=== PATIENT | female | born 1970 | race African-American/Black ===

== ENCOUNTER 2020-05-20 09:59 | Inpatient (IN) | payer MEDICARE, OTHER ==
--- NOTE | 2020-05-20 11:41 | PDOC ---
History of Present Illness - General Chief Complaint: Shortness of Breath Stated Complaint: DIFFICULTY BREATHING Time Seen by Provider: 05/20/20 10:38 - History of Present Illness Initial Comments: Pt is a 49yo F with PMH asthma, anemia, who presents with chest tightness and shortness of breath. Pt reports that she woke at 3am today with SOB, but was able to fall back asleep. Woke up again at 6am with continued SOB and chest t ightness. States that she took her albuterol nebulizer at 8:30a without relief. Chest tightness is described as midsternal pressure that radiates to her back, denies radiation to arms or neck. Denies associated n/v/diaphoresis. Reports associated cold like symptoms x5days with rhinorrhea, sore throat and cough. Reports associated epigastric pain that is non radiating, sharp in nature, not associated with PO intake. Denies any sick contacts, exposure to COVID. Reports that last week, she had similar chest tightness, associated with exertion while going up stairs, a/w nausea and dizziness. Reports that 3mo ago, had similar symptoms, saw her PCP who started her on prednisone x5days and zpack with minimal improvement in symptoms, but states that her symptoms self-resolved. PCP: Aishwarya PMH: see above PSH: Lisa knee replacement Meds: albuterol nebulizer, singulair, zyrtec Allergies: NKDA Social: denies STEVEN Review of Systems CONSTITUTIONAL: denies fever, chills, diaphoresis, generalized weakness, malaise, loss of appetite HEENT: reports rhinorrhea, nasal congestion, sore throat CARDIOVASCULAR: reports chest pain, fast HR; denies syncope, irregular heart rate, lightheadedness, peripheral edema RESPIRATORY: reports cough, shortness of breath, denies hemoptysis GASTROINTESTINAL: reports abdominal pain; denies nausea, vomiting, diarrhea, constipation, melena, hematochezia GENITOURINARY: denies dysuria, frequency, urgency, hematuria MUSCULOSKELETAL: denies myalgia, arthralgia HEMATOLOGIC/IMMUNOLOGIC: denies easy bleeding, easy bruising ENDOCRINE: denies unexplained weight gain, unexplained weight loss NEUROLOGIC: denies headache, loss of consciousness, focal weakness or paresthesias, mental status changes, bladder or bowel incontinence SKIN: denies rash, itching, pallor Physical Exam General: awake, alert, fully oriented, in no acute distress, well developed, well nourished Head: normocephalic, atraumatic Eyes: PERRL, EOMI, anicteric sclera, conjunctiva clear ENT: Auricles normal inspection, hearing grossly normal, nares patent, oropharynx clear without exudates, no nasal congestion, moist mucous membranes Neck: supple, normal ROM, no stridor Lung: equal breath sounds b/l, CTA b/l, no crackles, wheezes; no distress, spe aks full sentences Heart: RRR, normal S1, S2, no murmurs appreciated, diffusely mildly TTP in chest wall Abdomen: soft, TTP in epigastric region, normoactive bowel sounds, no guarding, rebound, masses Extremities: no edema, no erythema or tenderness Neuro: CN2-12 grossly intact, moves all extremities, normal speech, sensation intact Skin: warm, dry, normal skin turgor, capillary refill <2 seconds, no rashes or lesions noted MDM Pt is a 49yo F with PMH asthma, anemia, who presents with chest tightness and shortness of breath. vitals WNL DDx including but not limited to: ACS, asthma exacerbation, PE Workup: labs, cxr, ekg Scores - HEART score - 4 - PERC negative EKG: normal sinus rhythm, HR 68bpm, MD 172ms, QRS 92ms, QTc 418ms, TWI in V2-V6, as seen on previous EKG from 2015 CXR - no pneumothorax or pleural effusion. midline airway, appropriate vascular markings, no blunting of costophrenic angle, no cardiomegaly, as read by ED staff 05/20/20 12:23 Labs: no leukocytosis, no anemia, electrolytes WNL, troponin WNL, BNP WNL, lipase WNL Disposition: Admit tele obs Past History - Medical History Allergies/Adverse Reactions: Allergies Allergy/AdvReac Type Severity Reaction Status Date / Time No Known Allergies Allergy Verified 05/30/15 17:41 Home Medications: Ambulatory Orders Cetirizine HCl [Zyrtec] 10 mg PO DAILY 05/18/12 Albuterol Sulfate Inhaler - [Ventolin HFA Inhaler -] 2 inh IH Q4H PRN #1 inh 09/15/12 Famotidine [Pepcid -] 40 mg PO DAILY 05/21/20 Fluticasone Prop 0.05% Nasal [Flonase -] 1 spray NS DAILY 05/21/20 Montelukast Sodium [Singulair] 10 mg PO DAILY 05/21/20 Omeprazole 40 mg PO DAILY 05/21/20 Salmeterol/Fluticasone [Advair 500Mcg/50Mcg -] 1 inh IH BID 05/21/20 predniSONE [Deltasone -] See Taper PO DAILY 10 Days #53 tablet 05/21/20 Anemia: No Asthma: Yes Cancer: No Cardiac Disorders: No CVA: No COPD: No CHF: No Diabetes: No GI Disorders: No Disorders: No HTN: No Hypercholesterolemia: No Liver Disease: No Seizures: No Thyroid Disease: No - Surgical History Abdominal Surgery: Yes Cholecystectomy: Yes Orthopedic Surgery: Yes (left knee 01/07/2018, right bunion) - Reproductive History Is Patient Now?: No - Psycho-Social/Smoking History Smoking Status: No Smoking History: Never smoked Number of Cigarettes Smoked Daily: 0 - Substance Abuse Hx (Audit-C & DAST Scrn) How often the patient has a drink containing alcohol: Never Score: In Men: 4 or > Positive; In Women: 3 or > Positive: 0 Screen Result (Pos requires Nsg. Audit-10AR): Negative In the last yr the pt used illegal drug/Rx for NonMed reason: No Score: Yes response is considered Positive: 0 Screen Result (Positive result requires Nsg. DAST-10): Negative *Physical Exam - Vital Signs Last Vital Signs Temp Pulse Resp BP Pulse Ox 98.4 F 73 18 149/77 100 05/20/20 10:00 05/20/20 10:00 05/20/20 10:00 05/20/20 10:00 05/20/20 10:00 Heart Score/ECG Review - History History: Moderately suspicious - Electrocardiogram EKG: Non specific repolarization disturbance - Age Age: 45-65 - Risk Factors Risk Factors Heart Score: Yes Hx Obesity Based on the list above the patient has:: 1-2 risk factors - Troponin Troponin: </= normal limit - Score Heart Score - Total: 4 ED Treatment Course - LABORATORY CBC & Chemistry Diagram: 05/21/20 05:38 05/21/20 05:38 Discharge - Discharge Information Problems reviewed: Yes Clinical Impression/Diagnosis: Chest pain Qualifiers: Chest pain type: unspecified Qualified Code(s): R07.9 - Chest pain, unspecified Condition: Stable - Admission Yes - Follow up/Referral - Patient Discharge Instructions - Post Discharge Activity
[2020-05-20 11:52] LABS: BASO % 0.3 % (0-2.0); EOS % 1.1 % (0-4.5); HEMATOCRIT 33.5 % (32.4-45.2); HEMOGLOBIN 11.6 GM/dL (10.7-15.3); MCH 32.3 pg (25.7-33.7); MCHC 34.6 g/dl (32.0-36.0); MEAN CELL VOLUME 93.3 fl (80-96); MEAN PLT VOLUME 8.2 fl (7.5-11.1); MONO % 8.1 % (3.8-10.2); NEUT % 65.5 % (42.8-82.8); PLATELET COUNT 217 K/MM3 (134-434); RBC 3.59 M/mm3 (3.60-5.2); WHITE BLOOD COUNT 5.4 K/mm3 (4.0-10.0)
[2020-05-20 12:13] LABS: N-TERMINAL BNP 72.3 pg/ml (5-125)
[2020-05-20 12:19] LABS: ALBUMIN 3.9 g/dl (3.4-5.0); ALK PHOS 70 U/L (45-117); ANION GAP 4 MMOL/L (8-16); BLOOD UREA NITROGEN 6.8 mg/dL (7-18); CHLORIDE 108 mmol/L (98-107); CO2 29 mmol/L (21-32); CREATININE 0.7 mg/dL (0.55-1.3); GLUCOSE,RANDOM 81 mg/dL (74-106); POTASSIUM 3.5 mmol/L (3.5-5.1); SGOT/AST 20 U/L (15-37); SGPT/ALT 19 U/L (13-61); SODIUM 140 mmol/L (136-145); TOT PROT 7.7 g/dl (6.4-8.2)
--- NOTE | 2020-05-20 12:23 | PDOC ---
Documentation entered by Jasper Silver SCRIBE, acting as scribe for Isaiah Benz MD. Isaiah Benz MD: This documentation has been prepared by the Adrianne zepeda Xhesika, SCRIBE, under my direction and personally reviewed by me in its entirety. I confirm that the documentation accurately reflects all work, treatment, procedures, and medical decision making performed by me. Attending Attestation - Resident Resident Name: Lashay Valerio - ED Attending Attestation I have performed the following: I have examined & evaluated the patient, The case was reviewed & discussed with the resident, I agree w/resident's findings & plan, Exceptions are as noted - HPI HPI: 05/20/20 10:41 The patient is a 49 year old female with a significant PMH of asthma, anemia, obesity, and seasonal allergies who presents to the emergency department for SOB and chest tightness since this morning. Pt states her symptoms started at rest. Pt describes a constant chest tightness associated with sob and diaphresis and does seem to worsen when she is wakling around. she tried her albuterol at home without significant improvement. Pt also noted feeling alittle sweaty with an episode of chest tightness this morning. The patient denies headache and dizziness. Denies fever, cough, vomiting, diarrhea and constipation. Denies dysuria, frequency, urgency and hematuria. Allergies: NKDA PCP:Kimberly Deng - Physicial Exam PE: 05/20/20 12:03 GENERAL: The patient is awake, alert, and fully oriented, Nontoxic - in no acute distress. HEAD: Normocephalic, atraumatic. EYES: extraocular movements intact, sclera anicteric, conjunctiva clear. ENT: Normal voice, Moist mucous membranes. NECK: Normal range of motion, supple LUNGS: NO whezing or actue respiratory distress HEART: Regular rate and rhythm, normal S1 and S2 without murmur, rub or gallop. ABDOMEN: Soft, nontender, No guarding, no rebound. No CVA tenderness EXTREMITIES: Normal range of motion, no edema. NEUROLOGICAL: No facial assymetry, Normal speech, PSYCH: Normal mood, normal affect. SKIN: Warm, Dry, normal turgor, - Medical Decision Making 05/20/20 11:22 consider acs, pulm exam clear will obtain trop/ekg/cxr willr easess 05/20/20 12:57 trops neg will obs for acs riskstratification Heart Score/ECG Review - History History: Moderately suspicious - Electrocardiogram EKG: Non specific repolarization disturbance - Age Age: 45-65 - Risk Factors Risk Factors Heart Score: Yes Positive family hx of cardiac disease, Yes Hx Obesity Based on the list above the patient has:: 1-2 risk factors - Troponin Troponin: </= normal limit - Score Heart Score - Total: 4 - ECG Impressions Comment:: 05/20/20 12:04 Twelve-lead EKG was performed and reviewed by me. There is normal sinus rhythm with a normal rate. The axis is normal. The intervals are normal. There is normal R wave progression Flipped T waves in the anterior leads Discharge - Discharge Information Problems reviewed: Yes Clinical Impression/Diagnosis: Chest pain Qualifiers: Chest pain type: unspecified Qualified Code(s): R07.9 - Chest pain, unspecified Condition: Stable - Follow up/Referral - Patient Discharge Instructions - Post Discharge Activity
[2020-05-20] MEDS ORDERED: ALBUTEROL SO4 2.5/IPRATROPIUM 0.5 INH SOL 3 ML VIAL.NEB. NEB PRN (14:32)
--- NOTE | 2020-05-20 15:56 | EKG ---
Test Reason : Blood Pressure : / mmHG Vent. Rate : 068 BPM Atrial Rate : 068 BPM P-R Int : 172 ms QRS Dur : 092 ms QT Int : 394 ms P-R-T Axes : 033 001 001 degrees QTc Int : 418 ms NORMAL SINUS RHYTHM T WAVE ABNORMALITY, CONSIDER ANTERIOR ISCHEMIA ABNORMAL ECG WHEN COMPARED WITH ECG OF 30-MAY-2015 20:26, NO SIGNIFICANT CHANGE WAS FOUND Confirmed by JESUS ROWAN MD ([id number]) on 05/20/2020 3:55:38 PM Referred By: Confirmed By:JESUS ROWAN MD
--- NOTE | 2020-05-20 16:36 | HP ---
CHIEF COMPLAINT: Shortness of breath and chest tightness for one day PCP: Kimberly Vale HISTORY OF PRESENT ILLNESS: 49yo obese F w/ PMHx of Asthma (hospitalized in 2011), palpitations, seasonal allegies, and anemia, presents to the ED BIBEMS, after calling 911, complaining of SoB and chest tightness for one day. Ptn states that she woke up this morning at 6:30am and experienced headache, chest tightness and shortness of breath at rest, not worse with exertion. Pain described as radiating to both arms and towards her back. She proceeded to wait 2 hours, at which point at 8:30am she used her albuterol inhaler, which provided no relief, and endorsed increased chest tightness and shortness of breath. At this point, she called 911 and was brought to the emergency department. On ROS, patient endorsed mild heat intolerance, and denied any changes in vision, diaphoresis, difficulty swallowing, difficulty with bowel/bladder movements, or changes in sensation. ER course was notable for: (1)CXR: No acute pathology (2)Duonebs 1x (3)EKG: T wave inversion (4)Heart Score: 4 Recent Travel: PAST MEDICAL HISTORY: 1.)Asthma 2.)Seasonal Allergies 3.)Palpitations 4.)Obesity 5.)Anemia PAST SURGICAL HISTORY: 1.)L TKR 2.)?Cholecystectomy Social History: Smoking: No Alcohol: No Drugs: No Allergies No Known Allergies Allergy (Verified 05/30/15 17:41) HOME MEDICATIONS: Home Medications Medication Instructions Recorded Cetirizine HCl [Zyrtec] 10 mg PO DAILY 05/18/12 Albuterol Sulfate Inhaler - 2 inh IH Q4H PRN #1 inh 09/15/12 [Ventolin HFA Inhaler -] REVIEW OF SYSTEMS CONSTITUTIONAL: Absent: fever, chills, diaphoresis, generalized weakness, malaise, loss of appetite, weight change HEENT: Absent: rhinorrhea, nasal congestion, throat swelling, difficulty swallowing, mouth swelling, ear pain, eye pain, visual changes CARDIOVASCULAR: Absent: chest pain, syncope, palpitations, irregular heart rate, lightheadedness, peripheral edema RESPIRATORY: Absent: orthopnea, wheezing, stridor, hemoptysis GASTROINTESTINAL: Absent: abdominal distension, nausea, vomiting, diarrhea, constipation, melena, hematochezia GENITOURINARY: Absent: dysuria, frequency, urgency, hesitancy, hematuria, flank pain, genital pain MUSCULOSKELETAL: Absent: myalgia, arthralgia, joint swelling, back pain, neck pain SKIN: Absent: rash, itching, pallor ENDOCRINE: Absent: unexplained weight gain, unexplained weight loss, cold intolerance NEUROLOGIC: Absent: headache, focal weakness or paresthesias, dizziness, unsteady gait, seizure, mental status changes, bladder or bowel incontinence PSYCHIATRIC: Absent: anxiety, depression PHYSICAL EXAMINATION Vital Signs - 24 hr 05/20/20 05/20/20 10:00 13:58 Temperature 98.4 F 98.1 F Pulse Rate 73 Pulse Rate [ 70 Apical] Respiratory 18 18 Rate Blood Pressure 149/77 Blood Pressure 121/61 [Left Arm] O2 Sat by Pulse 100 100 Oximetry (%) GENERAL: Awake, alert, and fully oriented, in no acute distress. HEAD: Normal with no signs of trauma. EYES: Abnormal extra-occular movements. PERRLA EARS, NOSE, THROAT: Ears normal, nares patent, oropharynx clear without exudates. Moist mucous membranes. NECK: Thyroid tender to palpation Normal range of motion, supple without lymphadenopathy, LUNGS: Breath sounds equal, clear to auscultation bilaterally. No wheezes, and no crackles. No accessory muscle use. HEART: Regular rate and rhythm, normal S1 and S2 without murmur, rub or gallop. ABDOMEN: Soft, tender to deep palpation not distended, normoactive bowel sounds, no guarding MUSCULOSKELETAL: Normal range of motion at all joints. No bony deformities or tenderness. UPPER EXTREMITIES: 2+ pulses, warm, well-perfused. No cyanosis. No clubbing. No peripheral edema. LOWER EXTREMITIES: 2+ pulses, warm, well-perfused. No calf tenderness. NEUROLOGICAL: Normal speech. Gait not tested. PSYCHIATRIC: Cooperative. Good eye contact. Appropriate mood and affect. SKIN: Warm, dry, normal turgor, no rashes or lesions noted, normal capillary refill. Laboratory Results - last 24 hr CBC, BMP 05/20/20 11:30 05/20/20 11:30 Troponin, BNP 05/20/20 05/20/20 05/20/20 11:30 11:30 15:10 Troponin I < 0.02 < 0.02 B-Natriuretic Peptide 72.3 Active Medications Generic Name Dose Route Start Last Admin Trade Name Freq PRN Reason Stop Dose Admin Albuterol/Ipratropium 1 amp 05/20/20 14:32 Duoneb - NEB Q4H PRN SHORTNESS OF BREATH Enoxaparin Sodium 40 mg 05/20/20 16:30 Lovenox - SQ DAILY LILLY Famotidine 20 mg 05/20/20 16:45 Pepcid - PO DAILY LILLY Fluticasone Propionate 1 spray 05/20/20 16:45 Flonase - NS DAILY LILLY Lidocaine/Aluminum/Magnesium/Simeth 5 ml 05/20/20 18:00 Magic Mouthwash *Sjr Formula* - MM Q6HPO LILLY Methylprednisolone Sodium Succinate 60 mg 05/20/20 18:00 Solu-Medrol - IVPUSH Q8H-IV LILLY Montelukast Sodium 5 mg 05/20/20 22:00 Singulair - PO HS LILLY ASSESSMENT/PLAN: 49yo obese F w/ PMHx of Asthma (hospitalized in 2011), palpitations, seasonal allegies, and anemia, presents to the ED BIBEMS, after calling 911, complaining of SoB and chest tightness. CXR: No acute Pathology EKG: NORMAL SINUS RHYTHM T WAVE ABNORMALITY, CONSIDER ANTERIOR ISCHEMIA. No change from previous EKG ACUTE ON CHRONIC ASTHMA EXACERBATION -Hx of Asthma w/ Hospitalization in 2011 -Hx of seasonal allergies -Reports SoB -Start Solumedrol 60mg q8 -Start Singulair -Start Flonase -FU Peak Flow -FU Pulm Consult GASTROESOPHAGEAL REFLUX DISEASE -Endorses throat pain possibly 2/2 coughing -Start Famotidine 20mg PO -Start Magic Mouthwash ACS RULE OUT -Hx of chest tightness -BP on each arm equal -Unlikely 2/2 Troponins Negative x2 -FU EKG for any progression of T waves -Consult Cardiology RULE OUT HYPERTHYROIDISM -Hx of heat intolerance -Hx of palpitations -FU TSH, FT4 Family Medical History Family History: As Documented Visit type - Emergency Visit Emergency Visit: Yes ED Registration Date: 05/20/20 Care time: The patient presented to the Emergency Department on the above date and was hospitalized for further evaluation of their emergent condition. - New Patient This patient is new to me today: Yes Date on this admission: 05/20/20 - Critical Care Critical Care patient: No ATTENDING PHYSICIAN STATEMENT I saw and evaluated the patient. I reviewed the resident's note and discussed the case with the resident. I agree with the resident's findings and plan as documented. SUBJECTIVE: OBJECTIVE: ASSESSMENT AND PLAN:
--- NOTE | 2020-05-20 19:18 | PN ---
Teaching Attending Note Name of Resident: Sherif Teixeira ATTENDING PHYSICIAN STATEMENT I saw and evaluated the patient. I reviewed the resident's note and discussed the case with the resident. I agree with the resident's findings and plan as documented. SUBJECTIVE: Patient seen and examined at bedside, admitted for acute SAIMA, and ACS to be ruled out. Low likelihood of ACS considering trops neg. x2, EKG however showing diffuse TWI, will admit for obs. OBJECTIVE: GA NAD, answering to questions intermittent cough HEENT NC/aT, no nasal flaring Chest end expiratory wheezing b/l, no increased WOB CVS s1, S2+, RRR Abd obese, Soft, NT, BS+ Ext no LE edema, no calf tenderness Vital Signs - 24 hr 05/20/20 05/20/20 10:00 13:58 Temperature 98.4 F 98.1 F Pulse Rate 73 Pulse Rate [ 70 Apical] Respiratory 18 18 Rate Blood Pressure 149/77 Blood Pressure 121/61 [Left Arm] O2 Sat by Pulse 100 100 Oximetry (%) Laboratory Results - last 24 hr 05/20/20 05/20/20 05/20/20 11:30 11:30 11:30 WBC 5.4 RBC 3.59 L Hgb 11.6 Hct 33.5 MCV 93.3 MCH 32.3 MCHC 34.6 RDW 15.0 Plt Count 217 MPV 8.2 Absolute Neuts (auto) 3.5 Neutrophils % 65.5 Lymphocytes % 25.0 D Monocytes % 8.1 D Eosinophils % 1.1 Basophils % 0.3 Nucleated RBC % 0 Sodium 140 Potassium 3.5 Chloride 108 H Carbon Dioxide 29 Anion Gap 4 L BUN 6.8 L Creatinine 0.7 Est GFR (CKD-EPI)AfAm 118.74 Est GFR (CKD-EPI)NonAf 102.45 Random Glucose 81 Calcium 9.0 Total Bilirubin 1.0 AST 20 ALT 19 Alkaline Phosphatase 70 Creatine Kinase 58 Troponin I < 0.02 B-Natriuretic Peptide 72.3 Total Protein 7.7 Albumin 3.9 Lipase 113 Urine HCG, Qual 05/20/20 05/20/20 15:10 15:55 WBC RBC Hgb Hct MCV MCH MCHC RDW Plt Count MPV Absolute Neuts (auto) Neutrophils % Lymphocytes % Monocytes % Eosinophils % Basophils % Nucleated RBC % Sodium Potassium Chloride Carbon Dioxide Anion Gap BUN Creatinine Est GFR (CKD-EPI)AfAm Est GFR (CKD-EPI)NonAf Random Glucose Calcium Total Bilirubin AST ALT Alkaline Phosphatase Creatine Kinase Troponin I < 0.02 B-Natriuretic Peptide Total Protein Albumin Lipase Urine HCG, Qual Negative Home Medications Medication Instructions Recorded Cetirizine HCl [Zyrtec] 10 mg PO DAILY 05/18/12 Albuterol Sulfate Inhaler - 2 inh IH Q4H PRN #1 inh 09/15/12 [Ventolin HFA Inhaler -] Current Medications Generic Name Dose Route Start Last Admin Trade Name Elana PRN Reason Stop Dose Admin Albuterol/Ipratropium 1 amp 05/20/20 14:32 Duoneb - NEB Q4H PRN SHORTNESS OF BREATH Enoxaparin Sodium 40 mg 05/20/20 16:30 Lovenox - SQ DAILY LILLY Famotidine 20 mg 05/20/20 16:45 Pepcid - PO DAILY LILLY Fluticasone Propionate 1 spray 05/20/20 16:45 Flonase - NS DAILY LILLY Lidocaine/Aluminum/Magnesium/Simeth 5 ml 05/20/20 18:00 Magic Mouthwash *Sjr Formula* - MM Q6HPO LILLY Methylprednisolone Sodium Succinate 60 mg 05/20/20 18:00 Solu-Medrol - IVPUSH Q8H-IV LILLY Montelukast Sodium 5 mg 05/20/20 22:00 Singulair - PO HS LILLY ASSESSMENT AND PLAN: 49 F Moderate persistent asthma with acute exacerbation HTN Allergic rhinitis Seasonal allergies Suspected GERD ACS ruled out Plan: Cont. duonebs/IV steroids/PPI/nasal steroids Monitoring w/ peak flow meter, obtain Utox, TFTs Pulmonary evaluation for uncontrolled asthma DVT ppx: Lovenox SC
[2020-05-20] MEDS ORDERED: ENOXAPARIN NA (PORCINE) 40 MG/0.4 ML DISP.SYRIN SQ ONE (20:23)
[2020-05-20] MEDS ORDERED: methylPREDNISolone NA SUCC 40 MG/1 ML VIAL ONE (20:23)
[2020-05-20] MEDS ORDERED: FAMOTIDINE 20 MG TABLET ONE (20:23)
[2020-05-20] MEDS: ENOXAPARIN NA (PORCINE) 40 MG/0.4 ML DISP.SYRIN SQ SCH (20:39)
[2020-05-20] MEDS: MAG HYDROX/ALH/SMC/DPHA/LIDO 240 ML MOUTHWASH MM SCH ×2 (20:39→23:57)
[2020-05-20] MEDS: FAMOTIDINE 20 MG TABLET PO SCH (20:40)
[2020-05-20] MEDS: methylPREDNISolone NA SUCC 40 MG/1 ML VIAL IVPUSH SCH (20:40)
[2020-05-20] MEDS ORDERED: MONTELUKAST NA 5 MG TAB.CHEW PO SCH (22:00)
[2020-05-20] MEDS: FLUTICASONE PROP 0.05% 16 GM NASAL SPRAY NS SCH (22:31)
[2020-05-20] MEDS ORDERED: ALBUTEROL SO4 HFA INHALER IH PRN (23:20)
[2020-05-21 00:30] VITALS: BMI 36.2
[2020-05-21] MEDS: methylPREDNISolone NA SUCC 40 MG/1 ML VIAL IVPUSH SCH ×2 (02:57→09:37)
[2020-05-21] MEDS: MAG HYDROX/ALH/SMC/DPHA/LIDO 240 ML MOUTHWASH MM SCH ×2 (06:44→13:00)
[2020-05-21 07:07] LABS: BASO % 0.1 % (0-2.0); HEMATOCRIT 35.1 % (32.4-45.2); HEMOGLOBIN 12.2 GM/dL (10.7-15.3); LYMPH % 7.4 % (8-40); MCH 32.2 pg (25.7-33.7); MCHC 34.8 g/dl (32.0-36.0); MEAN CELL VOLUME 92.5 fl (80-96); MEAN PLT VOLUME 8.2 fl (7.5-11.1); MONO % 0.6 % (3.8-10.2); NEUT % 91.9 % (42.8-82.8); PLATELET COUNT 241 K/MM3 (134-434); RDW 14.6 % (11.6-15.6); WHITE BLOOD COUNT 6.3 K/mm3 (4.0-10.0)
[2020-05-21 07:31] LABS: ALBUMIN 3.7 g/dl (3.4-5.0); BLOOD UREA NITROGEN 9.9 mg/dL (7-18); CALCIUM 9.3 mg/dL (8.5-10.1); CREATININE 0.7 mg/dL (0.55-1.3); MAGNESIUM 2.2 mg/dL (1.8-2.4); PHOSPHOROUS 3.5 mg/dL (2.5-4.9); POTASSIUM 3.9 mmol/L (3.5-5.1); TOT PROT 7.5 g/dl (6.4-8.2)
--- NOTE | 2020-05-21 09:27 | EKG ---
Test Reason : Blood Pressure : / mmHG Vent. Rate : 063 BPM Atrial Rate : 063 BPM P-R Int : 176 ms QRS Dur : 098 ms QT Int : 408 ms P-R-T Axes : 045 -03 -01 degrees QTc Int : 417 ms NORMAL SINUS RHYTHM MINIMAL VOLTAGE CRITERIA FOR LVH, MAY BE NORMAL VARIANT T WAVE ABNORMALITY, CONSIDER ANTERIOR ISCHEMIA ABNORMAL ECG WHEN COMPARED WITH ECG OF 20-MAY-2020 11:06, NO SIGNIFICANT CHANGE WAS FOUND Confirmed by MD OLLIE, RYNE ([id number]) on 05/21/2020 9:27:11 AM Referred By: Confirmed By:RYNE LEVIN MD
[2020-05-21] MEDS: FLUTICASONE PROP 0.05% 16 GM NASAL SPRAY NS SCH (09:36)
[2020-05-21] MEDS: ENOXAPARIN NA (PORCINE) 40 MG/0.4 ML DISP.SYRIN SQ SCH (09:37)
[2020-05-21] MEDS: FAMOTIDINE 20 MG TABLET PO SCH (09:37)
[2020-05-21 09:51] VITALS: PULSE 86
--- NOTE | 2020-05-21 09:51 | CON.CARD ---
Consult Consult Specialty:: Cardiology Referred by:: Hospitalist Service Reason for Consultation:: Cardiac evaluation - History of Present Illness Chief Complaint: Shortness of breath History of Present Illness: Patient is a 49 year old female with underlying history of bronchial asthma and seasonal allergy who presented with shortness of breath and chest tightness. She experienced headache, shortness of breath and chest tightness upon waking up and used her inhaler without any relief of symptoms. Initial troponin was negative and she was tested negative for COVID. Currently, she denies chest pain or palpitations. She is breathing comfortable. She denies PND or orthopnea. She denies fever or chills. She denies nausea, vomiting, diarrhea or abdominal pain. She denies headache or lightheadedness. She denies cough or expectorations. - History Source History Provided By: Patient, Medical Record Limitations to Obtaining History: No Limitations - Past Medical History Pulmonary: Yes: Asthma ...LMP: 12/04/16 ...LMP Comment: 2017 - Alcohol/Substance Use Hx Alcohol Use: No - Smoking History Smoking history: Never smoked Have you smoked in the past 12 months: No Aproximately how many cigarettes per day: 0 Home Medications - Allergies Allergies/Adverse Reactions: Allergies Allergy/AdvReac Type Severity Reaction Status Date / Time No Known Allergies Allergy Verified 05/30/15 17:41 - Home Medications Home Medications: Ambulatory Orders Cetirizine HCl [Zyrtec] 10 mg PO DAILY 05/18/12 Albuterol Sulfate Inhaler - [Ventolin HFA Inhaler -] 2 inh IH Q4H PRN #1 inh 09/15/12 Review of Systems - Review of Systems Constitutional: denies: Chills, Fever Cardiovascular: reports: Shortness of Breath. denies: Chest Pain, Palpitations Respiratory: reports: SOB, SOB on Exertion. denies: Cough, Hemoptysis, O rthopnea, PND, Wheezing Gastrointestinal: denies: Abdominal Pain, Constipation, Diarrhea, Melena, Nausea, Rectal Bleeding, Vomiting Musculoskeletal: denies: Back Pain, Joint Pain Neurological: denies: Dizziness, Headache, Seizure, Syncope Vital Signs: Vital Signs Temperature 98 F 05/21/20 09:00 Pulse Rate 86 05/21/20 09:00 Respiratory Rate 18 05/21/20 09:00 Blood Pressure 154/76 05/21/20 09:00 O2 Sat by Pulse Oximetry (%) 98 05/21/20 09:00 Eyes: Yes: PERRL HENT: Yes: Atraumatic Neck: Yes: Supple Respiratory: Yes: CTA Bilaterally Gastrointestinal: Yes: Normal Bowel Sounds, Soft. No: Tenderness Cardiovascular: Yes: Regular Rate and Rhythm JVD: No Carotid Bruit: No PMI: Non-Displaced Heart Sounds: Yes: S1, S2. No: Gallop Edema: No - Other Data Labs, Other Data: CBC, BMP 05/21/20 05:38 05/21/20 05:38 Troponin, BNP 05/20/20 05/20/20 05/20/20 11:30 11:30 15:10 Troponin I < 0.02 < 0.02 B-Natriuretic Peptide 72.3 Laboratory Results - last 24 hr 05/20/20 05/21/20 05/21/20 20:30 00:00 05:38 WBC 6.3 RBC 3.80 Hgb 12.2 Hct 35.1 MCV 92.5 MCH 32.2 MCHC 34.8 RDW 14.6 Plt Count 241 MPV 8.2 Absolute Neuts (auto) 5.8 Total Counted 100 Neutrophils % 91.9 H D Neutrophils % (Manual) 95.0 H Band Neutrophils % 2.0 Lymphocytes % 7.4 L D Lymphocytes % (Manual) 3.0 L Monocytes % 0.6 L D Monocytes % (Manual) 0 L Eosinophils % 0.0 D Eosinophils % (Manual) 0.0 Basophils % 0.1 Basophils % (Manual) 0.0 Myelocytes % (Man) 0 Promyelocytes % (Man) 0 Blast Cells % (Manual) 0 Nucleated RBC % 0 Metamyelocytes 0 Plasma Cells 0 Hypochromia 0 Platelet Estimate Normal Platelet Comment Present Polychromasia 1+ Poikilocytosis 0 Anisocytosis 0 Microcytosis 0 Macrocytosis 0 Sodium Potassium Chloride Carbon Dioxide Anion Gap BUN Creatinine Est GFR (CKD-EPI)AfAm Est GFR (CKD-EPI)NonAf POC Glucometer 121 Random Glucose Calcium Phosphorus Magnesium Total Bilirubin AST ALT Alkaline Phosphatase Troponin I Total Protein Albumin TSH Cancelled Free T4 Cancelled Thyroxine (T4) Urine HCG, Qual COVID-19 (VENESSA) 05/21/20 05/21/20 05:38 05:50 WBC RBC Hgb Hct MCV MCH MCHC RDW Plt Count MPV Absolute Neuts (auto) Total Counted Neutrophils % Neutrophils % (Manual) Band Neutrophils % Lymphocytes % Lymphocytes % (Manual) Monocytes % Monocytes % (Manual) Eosinophils % Eosinophils % (Manual) Basophils % Basophils % (Manual) Myelocytes % (Man) Promyelocytes % (Man) Blast Cells % (Manual) Nucleated RBC % Metamyelocytes Plasma Cells Hypochromia Platelet Estimate Platelet Comment Polychromasia Poikilocytosis Anisocytosis Microcytosis Macrocytosis Sodium 139 Potassium 3.9 Chloride 106 Carbon Dioxide 28 Anion Gap 5 L BUN 9.9 Creatinine 0.7 Est GFR (CKD-EPI)AfAm 118.74 Est GFR (CKD-EPI)NonAf 102.45 POC Glucometer 138 Random Glucose 130 H Calcium 9.3 Phosphorus 3.5 Magnesium 2.2 Total Bilirubin 1.0 AST 17 ALT 18 Alkaline Phosphatase 68 Troponin I Total Protein 7.5 Albumin 3.7 TSH Free T4 Thyroxine (T4) Urine HCG, Qual COVID-19 (VENESSA) Sinus rhythm with T abnormality in anterior leads Echo: Pending Imaging - Results Chest X-ray: Report Reviewed (Unremarkable) EKG: Report Reviewed Problem List - Problems (1) Shortness of breath Code(s): R06.02 - SHORTNESS OF BREATH (2) Abnormal ECG Code(s): R94.31 - ABNORMAL ELECTROCARDIOGRAM [ECG] [EKG] (3) Asthma Code(s): J45.909 - UNSPECIFIED ASTHMA, UNCOMPLICATED Assessment/Plan 1. Shortness of breath with underlying bronchial asthma with exacerbation 2. Abnormal ECG rule out CAD PLAN: 1. Echocardiography to assess LV/RV and valvular function 2. Trend troponin 3. Bronchodilator and steroids taper 4. If above negative, further cardiac work up including stress testing can be done as outpatient Patient is to follow up in our office, [facility] Thank you for consultation Candido Sterling MD
[2020-05-21 10:32] LABS: ANISOCYTOSIS 0; MACROCYTOSIS 0; PLATELET ESTIMATE NORMAL
[2020-05-21] MEDS ORDERED: PT OWN MED DRAWER 7, Y5N ONE (12:49)
--- NOTE | 2020-05-21 12:58 | PN ---
Progress Note (short form) - Note Progress Note: PULMONARY CONSULTATION DICTATED 05/21/20 IMP DYSPNEA ACUTE ASTHMA EXACERBATION SEASONAL ALLERGIES PLAN PREDNISONE INHALED BRONCHODILATORS MONITOR PEAK FLOW IGE LEVEL PFTS OUTPATIENT DR AMAYA Problem List - Problems (1) Chest pain Code(s): R07.9 - CHEST PAIN, UNSPECIFIED Qualifiers: Chest pain type: unspecified Qualified Code(s): R07.9 - Chest pain, unspecified (2) Asthma Code(s): J45.909 - UNSPECIFIED ASTHMA, UNCOMPLICATED (3) Shortness of breath Code(s): R06.02 - SHORTNESS OF BREATH
--- NOTE | 2020-05-21 13:39 | ECHO ---
Name: CRISTO MOODY Exam:Adult Echocardiogram Study Date: 05/21/2020 11:46 AM Age: 49 yrs Reason For Study: CHEST TIGHTNESS Height: 64 in Weight: 211 lb BSA: 2.0 m2 MMode/2D Measurements & Calculations RVDd: 3.0 cm Ao root diam: 2.5 cm IVSd: 0.86 cm LA dimension: 3.6 cm LVIDd: 4.7 cm ACS: 1.6 cm LVIDs: 3.1 cm LVPWd: 0.97 cm EDV(Teich): 104.8 ml LVOT diam: 2.2 cm ESV(Teich): 37.9 ml LAV (MOD-bp): 60.0 ml TAPSE: 2.4 cm RV S Michael: 13.1 cm/sec Doppler Measurements & Calculations MV E max michael: 72.1 cm/sec Ao V2 max: 148.0 cm/sec MV A max michael: 94.8 cm/sec Ao max P.8 mmHg MV E/A: 0.76 Ao V2 mean: 96.3 cm/sec MV dec time: 0.21 sec Ao mean P.3 mmHg Ao V2 VTI: 25.4 cm FRANCISCO JAVIER(I,D): 3.2 cm2 FRANCISCO JAVIER(V,D): 3.2 cm2 LV V1 max P.8 mmHg SV(LVOT): 80.5 ml LV V1 mean P.5 mmHg LV V1 max: 120.4 cm/sec LV V1 mean: 71.1 cm/sec LV V1 VTI: 20.8 cm TR max michael: 227.4 cm/sec PA V2 max: 104.5 cm/sec TR max P.7 mmHg PA max P.4 mmHg PA acc slope: 586.0 cm/sec2 PA acc time: 0.18 sec Med Peak E' Michael: 7.9 cm/sec PA pr(Accel): -0.22 mmHg Med E/e': 9.1 Lat Peak E' Michael: 9.3 cm/sec Lat E/e': 7.8 Left Ventricle The left ventricular size, thickness and function are normal. Ejection Fraction = 60%. The transmitra l spectral Doppler flow pattern is normal for age. Right Ventricle The right ventricle is normal in size and function. Atria Normal left and right atrial size and function. Mitral Valve The mitral valve is normal in structure and function. There is trace mitral regurgitation. Tricuspid Valve The tricuspid valve is normal in structure and function. No tricuspid regurgitation. There was insuff icient TR detected to calculate RV systolic pressure. Aortic Valve The aortic valve is normal in structure and function. Pulmonic Valve The pulmonic valve is not well seen, but is grossly normal. Great Vessels The aortic root is normal size. Normal aortic arch, descending and ascending aorta. Pericardium/Pleura There is no pericardial effusion. Interpretation Summary This was essentially a normal study. MD Monica Judge 05/21/2020 01:38 PM
[2020-05-21 15:12] VITALS: BP 154/75; TEMP 98.5
--- NOTE | 2020-05-21 15:42 | CONS ---
PULMONARY CONSULTATION DATE OF CONSULTATION: 05/21/2020 REFERRING PHYSICIAN: Herb Luong MD HISTORY: Patient is a 49-year-old female, past medical history of asthma, no history of respiratory failure, hospitalized in 2011; palpitations; seasonal allergies; anemia, nonsmoker, admitted to on May 20 with complaint of shortness of breath and chest tightness of 1 day duration. Patient states she woke up on the morning of admission complaining of a headache, some chest tightness and shortness of breath at rest. She also describes the chest discomfort as radiating to both arms and towards her back. She apparently waited 2 hours until approximately 8:30 a.m. when she used her albuterol inhaler which offered no relief at which time she presented to the emergency room. Patient denies any nausea, vomiting or diaphoresis. She does complain of some chest tightness. During her hospitalization the patient was started on IV steroids, inhaled bronchodilators, good clinical response. PAST MEDICAL HISTORY: Again, includes asthma, seasonal allergies, palpitations, anemia. REVIEW OF SYSTEMS: Positive shortness of breath. Positive chest tightness. No cough. No hemoptysis. No fever. No weight loss. No night sweats. CURRENT MEDICATIONS: Include Medrol, Lovenox, albuterol, DuoNeb, Flonase, Pepcid, Singulair and Magic Mouthwash. PHYSICAL EXAMINATION: General: Patient is a well-developed, well-nourished female awake, alert in no acute distress. Vital Signs: She is currently afebrile. Blood pressure is 154/76. Respiratory rate is 18. O2 saturation is 98% on room air. HEENT: Normocephalic, atraumatic. Neck: Supple. Heart: Regular with S1, S2. Chest: Clear. Abdomen: Soft. Bowel sounds are positive. Extremities: No cyanosis or edema. LABORATORIES: WBC of 6.3, hemoglobin 12.2, hematocrit 35.1, a platelet count of 241,000. BUN 9, creatinine 0.7. COVID is negative. Chest x-ray: No infiltrates and no effusions. IMPRESSION: 1. Dyspnea secondary to acute asthma exacerbation. 2. History of seasonal allergies. SUGGEST: Prednisone, inhaled bronchodilators. Monitor peak flow. Serum IgE level as outpatient, alpha-1 antitrypsin level as outpatient, PFTs as outpatient. HERB AMAYA M.D. ROHITH/[id number]
--- NOTE | 2020-05-21 16:16 | DS ---
Physical Exam: SUBJECTIVE: Patient seen and examined this morning. Ptn endorses decreased "chest tightness" likely 2/2 muscular reasons, as well as improved breathing. Denies SoB, CP, REA, changes in vision. Talking in full sentences, no acute distress. OBJECTIVE: Vital Signs Period Temp Pulse Resp BP Sys/Shepherd Pulse Ox Last 24 Hr 97.8 F-98.8 F 66-86 18-18 122-154/73-93 98-100 PHYSICAL EXAM ENERAL: Awake, alert, and fully oriented, in no acute distress. HEAD: Normal with no signs of trauma. EYES: Abnormal extra-occular movements. PERRLA EARS, NOSE, THROAT: Ears normal, nares patent, oropharynx clear without exudates. Moist mucous membranes. NECK: Thyroid tender to palpation Normal range of motion, supple without lymphadenopathy, LUNGS: Breath sounds equal, clear to auscultation bilaterally. No wheezes, and no crackles. No accessory muscle use. HEART: Regular rate and rhythm, normal S1 and S2 without murmur, rub or gallop. ABDOMEN: Soft, tender to deep palpation not distended, normoactive bowel sounds, no guarding MUSCULOSKELETAL: Normal range of motion at all joints. No bony deformities or tenderness. UPPER EXTREMITIES: 2+ pulses, warm, well-perfused. No cyanosis. No clubbing. No peripheral edema. LOWER EXTREMITIES: 2+ pulses, warm, well-perfused. No calf tenderness. NEUROLOGICAL: Normal speech. Gait not tested. PSYCHIATRIC: Cooperative. Good eye contact. Appropriate mood and affect. SKIN: Warm, dry, normal turgor, no rashes or lesions noted, normal capillary refill. LABS Laboratory Results - last 24 hr 05/20/20 05/20/20 05/20/20 13:05 15:10 15:55 WBC RBC Hgb Hct MCV MCH MCHC RDW Plt Count MPV Absolute Neuts (auto) Total Counted Neutrophils % Neutrophils % (Manual) Band Neutrophils % Lymphocytes % Lymphocytes % (Manual) Monocytes % Monocytes % (Manual) Eosinophils % Eosinophils % (Manual) Basophils % Basophils % (Manual) Myelocytes % (Man) Promyelocytes % (Man) Blast Cells % (Manual) Nucleated RBC % Metamyelocytes Plasma Cells Hypochromia Platelet Estimate Platelet Comment Polychromasia Poikilocytosis Anisocytosis Microcytosis Macrocytosis Sodium Potassium Chloride Carbon Dioxide Anion Gap BUN Creatinine Est GFR (CKD-EPI)AfAm Est GFR (CKD-EPI)NonAf POC Glucometer Random Glucose Calcium Phosphorus Magnesium Total Bilirubin AST ALT Alkaline Phosphatase Troponin I < 0.02 Total Protein Albumin TSH 2.59 Free T4 1.07 Thyroxine (T4) 12.0 Urine HCG, Qual Negative COVID-19 (VENESSA) Not detected 05/20/20 05/21/20 05/21/20 20:30 00:00 05:38 WBC 6.3 RBC 3.80 Hgb 12.2 Hct 35.1 MCV 92.5 MCH 32.2 MCHC 34.8 RDW 14.6 Plt Count 241 MPV 8.2 Absolute Neuts (auto) 5.8 Total Counted 100 Neutrophils % 91.9 H D Neutrophils % (Manual) 95.0 H Band Neutrophils % 2.0 Lymphocytes % 7.4 L D Lymphocytes % (Manual) 3.0 L Monocytes % 0.6 L D Monocytes % (Manual) 0 L Eosinophils % 0.0 D Eosinophils % (Manual) 0.0 Basophils % 0.1 Basophils % (Manual) 0.0 Myelocytes % (Man) 0 Promyelocytes % (Man) 0 Blast Cells % (Manual) 0 Nucleated RBC % 0 Metamyelocytes 0 Plasma Cells 0 Hypochromia 0 Platelet Estimate Normal Platelet Comment Present Polychromasia 1+ Poikilocytosis 0 Anisocytosis 0 Microcytosis 0 Macrocytosis 0 Sodium Potassium Chloride Carbon Dioxide Anion Gap BUN Creatinine Est GFR (CKD-EPI)AfAm Est GFR (CKD-EPI)NonAf POC Glucometer 121 Random Glucose Calcium Phosphorus Magnesium Total Bilirubin AST ALT Alkaline Phosphatase Troponin I Total Protein Albumin TSH Cancelled Free T4 Cancelled Thyroxine (T4) Urine HCG, Qual COVID-19 (VENESSA) 05/21/20 05/21/20 05:38 05:50 WBC RBC Hgb Hct MCV MCH MCHC RDW Plt Count MPV Absolute Neuts (auto) Total Counted Neutrophils % Neutrophils % (Manual) Band Neutrophils % Lymphocytes % Lymphocytes % (Manual) Monocytes % Monocytes % (Manual) Eosinophils % Eosinophils % (Manual) Basophils % Basophils % (Manual) Myelocytes % (Man) Promyelocytes % (Man) Blast Cells % (Manual) Nucleated RBC % Metamyelocytes Plasma Cells Hypochromia Platelet Estimate Platelet Comment Polychromasia Poikilocytosis Anisocytosis Microcytosis Macrocytosis Sodium 139 Potassium 3.9 Chloride 106 Carbon Dioxide 28 Anion Gap 5 L BUN 9.9 Creatinine 0.7 Est GFR (CKD-EPI)AfAm 118.74 Est GFR (CKD-EPI)NonAf 102.45 POC Glucometer 138 Random Glucose 130 H Calcium 9.3 Phosphorus 3.5 Magnesium 2.2 Total Bilirubin 1.0 AST 17 ALT 18 Alkaline Phosphatase 68 Troponin I Total Protein 7.5 Albumin 3.7 TSH Free T4 Thyroxine (T4) Urine HCG, Qual COVID-19 (VENESSA) HOSPITAL COURSE: Date of Admission:05/20/20 ECHO: EF 60%, trace mitral regurg, rest wnl CXR: No acute Pathology EKG: NORMAL SINUS RHYTHM T WAVE ABNORMALITY, CONSIDER ANTERIOR ISCHEMIA. No change from previous EKG Date of Discharge: 05/21/20 49yo obese F w/ PMHx of Asthma (hospitalized in 2011), palpitations, seasonal allegies, and anemia, presents to the ED BIBEMS, after calling 911, complaining of SoB and chest tightness for one day. Ptn states that she woke up this morning at 6:30am and experienced headache, chest tightness and shortness of breath at rest, not worse with exertion. Pain described as radiating to both arms and towards her back. She proceeded to wait 2 hours, at which point at 8:30am she used her albuterol inhaler, which provided no relief, and endorsed increased chest tightness and shortness of breath. At this point, she called 911 and was brought to the emergency department. On ROS, patient endorsed mild heat intolerance, and denied any changes in vision, diaphoresis, difficulty swallowing, difficulty with bowel/bladder movements, or changes in sensation. ER course was notable for: (1)CXR: No acute pathology (2)Duonebs 1x (3)EKG: T wave inversion (4)Heart Score: 4 The patient was admitted to the floor where she was started on solumedrol 60 q8, duonebs, fluticasone, famotidine, singulair, and magic mouthwash. Patient showed improvement in symptoms. Her chest tightness was deemed to be due to muskuloskeletal reasons and ACS was ruled out in favor of acute asthma exacerbation. Additionally, TSH FT4 were normal and thyroid pathology was ruled out. The patient was DCd on a steroid taper. Of Note: Discharge medications were changed following patient's departure to reflect Nystatin for her tinea pedis infection, as well as DCing Flonase. Minutes to complete discharge: 36 Discharge Summary Problems reviewed: Yes Reason For Visit: ACUTE CORONARY SYNDROME Current Active Problems Chest pain (Acute) Abnormal ECG (Chronic) Asthma (Chronic) Condition: Stable - Instructions Diet, Activity, Other Instructions: Your visit: You were admitted to the hospital for shortness of breath and chest tightness. You were found to have an asthma attack. You were treated with medication to improve your breathing. Of note, during your course here, we additionally found: 1.)Abnormal heart rhythm on your EKG, for which we have referred you to a snow removing supervisor for. Medications changes: -Please take Prednisone as directed below for 10 days. It is important to take it as prescribed for the full 10 days: Day: Dose: Pills #: 1 60mg 12 2 50mg 10 3 40mg 8 4 30mg 6 5 20mg 4 6 20mg 4 7 15mg 3 8 10mg 2 9 5mg 1 10 5mg 1 -Continue to take all other home medications as prescribed. Follow up: - Please follow-up with your Mainframe Architect or Dr. Sherif Hamilton with in 1 week to evaluate your asthma. - Please follow-up with Dr. Candido Sterling (Cardiology) within 1 week to discuss your abnormal heart rhythm. - Please follow-up with Dr. Jorge Brown (ENT) in 1 week for allergy testing. - Please follow-up with Dr. Kimberly Vale (Primary Care) in 2 weeks. Additional Instructions: -You are being discharged to your home. -Please return to the Emergency Department if you experience worsening pain, fevers, chills, shortness of breath, or chest pain, or if you experience any worsening, new or concerning symptoms. Referrals: Sherif Hamilton MD [Staff Physician] - 1 Week Kimberly Neff NP [Primary Care Provider] - 2 Weeks Candido Sterling MD [Staff Physician] - 1 Week Jorge Brown MD [Staff Physician] - 1 Week Disposition: HOME - Home Medications Comprehensive Discharge Medication List: Ambulatory Orders Cetirizine HCl [Zyrtec] 10 mg PO DAILY 05/18/12 Albuterol Sulfate Inhaler - [Ventolin HFA Inhaler -] 2 inh IH Q4H PRN #1 inh 01/10/13 Famotidine [Pepcid -] 40 mg PO DAILY 05/21/20 Fluticasone Prop 0.05% Nasal [Flonase -] 1 spray NS DAILY 05/21/20 Montelukast Sodium [Singulair] 10 mg PO DAILY 05/21/20 Omeprazole 40 mg PO DAILY 05/21/20 Salmeterol/Fluticasone [Advair 500Mcg/50Mcg -] 1 inh IH BID 05/21/20 predniSONE [Deltasone -] See Taper PO DAILY 10 Days #53 tablet 05/21/20 This patient is new to me today: No Emergency Visit: No Critical Care patient: No - Discharge Referral Referred to [facility] No ATTENDING PHYSICIAN STATEMENT I saw and evaluated the patient. I reviewed the resident's note and discussed the case with the resident. I agree with the resident's findings and plan as documented. SUBJECTIVE: OBJECTIVE: ASSESSMENT AND PLAN:
--- NOTE | 2020-05-21 17:28 | PN ---
Teaching Attending Note Name of Resident: Sherif Teixeira ATTENDING PHYSICIAN STATEMENT I saw and evaluated the patient. I reviewed the resident's note and discussed the case with the resident. I agree with the resident's findings and plan as documented. SUBJECTIVE: Seen around noon. no fever or chills. No REA . she reports chest tightness but no actual pain, tightness is worse with cough and is located over the whole precordium in general she feels much better. OBJECTIVE: NAD ,awake, alert, cooperative , comfortable and speaks in full sentences . No tachypnia CV: RRR, 2/6 SM at RUSB TTP over L and R chest wall and in sternal area Lungs: good air entry, no wheezing Ext: No edema or erythema . fungal infection in 1st interdigital web in both feet . no erythema on feet . no tenderness Abd: soft, NT, Nd. ASSESSMENT AND PLAN: 49 y/o lady with h/o Asthma , palpitations, seasonal allergies, and anemia who presented with SOb and chest tightness. she was diagnosed with Asthma exacerbation 1- Asthma exacerbation . mild. lung exam as above. no distress. sx improved - cont prednsione taper at hoem - cont advair cont Ventolin - No need for flonase . she will be called ( left already) 2- Chest tightness.likely due to asthma. chest tenderness with palpation makes ACS less likely. EKG changes on EKG , did not change on repeat EKG ( third EKG done today) - f/u with card for out pt stress test 3- Tinea pedis : prescribe topical antifungal. pt left already, but will be called by team to infom her dispo : Home
[2020-05-21] MEDS ORDERED: predniSONE 20 MG TABLET (UD) PO SCH (18:00)
== END 2020-05-21 17:20 | disposition home or self-care (01) | DRG 203 ==
LOC: JER 09:59 → SUPCPDRO 09:59 → JERBED 12:55 → OBSVTOIN 16:23 → J4W 21:24
PROVIDERS: ATTEND Internal Medicine
DX: J45.41 Moderate persistent asthma with (acute) exacerbation (principal); R94.31 Abnormal electrocardiogram [ECG] [EKG]; R07.89 Other chest pain; B35.3 Tinea pedis; E66.9 Obesity, unspecified; Z68.36 Body mass index [BMI] 36.0-36.9, adult; D64.9 Anemia, unspecified; Z96.652 Presence of left artificial knee joint; R00.2 Palpitations
CPT/HCPCS: 36415; 71045-TC-FY; 80053; 82550; 82962; 83690; 83735; 83880; 84100; 84436; 84439; 84443; 84484; 84703; 85025; 93005; 93010; 93306-TC; 99285-25; G0378; U0003

== ENCOUNTER 2020-06-01 10:32 | Emergency (ER) | payer MEDICARE, OTHER ==
[2020-06-01 10:39] VITALS: TEMP 98.4; BMI 36.6
--- OUTSIDE RECORDS SUMMARY | 2020-06-01 11:07 | XMS ---
:1970 Author Organization [facility] Care Team Providers Name Role Phone Lavelledar Judah Sood Unavailable Barrie Laureano Unavailable Barrie Laureano Unavailable Barrie Laureano Unavailable Barrie Laureano Unavailable Barrie Laureano Unavailable Barrie Laureano Unavailable Sridevi, Barrie Unavailable Sridevi, Barrie Unavailable Barrie Laureano Unavailable Re-disclosure Warning The records that you are about to access may contain information from federally- assisted alcohol or drug abuse programs. If such information is present, then the following federally mandated warning applies: This information has been disclosed to you from records protected by federal confidentiality rules (42 CFR part 2). The federal rules prohibit you from making any further disclosure of this information unless further disclosure is expressly permitted by the written consent of the person to whom it pertains or as otherwise permitted by 42 CFR part 2. A general authorization for the release of medical or other information is NOT sufficient for this purpose. The Federal rules restrict any use of the information to criminally investigate or prosecute any alcohol or drug abuse patient.The records that you are about to access may contain highly sensitive health information, the redisclosure of which is protected by Article 27-F of the [facility] Public Health law. If you continue you may haveaccess to information: Regarding HIV / AIDS; Provided by facilities licensed or operated by the [facility] Office of Mental Health; or Provided by the [facility] Office for People With Developmental Disabilities. If such information is present, then the following [facility] mandated warning applies: This information has been disclosed to you from confidential records which are protected by state law. State law prohibits you from making any further disclosure of this information without the specific written consent of the person to whom it pertains, or as otherwise permitted by law. Any unauthorized further disclosure in violation of state law may result in a fine or senior living sentence or both. A general authorization for the release of medical or other information is NOT sufficient authorization for further disclosure. Allergies and Adverse Reactions Type Description Substance Reaction Status Data Source(s ) No Known Allergies No Known Allergies No Known Allergies eCW3 ([facility]) No Known Allergies No Known Allergies No Known Allergies eCW3 ([facility]) No Known Allergies No Known Allergies No Known Allergies eCW3 ([facility]) No Known Allergies No Known Allergies No Known Allergies eCW3 ([facility]) No Known Allergies No Known Allergies No Known Allergies eCW3 ([facility]) No Known Allergies No Known Allergies No Known Allergies eCW3 ([facility]) No Known Allergies No Known Allergies No Known Allergies eCW3 ([facility]) No Known Allergies No Known Allergies No Known Allergies eCW3 ([facility]) No Known Allergies No Known Allergies No Known Allergies eCW3 ([facility]) No Known Allergies No Known Allergies No Known Allergies eCW3 ([facility]) No Known Allergies No Known Allergies No Known Allergies eCW3 ([facility]) No Known Allergies No Known Allergies No Known Allergies eCW3 ([facility]) No Known Allergies No Known Allergies No Known Allergies eCW3 ([facility]) No Known Allergies No Known Allergies No Known Allergies eCW3 ([facility]) No Information No Information No Information eC W2 ([facility]) No Information No Information No Information eC W2 ([facility]) No Information No Information No Information eC W2 ([facility]) No Information No Information No Information eC W2 ([facility]) No Known Allergies No Known Allergies No Known Allergies eCW2 ([facility]) No Known Allergies No Known Allergies No Known Allergies eCW2 ([facility]) No Known Allergies No Known Allergies No known allergies eCW3 ([facility]) Encounters Encounter Providers Location Date Indications Data Source(s ) Attender: Judah 03/14/2020 [facility] ( [facility] 12:00:00 AM EDT Medical, ) Office Attender: Judah Laureano 03/14/2020 12:00:00 AM EDT [facility] [place] [place] Attender: Judah Laureano 03/14/2020 12:00:00 AM EDT [facility] [place] [place] Office [facility] 06/21/2019 12:00:00 eCW3 ([facility] A28 AM EDT - 06/21/2019 [facility] 12:00:00 AM EDT Care) Outpatient [facility] 05/29/2019 12:00:00 eCW3 ([facility] A28 AM EDT - 05/29/2019 [facility] 12:00:00 AM EDT Care) Outpatient [facility] 05/18/2019 12:00:00 eCW3 ([facility] A28 AM EDT - 05/18/2019 [facility] 12:00:00 AM EDT Care) Outpatient [facility] 04/25/2019 12:00:00 eCW3 ([facility] A28 AM EDT - 04/25/2019 [facility] 12:00:00 AM EDT Care) Outpatient [facility] 03/20/2019 12:00:00 eCW3 ([facility] A28 AM EDT - 03/20/2019 [facility] 12:00:00 AM EDT Care) Outpatient [facility] 02/27/2019 12:00:00 eCW3 ([facility] A28 AM EDT - 02/27/2019 [facility] 12:00:00 AM EDT Care) Outpatient [facility] 02/01/2019 12:00:00 eCW3 ([facility] A28 AM EDT - 02/01/2019 [facility] 12:00:00 AM EDT Care) Outpatient [facility] 01/24/2019 12:00:00 eCW3 ([facility] A28 AM EDT - 01/24/2019 [facility] 12:00:00 AM EDT Care) Outpatient [facility] 01/10/2019 12:00:00 eCW3 ([facility] A28 AM EDT - 01/10/2019 [facility] 12:00:00 AM EDT Care) Outpatient [facility] 01/09/2019 12:00:00 eCW3 ([facility] A28 AM EDT - 01/09/2019 [facility] 12:00:00 AM EDT Care) Outpatient [facility] 01/03/2019 12:00:00 eCW3 ([facility] A28 AM EDT - 01/03/2019 [facility] 12:00:00 AM EDT Care) Outpatient [facility] 12/19/2018 12:00:00 eCW3 ([facility] A28 AM EDT - 12/19/2018 [facility] 12:00:00 AM EDT Care) Outpatient [facility] 12/07/2018 12:00:00 eCW3 ([facility] A28 AM EDT - 12/07/2018 [facility] 12:00:00 AM EDT Care) Outpatient [facility] 11/22/2018 12:00:00 eCW3 ([facility] A28 AM EDT - 11/22/2018 [facility] 12:00:00 AM EDT Care) Outpatient [facility] 11/01/2018 12:00:00 eCW3 ([facility] A28 AM EST - 11/01/2018 [facility] 12:00:00 AM EST Care) [facility] Bhargav Holman 09/21/2018 12:00: 00 eCW2 ([facility] AM EST [facility] [place] Cal[place] 09/16/2018 12:00: 00 eCW2 ([facility] AM EST [facility]) [place] Calabresenahed Hol[place] 09/08/2018 12:00: 00 eCW2 ([facility] AM EST [facility]) [facility] Lisakayden Holman 09/01/2018 12:00:0 0 eCW2 ([facility] AM EST [facility]) [facility] Lisakayden Holman 08/31/2018 12:00: 00 eCW2 ([facility] AM EST [facility]) [place] Perezkayden Holman 08/29/2018 12:00: 00 eCW2 ([facility] AM EST [facility]) [place] Perezkayden Hol[facility] 08/24/2018 12:00: 00 eCW2 ([facility] AM EST [facility]) [place] Perezkayden Holman 08/05/2018 12:00: 00 eCW2 ([facility] AM EST [facility]) [place] Perezkayden Holman 08/01/2018 12:00: 00 eCW2 ([facility] AM EST [facility]) [place] Perezkayden Holman 07/25/2018 12:00: 00 eCW2 ([facility] AM EST [facility]) [place] Perezkayden Holman 07/18/2018 12:00: 00 eCW2 ([facility] AM EST [facility]) [place] Perezkayden [facility] 07/11/2018 12:00: 00 eCW2 ([facility] AM EST [facility]) [place] Perezkayden Holman 07/05/2018 12:00: 00 eCW2 ([facility] AM EDT [facility]) [place] Perezkayden Holman 07/05/2018 12:00: 00 eCW2 ([facility] AM EDT [facility]) [place] Perezkayden Holman 06/28/2018 12:00: 00 eCW2 ([facility] AM EDT [facility]) [place] Perezkayden Holman 06/27/2018 12:00: 00 eCW2 ([facility] AM EDT [facility]) [place] Perezkayden Holman 06/22/2018 12:00: 00 eCW2 ([facility] AM EDT [facility]) [place] Perezkayden Holman 06/18/2018 12:00: 00 eCW2 ([facility] AM EDT [facility]) [place] Perezkayden Holman 06/16/2018 12:00: 00 eCW2 ([facility] AM EDT [facility]) [place] Perezkayden Holman 06/14/2018 12:00: 00 eCW2 ([facility] AM EDT [facility]) [place] Perez[place]den [facility] 06/09/2018 12:00: 00 eCW2 ([facility] AM EDT [facility]) [place] Perezkayden Holman 06/09/2018 12:00: 00 eCW2 ([facility] AM EDT [facility]) [place] Lisa Holman 06/08/2018 12:00: 00 eCW2 ([facility] AM EDT [facility]) [place] Perezkayden Holman 06/08/2018 12:00: 00 eCW2 ([facility] AM EDT [facility]) [place] Lisa Jonesabailya 06/08/2018 12:00: 00 eCW2 ([facility] AM EDT [facility]) [place] Ozun[place]ers Lisa Holman 06/02/2018 12:00: 00 eCW2 ([facility] AM EDT [facility]) [place] Calabresenahed Jonesabailya 05/26/2018 12:00: 00 eCW2 ([facility] AM EDT [facility]) [place] Jonesabailya 05/16/2018 12:00: 00 eCW2 ([facility] AM EDT [facility]) [place] Perezkayden Holman 04/28/2018 12:00: 00 eCW2 ([facility] AM EDT [facility]) [place] Perezkayden Jonesabailya 04/21/2018 12:00: 00 eCW2 ([facility] AM EDT [facility]) [place] Perezkayden Holman 04/18/2018 12:00: 00 eCW2 ([facility] AM EDT [facility]) [place] Perezkayden Holman 04/18/2018 12:00: 00 eCW2 ([facility] AM EDT [facility]) [place] Perezkayden Jonesabailya 04/14/2018 12:00: 00 eCW2 ([facility] AM EDT [facility]) [place] Perezkayden Jonesabailya 04/14/2018 12:00: 00 eCW2 ([facility] AM EDT [facility]) [place] Perezkayden Jonesabailya 04/13/2018 12:00: 00 eCW2 ([facility] AM EDT [facility]) [place] Perezkayden Jonesabailya 04/04/2018 12:00: 00 eCW2 ([facility] AM EDT [facility]) [place] Lisa Jonesabailya 03/23/2018 12:00: 00 eCW2 ([facility] AM EDT [facility]) [facility] [place] Lisa Jonesabailya 03/21/2018 12: 00:00 eCW2 ([facility] AM EDT [facility]) [place] Ozun[place] Lisa Jonesabailya 03/15/2018 12:00: 00 eCW2 ([facility] AM EDT [facility]) [place] Jonesabailya 03/07/2018 12:00: 00 eCW2 ([facility] AM EDT [facility]) [place] Calabresen Karenabartaj 03/07/2018 12:00: 00 eCW2 ([facility] AM EDT [facility]) [place] Calabresen Karenabailya 03/03/2018 12:00: 00 eCW2 ([facility] AM EDT [facility]) [facility] Lisa Karenabartaj 03/01/2018 12:0 0:00 eCW2 ([facility] AM EDT [facility]) [place] Calabresenahed Jonesabailya 03/01/2018 12:00: 00 eCW2 ([facility] AM EDT [facility]) [place] Calabresenahed Jonesabailya 02/28/2018 12:00: 00 eCW2 ([facility] AM EDT [facility]) [place] Calabresenahed Jonesabailya 02/22/2018 12:00: 00 eCW2 ([facility] AM EDT [facility]) [place] Calabresenahed Jonesabailya 01/27/2018 12:00: 00 eCW2 ([facility] AM EDT [facility]) [place] Calabresenahed Jonesabailya 12/23/2017 12:00: 00 eCW2 ([facility] AM EDT [facility]) [place] Perezkayden Jonesabailya 12/20/2017 12:00: 00 eCW2 ([facility] AM EDT [facility]) [place] Perezkayden Jonesabailya 12/16/2017 12:00: 00 eCW2 ([facility] AM EDT [facility]) [place] Perezkayden Jonesabailya 12/06/2017 12:00: 00 eCW2 ([facility] AM EDT [facility]) [place] Calabresenahed Holman 12/02/2017 12:00: 00 eCW2 ([facility] AM EDT [facility]) [place] Calabresenahed Holman 11/12/2017 12:00: 00 eCW2 ([facility] AM EST [facility]) [place] Perezkayden Holman 11/03/2017 12:00: 00 eCW2 ([facility] AM EST [facility]) [place] Perezkayden Holman 10/29/2017 12:00: 00 eCW2 ([facility] AM EST [facility]) [place] Calabresenahed Holman 10/28/2017 12:00: 00 eCW2 ([facility] AM EST [facility]) [place] Perezkayden Holman 10/27/2017 12:00: 00 eCW2 ([facility] AM EST [facility]) [place] Perezkayden Holman 10/26/2017 12:00: 00 eCW2 ([facility] AM EST [facility]) [place] Perezkayden Holman 10/12/2017 12:00: 00 eCW2 ([facility] AM EST [facility]) [place] Perezkayden Holman 10/05/2017 12:00: 00 eCW2 ([facility] AM EST [facility]) [place] Perezkayden Holman 10/01/2017 12:00: 00 eCW2 ([facility] AM EST [facility]) [place] Oz[place] Lisa Holman 09/29/2017 12:00: 00 eCW2 ([facility] AM EST [facility]) [place] Lisa Holman 09/14/2017 12:00: 00 eCW2 ([facility] AM EST [facility]) [place] Lisa Holman 09/13/2017 12:00: 00 eCW2 ([facility] AM EST [facility]) [facility] [place] Lisa Holman 09/08/2017 12: 00:00 eCW2 ([facility] AM EST [facility]) [place] Lisa Holman 08/27/2017 12:00: 00 eCW2 ([facility] AM EST [facility]) [place] Lisa Holman 08/18/2017 12:00: 00 eCW2 ([facility] AM EST [facility]) [place] Lisa Holman 08/05/2017 12:00: 00 eCW2 ([facility] AM EST [facility]) [place] Lisa Holman 08/02/2017 12:00: 00 eCW2 ([facility] AM EST [facility]) [place] Lisa Holman 07/31/2017 12:00: 00 eCW2 ([facility] AM EST [facility]) [place] Lisa Holman 07/16/2017 12:00: 00 eCW2 ([facility] AM EST [facility]) [place] Lisa Holman 07/14/2017 12:00: 00 eCW2 ([facility] AM EST [facility]) [place] Lisa Holman 06/22/2017 12:00: 00 eCW2 ([facility] AM EDT [facility]) [place] Lisa Holman 06/18/2017 12:00: 00 eCW2 ([facility] AM EDT [facility]) [place] Lisa Holman 06/16/2017 12:00: 00 eCW2 ([facility] AM EDT [facility]) [place] Oz[place] Lisa Holman 06/15/2017 12:00: 00 eCW2 ([facility] AM EDT [facility]) [place] Lisa Holman 06/07/2017 12:00: 00 eCW2 ([facility] AM EDT [facility]) [place] Calabresenahed Jonesabailya 05/24/2017 12:00: 00 eCW2 ([facility] AM EDT [facility]) [place] Perezkayden Jonesabailya 05/12/2017 12:00: 00 eCW2 ([facility] AM EDT [facility]) [place] Perezkayden Holman 05/07/2017 12:00: 00 eCW2 ([facility] AM EDT [facility]) [place] Perezkayden Holman 05/05/2017 12:00: 00 eCW2 ([facility] AM EDT [facility]) [place] Perezkayden Jonesabailya 04/14/2017 12:00: 00 eCW2 ([facility] AM EDT [facility]) [facility] Lisanahed Holman 04/14/2017 12:0 0:00 eCW2 ([facility] AM EDT [facility]) [place] Calabresenahed Jonesabailya 04/09/2017 12:00: 00 eCW2 ([facility] AM EDT [facility]) [place] Perezkayden Jonesabailya 04/05/2017 12:00: 00 eCW2 ([facility] AM EDT [facility]) [place] Perezkayden Jonesabailya 03/04/2017 12:00: 00 eCW2 ([facility] AM EDT [facility]) [place] Perezkayden Jonesabailya 03/01/2017 12:00: 00 eCW2 ([facility] AM EDT [facility]) [place] Ozunanchaitanya Perezkayden Jonesabailya 02/26/2017 12:00: 00 eCW2 ([facility] AM EDT [facility]) [place] Lisa Jonesabailya 02/15/2017 12:00: 00 eCW2 ([facility] AM EDT [facility]) [place] Perezkayden Jonesabailya 01/28/2017 12:00: 00 eCW2 ([facility] AM EDT [facility]) [place] Calabresenahed Holman 01/26/2017 12:00: 00 eCW2 ([facility] AM EDT [facility]) [place] Perezkayden Holman 01/26/2017 12:00: 00 eCW2 ([facility] AM EDT [facility]) [place] Perezkayden Holman 01/13/2017 12:00: 00 eCW2 ([facility] AM EDT [facility]) [place] Perezkayden Holman 01/01/2017 12:00: 00 eCW2 ([facility] AM EDT [facility]) [place] Perezkayden Holman 12/30/2016 12:00: 00 eCW2 ([facility] AM EDT [facility]) [place] Perezkayden Holman 12/21/2016 12:00: 00 eCW2 ([facility] AM EDT [facility]) [place] Perezkayden Holman 12/18/2016 12:00: 00 eCW2 ([facility] AM EDT [facility]) [place] Perezkayden Holman 12/14/2016 12:00: 00 eCW2 ([facility] AM EDT [facility]) [place] Perezkayden Jonesabailya 12/14/2016 12:00: 00 eCW2 ([facility] AM EDT [facility]) [place] Dur[place] Lisa Jonesabailya 12/07/2016 12:00: 00 eCW2 ([facility] AM EDT [facility]) [place] Oz[place]ers Lisa Jonesabailya 11/30/2016 12:00: 00 eCW2 ([facility] AM EDT [facility]) [place] Lisa Holman 11/26/2016 12:00: 00 eCW2 ([facility] AM EDT [facility]) [place] Calabresenahed Holman 11/13/2016 12:00: 00 eCW2 ([facility] AM EST [facility]) [place] Calabresenahed Holman 11/10/2016 12:00: 00 eCW2 ([facility] AM EST [facility]) [place] Perezkayden Holman 10/29/2016 12:00: 00 eCW2 ([facility] AM EST [facility]) [place] Perezkayden Holman 10/22/2016 12:00: 00 eCW2 ([facility] AM EST [facility]) [place] Calabresenahed Holman 10/15/2016 12:00: 00 eCW2 ([facility] AM EST [facility]) [place] Perezkayden Holman 10/13/2016 12:00: 00 eCW2 ([facility] AM EST [facility]) [place] Calabresenahed Holman 10/13/2016 12:00: 00 eCW2 ([facility] AM EST [facility]) [place] Calabresenahed Holman 10/05/2016 12:00: 00 eCW2 ([facility] AM EST [facility]) [place] Perezkayden Holman 09/24/2016 12:00: 00 eCW2 ([facility] AM EST [facility]) [place] Perezkayden Holman 09/22/2016 12:00: 00 eCW2 ([facility] AM EST [facility]) [place] Lisa Holman 09/16/2016 12:00: 00 eCW2 ([facility] AM EST [facility]) [place] Oz[place] Lisa Holman 09/09/2016 12:00: 00 eCW2 ([facility] AM EST [facility]) [place] Calabresenahed Jonesdonellilya 08/27/2016 12:00: 00 eCW2 ([facility] AM EST [facility]) [place] Calabresenahed Holman 08/21/2016 12:00: 00 eCW2 ([facility] AM EST [facility]) [place] Calabresenahed Holman 08/13/2016 12:00: 00 eCW2 ([facility] AM EST [facility]) [place] Calabresenahed Holman 08/05/2016 12:00: 00 eCW2 ([facility] AM EST [facility]) [place] Calabresenahed Holman 07/29/2016 12:00: 00 eCW2 ([facility] AM EST [facility]) [place] Calabresenahed Holman 07/23/2016 12:00: 00 eCW2 ([facility] AM EST [facility]) [place] Perezkayden Holman 07/17/2016 12:00: 00 eCW2 ([facility] AM EST [facility]) [place] Calabresenahed Holman 07/15/2016 12:00: 00 eCW2 ([facility] AM EST [facility]) [place] Calabresenahed Holman 07/03/2016 12:00: 00 eCW2 ([facility] AM EDT [facility]) [place] Perezkayden Holman 06/30/2016 12:00: 00 eCW2 ([facility] AM EDT [facility]) [place] Perezkayden Holman 06/18/2016 12:00: 00 eCW2 ([facility] AM EDT [facility]) [place] Perezkayden Holman 06/16/2016 12:00: 00 eCW2 ([facility] AM EDT [facility]) [place] Perezkayden Holman 06/09/2016 12:00: 00 eCW2 ([facility] AM EDT [facility]) [place] Calabresenahed Jonesabailya 06/01/2016 12:00: 00 eCW2 ([facility] AM EDT [facility]) [place] Calabresenahed Jonseabailya 05/20/2016 12:00: 00 eCW2 ([facility] AM EDT [facility]) [place] Perezkayden Jonesabailya 05/19/2016 12:00: 00 eCW2 ([facility] AM EDT [facility]) [place] Calabresenahed Jonesabailya 04/30/2016 12:00: 00 eCW2 ([facility] AM EDT [facility]) [place] Perezkayden Jonesabailya 04/10/2016 12:00: 00 eCW2 ([facility] AM EDT [facility]) [place] Perezkayden Jonesabailya 04/07/2016 12:00: 00 eCW2 ([facility] AM EDT [facility]) [place] Perezkayden Jonesabailya 04/02/2016 12:00: 00 eCW2 ([facility] AM EDT [facility]) [place] Perezkayden Jonesabailya 04/02/2016 12:00: 00 eCW2 ([facility] AM EDT [facility]) [place] Perezkayden Jonesabailya 03/11/2016 12:00: 00 eCW2 ([facility] AM EDT [facility] [facility] [place] Perezkayden Jonesabailya 03/10/2016 12:00: 00 eCW2 ([facility] [place] Perezkayden Jonesabailya 02/24/2016 12:00: 00 eCW2 ([facility] [place] Ozunanchaitanya Perezkayden Jonesabartaj 02/21/2016 12:00: 00 eCW2 ([facility] [place] Perezkayden Jonesabailya 02/21/2016 12:00: 00 eCW2 ([facility]) [place] Calabresenahed Holman 02/10/2016 12:00: 00 eCW2 ([facility] [place] Calabresenahed Holman 01/13/2016 12:00: 00 eCW2 ([facility] [place] Calabresenahed Holman 01/10/2016 12:00: 00 eCW2 ([facility] [place] Calabresenahed Holman 01/09/2016 12:00: 00 eCW2 ([facility] [place] Calabresenahed Holman 01/03/2016 12:00: 00 eCW2 ([facility] [place] Calabresenahed Holman 12/31/2015 12:00: 00 eCW2 ([facility] [place] Calabresenahed Holman 12/27/2015 12:00: 00 eCW2 ([facility] [place] Calabresenahed Hloman 12/13/2015 12:00: 00 eCW2 ([facility] [place] Perezkayden Holman 12/09/2015 12:00: 00 eCW2 ([facility] [place] Perezkayden Jonesabailya 11/28/2015 12:00: 00 eCW2 ([facility] [place] Perezkayden Jonesabailya 10/31/2015 12:00: 00 eCW2 ([facility] [place] Ozunankers Lisa Holman 10/30/2015 12:00: 00 eCW2 ([facility] [place] Calabresenahed Holman 10/30/2015 12:00: 00 eCW2 ([facility] [place] Calabresenahed Holman 10/28/2015 12:00: 00 eCW2 ([facility]) [place] Perezkayden Holman 10/08/2015 12:00: 00 eCW2 ([facility] [place] Perezkayden Holman 09/27/2015 12:00: 00 eCW2 ([facility] [place] Calabresenahed Holman 09/18/2015 12:00: 00 eCW2 ([facility] [place] Perezkayden Holman 09/17/2015 12:00: 00 eCW2 ([facility] [place] Perezkayden Holman 09/04/2015 12:00: 00 eCW2 ([facility] [place] Perezkayden Holman 08/15/2015 12:00: 00 eCW2 ([facility] [place] Perezkayden Holman 08/05/2015 12:00: 00 eCW2 ([facility] [place] Perezkayden Holman 07/23/2015 12:00: 00 eCW2 ([facility] [place] Dur[place] Lisa Holman 07/23/2015 12:00: 00 eCW2 ([facility] [place] Durant Lisa Holman 07/15/2015 12:00: 00 eCW2 ([facility] [place] Ozunankers Lisa Holman 07/10/2015 12:00: 00 eCW2 ([facility]) [place] Perezkayden Holman 07/08/2015 12:00: 00 eCW2 ([facility]) [place] Perezkayden Holman 07/04/2015 12:00: 00 eCW2 ([facility]) [place] Perezkayden Holman 06/21/2015 12:00: 00 eCW2 ([facility]) [place] Perezkayden Holman 06/20/2015 12:00: 00 eCW2 ([facility]) [place] Perezkayden Holman 06/19/2015 12:00: 00 eCW2 ([facility]) Verona Perezkayden Holman 06/18/2015 12:00: 00 eCW2 ([facility]) [place] Perezkayden Holman 06/10/2015 12:00: 00 eCW2 ([facility]) [place] Perezkayden Holman 05/31/2015 12:00: 00 eCW2 ([facility]) [place] Ozunankers Lisa Holman 05/27/2015 12:00: 00 eCW2 ([facility]) [place] Perezkayden Holman 05/27/2015 12:00: 00 eCW2 ([facility]) [place] Ozunankers Lisa Holman 04/09/2015 12:00: 00 eCW2 ([facility]) [place] Ozunankers Lisa Jonesabailya 03/26/2015 12:00: 00 eCW2 ([facility]) [place] Ozunankers Lisa Nguyenger 03/19/2015 12:00: 00 eCW2 ([facility]) [place] Calabresenahed Holman 03/15/2015 12:00: 00 eCW2 ([facility]) [place] Perezkayden Holman 03/11/2015 12:00: 00 eCW2 ([facility] [place] Perezkayden Holman 02/27/2015 12:00: 00 eCW2 ([facility]) [place] Calabresenahed Holman 02/25/2015 12:00: 00 eCW2 ([facility] [place] Perezkayden Holman 02/05/2015 12:00: 00 eCW2 ([facility] [place] Perezkayden Holman 01/23/2015 12:00: 00 eCW2 ([facility] [place] Perezkayden Holman 01/08/2015 12:00: 00 eCW2 ([facility] [place] Perezkayden Holman 01/07/2015 12:00: 00 eCW2 ([facility] [place] Perezkayden Holman 12/27/2014 12:00: 00 eCW2 ([facility] [place] Perezkayden Holman 12/20/2014 12:00: 00 eCW2 ([facility] [place] Lisa Jonesabailya 12/18/2014 12: 00:00 eCW2 ([facility] [place] Ozunankers Lisa Holman 12/13/2014 12:00: 00 eCW2 ([facility]) [place] Perezkayden Holman 11/20/2014 12:00: 00 eCW2 [facility] 12: 00:00 eCW2 ([facility]) Ver[place] Perezkayden Holman 11/19/2014 12:00: 00 eCW2 ([facility]) [place] Perezkayden Holman 10/25/2014 12:00: 00 eCW2 ([facility]) [place] Perezkayden Holman 10/17/2014 12:00: 00 eCW2 ([facility]) [place] Ozunankers Lisa Holman 08/31/2014 12:00: 00 eCW2 ([facility] [place] Perezkayden Holman 08/20/2014 12:00: 00 eCW2 ([facility] [place] Durant Lisa Holman 08/08/2014 12:00: 00 eCW2 ([facility] [place] Ozunankers Lisa Holman 07/30/2014 12:00: 00 eCW2 ([facility] [place] Durant Lisa Holman 07/28/2014 12:00: 00 eCW2 ([facility] [place] Ozunankers Lisa Holman 07/23/2014 12:00: 00 eCW2 ([facility] [place] Ozunankers Lisa Holman 07/20/2014 12:00: 00 eCW2 ([facility] [place] Ozunankers Lisa Holman 07/02/2014 12:00: 00 eCW2 ([facility]) [place] Calabresenahed Holman 06/14/2014 12:00: 00 eCW2 ([facility] [place] Perezkayden Holman 06/06/2014 12:00: 00 eCW2 ([facility] [place] Perezkayden Holman 04/19/2014 12:00: 00 eCW2 ([facility] [place] Perezkayden Holman 04/18/2014 12:00: 00 eCW2 ([facility]) [place] Durant Lisa Holman 04/16/2014 12:00: 00 eCW2 ([facility]) [place] Ozunankers Lisa Holman 04/12/2014 12:00: 00 eCW2 ([facility] [place] Lisa Holman 03/27/2014 12: 00:00 eCW2 ([facility]) [place] Perezkayden Holman 03/19/2014 12:00: 00 eCW2 ([facility]) [place] Durant Lisa Holman 03/13/2014 12:00: 00 eCW2 ([facility]) [place] Ozunankers Lisa Jonesabailya 03/13/2014 12:00: 00 eCW2 ([facility]) [place] Ozunankers Lisa Holman 03/05/2014 12:00: 00 eCW2 ([facility]) [place] Ozunankers Lisa Holman 02/13/2014 12:00: 00 eCW2 ([facility]) [place] Perezkayden Holman 02/05/2014 12:00: 00 eCW2 ([facility]) [place] Perezkayden Holman 01/23/2014 12:00: 00 eCW2 ([facility]) [place] Perezkayden Holman 12/26/2013 12:00: 00 eCW2 ([facility]) Ver[place] Perezkayden Holman 12/15/2013 12:00: 00 eCW2 ([facility]) [place] Perezkayden Holman 12/15/2013 12:00: 00 eCW2 ([facility]) [place] Perezkayden Holman 12/14/2013 12:00: 00 eCW2 ([facility]) [place] Perezkayden Holman 11/02/2013 12:00: 00 eCW2 ([facility]) [place] Perezkayden Holman 09/18/2013 12:00: 00 eCW2 ([facility]) [place] Perezkayden Holman 09/18/2013 12:00: 00 eCW2 ([facility]) [place] Perezkayden Holman 08/28/2013 12:00: 00 eCW2 ([facility]) [place] Ozunankers Lisa Holman 08/22/2013 12:00: 00 eCW2 ([facility]) [place] Durant Lisa Holman 08/21/2013 12:00: 00 eCW2 ([facility]) [place] Ozunankers Lisa Holman 08/07/2013 12:00: 00 eCW2 ([facility]) [place] Calabresen Noahilya 07/24/2013 12:00: 00 eCW2 ([facility]) [place] Calabresen Noahilya 07/20/2013 12:00: 00 eCW2 ([facility]) [place] Perezlyn Noahilya 06/22/2013 12:00: 00 eCW2 ([facility]) [place] Calabresenahed Jonesdonellilya 06/21/2013 12:00: 00 eCW2 ([facility]) [place] Calabresenahed Holman 06/15/2013 12:00: 00 eCW2 ([facility]) [place] Perezkayden Holman 06/08/2013 12:00: 00 eCW2 ([facility]) [place] Calabresen Noahilya 06/08/2013 12:00: 00 eCW2 ([facility]) [place] Calabresenahed Jonesdonellilya 05/22/2013 12:00: 00 eCW2 ([facility]) [place] Perezkayden Holman 05/18/2013 12:00: 00 eCW2 ([facility]) [place] Calabresenahed Jonesdonellilya 04/29/2013 12:00: 00 eCW2 ([facility]) [place] Perezkayden Holman 04/28/2013 12:00: 00 eCW2 ([facility]) [place] Perezkayden Holman 04/27/2013 12:00: 00 eCW2 ([facility]) [place] Zamorailya 04/25/2013 12:00: 00 eCW2 ([facility]) [place] Calabresen Noahilya 02/23/2013 12:00: 00 eCW2 ([facility]) [place] Calabresen Noahilya 01/17/2013 12:00: 00 eCW2 ([facility]) [place] Calabresen Noahilya 01/13/2013 12:00: 00 eCW2 ([facility]) [place] Calabresen Noahilya 12/26/2012 12:00: 00 eCW2 ([facility]) [place] Calabresenahed Jonesdonellilya 12/16/2012 12:00: 00 eCW2 ([facility]) [place] Calabresenahed Jonesdonellilya 12/14/2012 12:00: 00 eCW2 ([facility]) [place] Calabresenahed Jonesdonellilya 12/05/2012 12:00: 00 eCW2 ([facility]) [place] Calabresenahed Jonesdonellilya 10/31/2012 12:00: 00 eCW2 ([facility]) [place] Calabresenahed Holman 10/21/2012 12:00: 00 eCW2 ([facility]) [place] Perezkayden Holman 10/18/2012 12:00: 00 eCW2 ([facility]) [place] Perezkayden Holman 10/17/2012 12:00: 00 eCW2 ([facility]) [place] Perezkayden Holman 10/13/2012 12:00: 00 eCW2 ([facility]) Ver[place] Perezkayden Holman 09/19/2012 12:00: 00 eCW2 ([facility]) Verona Perezkayden Holman 09/15/2012 12:00: 00 eCW2 ([facility]) Ver[place] Ozunankers Lisa Holman 09/05/2012 12:00: 00 eCW2 ([facility]) Ver[place] Perezkayden Holman 08/15/2012 12:00: 00 eCW2 ([facility]) [place] Dur[place] Lisa Holman 08/05/2012 12:00: 00 eCW2 ([facility]) [place] Ozunankers Lisa Holman 07/25/2012 12:00: 00 eCW2 ([facility]) [place] Durant Lisa Holman 06/27/2012 12:00: 00 eCW2 ([facility]) [place] Dur[place] Lisa Holman 05/27/2012 12:00: 00 eCW2 ([facility]) [place] Ozunankers Lisa Holman 05/20/2012 12:00: 00 eCW2 ([facility]) Verona Durant Lisa Holman 05/17/2012 12:00: 00 eCW2 ([facility]) Verona Ozunankers Lisa Holman 05/02/2012 12:00: 00 eCW2 ([facility]) Verona Ozunankers Lisa Holman 04/28/2012 12:00: 00 eCW2 ([facility]) Vreona Ozunankerjose Holman 04/05/2012 12:00: 00 eCW2 ([facility]) Verona Calabresenahed Holman 03/21/2012 12:00: 00 eCW2 ([facility]) Verona Perezkayden Holman 02/24/2012 12:00: 00 eCW2 ([facility]) [place] Perezkayden Holman 02/08/2012 12:00: 00 eCW2 ([facility]) Verona Perezkayden Holman 02/08/2012 12:00: 00 eCW2 ([facility] [place] Perez[place]den Holman 01/15/2012 12: 00:00 eCW2 ([facility]) [place] Perezkayden Holman 12/30/2011 12:00: 00 eCW2 ([facility]) [place] Perezkayden Holman 12/28/2011 12:00: 00 eCW2 ([facility]) [place] Perezkayden Holman 12/28/2011 12:00: 00 eCW2 ([facility]) [place] Perezkayden Holman 12/07/2011 12:00: 00 eCW2 ([facility]) [place] Ozunanchaitanya Perezkayden Jonesabailya 11/16/2011 12:00: 00 eCW2 ([facility]) [place] Ozunankers Lisa Holman 11/10/2011 12:00: 00 eCW2 ([facility]) [place] Lisa Holman 10/29/2011 12:00: 00 eCW2 ([facility]) Verona Perezkayden Holman 10/20/2011 12:00: 00 eCW2 ([facility]) Ver[place] Perezkayden Holman 10/19/2011 12:00: 00 eCW2 ([facility]) Ver[place] Durant Lisa Holman 09/28/2011 12:00: 00 eCW2 ([facility]) [place] Perezkayden Holman 09/17/2011 12:00: 00 eCW2 ([facility]) [place] Perezkayden Holman 09/01/2011 12:00: 00 eCW2 ([facility]) [place] Dur[place] Lisa Holman 08/27/2011 12:00: 00 eCW2 ([facility]) [place] Dur[place] Lisa Holman 08/17/2011 12:00: 00 eCW2 ([facility]) [place] Durant Lisa Holman 07/20/2011 12:00: 00 eCW2 ([facility]) [place] Durant Lisa Holman 07/13/2011 12:00: 00 eCW2 ([facility]) [place] Dur[place] Lisa Holman 06/22/2011 12:00: 00 eCW2 ([facility]) [place] Ozunankers Lisa Holman 05/18/2011 12:00: 00 eCW2 ([facility]) [place] Ozunankers Lisa Holman 04/27/2011 12:00: 00 eCW2 ([facility]) [place] Lisa Holman 02/11/2011 12:00: 00 eCW2 ([facility]) Verona Perezkayden Holman 02/10/2011 12:00: 00 eCW2 ([facility]) Verona Perezkayden Holman 01/12/2011 12:00: 00 eCW2 ([facility]) Verona Perezkayden Holman 12/02/2010 12:00: 00 eCW2 ([facility]) [place] Perezkayden Holman 10/14/2010 12:00: 00 eCW2 ([facility]) [place] Perezkayden Holman 09/11/2010 12:00: 00 eCW2 ([facility]) [place] Ozunankers Lisa Holman 2010 12:00: 00 eCW2 ([facility]) [place] Lisa Holman 08/11/2010 12:00: 00 eCW2 ([facility]) [place] Lisa Holman 07/21/2010 12:00: 00 eCW2 ([facility]) [place] Ozunankers Lisa Holman 07/09/2010 12:00: 00 eCW2 ([facility]) [place] Lisa Holman 06/24/2010 12:00: 00 eCW2 ([facility]) [place] Ozunankers Lisa Holman 06/19/2010 12:00: 00 eCW2 ([facility]) [place] Ozunankers Lisa Holman 06/10/2010 12:00: 00 eCW2 ([facility]) [place] Ozun[place] Lisa Holman 06/03/2010 12:00: 00 eCW2 ([facility]) Verona Calabresenahed Holman 04/22/2010 12:00: 00 eCW2 ([facility]) Verona Calabresenahed Holman 04/02/2010 12:00: 00 eCW2 ([facility]) Verona Calabresenahed Holman 03/24/2010 12:00: 00 eCW2 ([facility]) Verona Calabresenahed Holman 03/07/2010 12:00: 00 eCW2 ([facility]) Verona Perezkayden Holman 02/10/2010 12:00: 00 eCW2 ([facility]) Verona Perezkayden Holman 01/31/2010 12:00: 00 eCW2 ([facility]) [place] Perezkayden Holman 01/21/2010 12:00: 00 eCW2 ([facility]) Verona Perezkayden Holman 01/07/2010 12:00: 00 eCW2 ([facility]) Verona Perezkayden Holman 01/01/2010 12:00: 00 eCW2 ([facility]) Ver[place] Perezkayden Jonesabailya 12/24/2009 12:00: 00 eCW2 ([facility]) Ver[place] Perezkayden Jonesabailya 11/07/2009 12:00: 00 eCW2 ([facility]) Verona Ozunankers Lisa Holman 11/06/2009 12:00: 00 eCW2 ([facility] [place] Calabresenahed Holman 09/09/2009 12:00: 00 eCW2 ([facility]) [place] Calabresenahed Holman 08/22/2009 12:00: 00 eCW2 ([facility] Bhargav Perezkayden Holman 08/05/2009 12: 00:00 eCW2 ([facility] [place] Perezkayden Holman 07/08/2009 12:00: 00 eCW2 ([facility] Bhargav Perezkayden Holman 07/05/2009 12:00: 00 eCW2 ([facility] [place] Perezkayden Holman 06/28/2009 12:00: 00 eCW2 ([facility] Bhargav Perezkayden Holman 06/11/2009 12:00: 00 eCW2 ([facility] Bhargav Perezkayden Holman 06/06/2009 12:00: 00 eCW2 ([facility]) [employer] Lisa Holman 05/20/2009 12:00:00 eCW2 ([facility]) [place] Perezkayden Holman 04/19/2009 12:00: 00 eCW2 ([facility] [place] Perezkayden Holman 04/19/2009 12:00: 00 [facility]CW2 [facility] [facility] AM EDT [facility]) [facility] [place] Perezkayden Jonesabailya 04/08/2009 12:00: 00 eCW2 ([facility] AM EDT [facility]) [place] Ozunanchaitanya Perezkayden Holman 04/04/2009 12:00: 00 eCW2 ([facility] AM EDT [facility] [place] Zamorailya 04/02/2009 12:00: 00 eCW2 ([facility] AM EDT [facility]) [place]av[place] Jonesabailya 03/14/2009 12:00:00 eCW2 ([facility] AM EDT [facility] [place] Sahra Calabresen Noahilya 03/07/2009 12:00: 00 eCW2 ([facility] AM EDT [facility]) [facility] Bhargav Zamorailya 02/28/2009 12:00: 00 eCW2 ([facility] AM EDT [facility]) [facility] Bhargav Calabresen Noahilya 02/28/2009 12:00: 00 eCW2 ([facility] AM EDT [facility]) [place] Calabresen Noahilya 02/25/2009 12:00: 00 eCW2 ([facility] AM EDT [facility]) [facility] Bhargav Calabresen Noahilya 02/22/2009 12:00: 00 eCW2 ([facility] AM EDT [facility]) [facility] Bhargav Calabresen Noahilya 02/15/2009 12:00: 00 eCW2 ([facility] AM EDT [facility]) [facility] Bhargav Calabresen Noahilya 02/15/2009 12:00: 00 eCW2 ([facility] AM EDT [facility]) [facility] Bhargav Calabresen Noahilya 01/31/2009 12:00: 00 eCW2 ([facility] AM EDT [facility]) [facility] Bhargav Calabresen Noahilya 01/09/2009 12:00: 00 eCW2 ([facility] AM EDT [facility]) Immunizations Vaccine Date Status Description Data Source(s) New in 2011. IIV4 05/15/2020 completed eCW3 ([facility] 02:45:00 PM EDT Health Care) pneumococcal 08/04/2019 completed MEDGEN (Ayah 's polysaccharide PPV23 12:00:00 AM EST Medi zeenat, PC) New in 2011. IIV4 05/18/2019 completed eCW3 ([facility] 03:27:00 PM EDT Health Care) New in 2011. IIV4 05/18/2019 completed eCW3 ([facility] 03:27:00 PM EDT Health Care) New in 2011. IIV4 05/18/2019 completed eCW3 ([facility] [place] 03:27:00 PM EDT Health Care) New in 2011. IIV4 06/14/2018 completed eCW3 ([facility] [place] 03:49:00 PM EDT Health Care) New in 2011. IIV4 06/14/2018 completed eCW3 ([facility] [place] 03:49:00 PM EDT Health Care) New in 2011. IIV4 06/14/2018 completed eCW2 ([facility] 03:49:00 PM EDT Health Care) IIV3. This is one of two 06/18/2017 completed eCW 3 ([facility] [place] codes replacing CVX 15, 02:51:00 PM EDT H ealth Care) which is being retired. IIV3. This is one of two 06/18/2017 completed eCW 3 ([facility] [place] codes replacing CVX 15, 02:51:00 PM EDT H ealth Care) which is being retired. IIV3. This vaccine code is 06/01/2016 completed e CW3 ([place] [place] one of two which replace 03:45:00 PM EDT Health Care) CVX 15, influenza, split virus. Pneumococcal conjugate PCV 06/01/2016 completed e CW3 ([facility] [place] 13 03:45:00 PM EDT Health Care) IIV3. This vaccine code is 06/01/2016 completed e CW3 ([facility] [place] one of two which replace 03:45:00 PM EDT Health Care) CVX 15, influenza, split virus. Pneumococcal conjugate PCV 06/01/2016 completed e CW3 ([facility] [place] 13 03:45:00 PM EDT Health Care) New in 2011. IIV4 07/23/2015 completed eCW3 ([facility] 03:19:00 PM EST Health Care) New in 2011. IIV4 07/23/2015 completed eCW3 ([facility] [place] 03:19:00 PM EST Health Care) IIV3. This vaccine code is 07/20/2014 completed e CW3 ([place] one of two which replace 04:00:00 PM EST Health Care) CVX 15, influenza, split virus. IIV3. This vaccine code is 07/20/2014 completed e CW3 ([place] one of two which replace 04:00:00 PM EST Health Care) CVX 15, influenza, split virus. pneumococcal 03/15/2014 completed [facility] polysaccharide PPV23 06:45:00 PM EDT Cent er IIV3. This is one of two 06/08/2013 completed eCW 3 ([place] codes replacing CVX 15, 02:50:58 PM EDT H ealth Care) which is being retired. IIV3. This is one of two 06/08/2013 completed eCW 3 ([place] codes replacing CVX 15, 02:50:58 PM EDT H ealth Care) which is being retired. IIV3. This vaccine code is 08/15/2012 completed e CW3 ([place] one of two which replace 02:38:32 PM EST Health Care) CVX 15, influenza, split virus. IIV3. This vaccine code is 08/15/2012 completed e CW3 ([facility] [place] one of two which replace 02:38:32 PM EST Health Care) CVX 15, influenza, split virus. pneumococcal 12/28/2011 completed eCW3 ([facility] Ri shu polysaccharide PPV23 02:36:25 PM EDT Heal th Care) pneumococcal 12/28/2011 completed eCW3 ([place] Ri [facility]u polysaccharide PPV23 02:36:25 PM EDT Heal th Care) IIV3. This is one of two 06/22/2011 completed eCW 3 ([facility] [place] codes replacing CVX 15, 02:25:53 PM EDT H ealth Care) which is being retired. IIV3. This is one of two 06/22/2011 completed eCW 3 ([facility] [place] codes replacing CVX 15, 02:25:53 PM EDT H ealth Care) which is being retired. IIV3. This is one of two 06/10/2010 completed eCW 3 ([place] codes replacing CVX 15, 03:15:41 PM EDT H [facility]) which is being retired. IIV3. This is one of two 06/10/2010 completed eCW 3 ([place] codes replacing CVX 15, 03:15:41 PM EDT [facility]) which is being retired. Novel [id number] completed eCW3 ([facility]) Novel [id number] completed eCW3 ([facility]) No Known Immunizations completed eCW2 ([facility]) No Known Immunizations completed eCW2 ([facility]) No Known Immunizations completed eCW2 ([facility]) No Known Immunizations completed eCW2 ([facility]) No Known Immunizations completed eCW2 ([facility]) Medications Medication Brand Start Product Dose Route Administrative Pharmacy [facility] Indications Reaction Description Data Name Date Form Instructions Instructions Source(s) [place] 3 [place] .0 active [place] 3 1000 eCW3 1000 MG 3 1000 2020 {caps MG ([place] MG 12:00: ule} [place] 00 AM [facility] EDT Care) Artificial UNK 05/06/ active Artificial eCW3 Tear 2020 Tear ([place] Ointment - 12:00: Ointment - R iver 00 [facility] EDT Care) Artificial Artifi 05/06/ active Artifici al eCW3 Tears 1-0.3 cial 2020 Tears 1-0.3 ( [place] % Tears 12:00: % [place] 1-0.3 00 AM [facility] EDT Care) olopatadine Olopat 1.0 active Olopata dine eCW3 1 MG/ML adine 2019 {drop HCl 0.1 % ([facility] on Ophthalmic HCl 12:00: _into [place] Solution 0.1 % 00 AM _[facility] Olopatadine EDT cted_ Care) HCl 0.1 % eye} cetirizine ZyrTEC .0 active ZyrTEC e CW3 hydrochlori Allerg 2020 {tabl Allergy 10 ([place] de 10 MG y 10 12:00: et} MG [facility] Oral Tablet MG 00 AM Health [Zyrtec] EDT Care) ZyrTEC Allergy 10 MG Sudafed 12 UNK .0 active Sudafed 12 eCW3 Hour 120 MG 2020 {tabl Hour 120 MG ([place] 12:00: et_as [place] 00 AM _need Health EDT ed} Care) cetirizine [facility] .0 active ZyrTEC e CW3 hydrochlori Allerg 2020 {tabl Allergy 10 ([place] de 10 MG y 10 12:00: et} MG [place] Oral Tablet MG 00 AM Health [[facility]] EDT Care) ZyrTEC Allergy 10 MG cetirizine Cetiri .0 active Cetirizi ne eCW3 hydrochlori zine 2019 {tabl HCl 10 MG (H udson de 10 MG HCl 10 12:00: et} [place] Oral Tablet MG 00 AM Health [facility] EDT Care) HCl 10 MG Sudafed 12 [facility] .0 active Sudafed 12 eCW3 Hour 120 MG 2020 {tabl Hour 120 MG ([place] 12:00: et_as [place] 00 AM _need Health EDT ed} Care) cetirizine [facility] .0 active ZyrTEC e CW3 hydrochlori Allerg 2020 {tabl Allergy 10 ([place] de 10 MG y 10 12:00: et} MG [facility] Oral Tablet MG 00 AM Health [[facility]] EDT Care) ZyrTEC Allergy 10 MG cetirizine Cetiri .0 active Cetirizi ne eCW3 hydrochlori zine 2019 {tabl HCl 10 MG (H udson de 10 MG HCl 10 12:00: et} [place] Oral Tablet MG 00 AM Health Cetirizico EDT Care) HCl 10 MG cetirizine Cetiri .0 active Cetirizi ne eCW3 hydrochlori zine 2019 {tabl HCl 10 MG (H udson de 10 MG HCl 10 12:00: et} [facility] Oral Tablet MG 00 [facility] HCl 10 MG Sudafed 12 K .0 active Sudafed 12 eCW3 Hour 120 MG 2020 {tabl Hour 120 MG ([place] 12:00: et_as [place] 00 AM _need Health EDT ed} Care) MEDROL 03/14/ TABLET 1 complet MEDROL MEDG EN (St DOSEPAK:834 2019 ed DOSEPAK [facility] 023 12:00: Medical, 00 AM ) EDT cetirizine ZyrTEC .0 active ZyrTEC e CW3 hydrochlori Allerg 2020 {tabl Allergy 10 ([place] de 10 MG y 10 12:00: et} MG [facility] Oral Tablet MG 00 AM Health [[facility]] EDT Care) ZyrTEC Allergy 10 MG cetirizine ZyrTEC .0 active ZyrTEC e CW3 hydrochlori Allerg 2020 {tabl Allergy 10 ([place] de 10 MG y 10 12:00: et} MG [facility] Oral Tablet MG 00 AM [facility] [[facility]] EDT Care) ZyrTEC Allergy 10 MG cetirizine ZyrTEC .0 active ZyrTEC e CW3 hydrochlori Allerg 2020 {tabl Allergy 10 ([place] de 10 MG y 10 12:00: et} MG [facility] Oral Tablet MG 00 AM [facility] [[facility]] EDT Care) ZyrTEC Allergy 10 MG cetirizine ZyrTEC .0 active ZyrTEC e CW3 hydrochlori Allerg 2020 {tabl Allergy 10 ([place] de 10 MG y 10 12:00: et} MG [facility] Oral Tablet MG 00 AM [facility] [[facility]] EDT Care) ZyrTEC Allergy 10 MG Sodium Saline 02/25/ active Saline Nasal eCW3 Chloride Nasal 2020 [place] 0.65 % (H udson 0.111 [place] 12:00: [place] MEQ/ML 0.65 % 00 [facility] Nasal [place] EDT Care) Saline Nasal [place] 0.65 % Sodium Saline 02/25/ active Saline Nasal eCW3 Chloride Nasal 2020 [place] 0.65 % (H udson 0.111 [place] 12:00: [place] MEQ/ML 0.65 % 00 [facility] Nasal [place] EDT Care) Saline Nasal [place] 0.65 % Polyvinyl Artifi 02/21/ active Artificia l eCW3 Alcohol cial 2020 Tears 1.4 % ([facility] 0.014 ML/ML Tears 12:00: [facility] Ophthalmic 1.4 % 00 AM Health Solution EDT Care) Artificial Tears 1.4 % Ketotifen Ketoti 02/15/ active Ketotifen eCW3 0.25 MG/ML fen 2020 Fumarate ([facility] Ophthalmic Fumara 12:00: 0.025 % Ri shu Solution te 00 AM Health Ketotifen 0.025 EDT Care) Fumarate % 0.025 % Azelastine Azelas .0 active Azelasti ne eCW3 HCl 137 jordon 2020 {puff HCl 137 ([place] MCG/SPRAY HCl 12:00: _in_e MCG/SPRAY Ri shu 137 00 AM ach_n Health MCG/SP EDT ostri Care) RAY l} Ketotifen Ketoti 02/15/ active Ketotifen eCW3 0.25 MG/ML fen 2020 Fumarate ([facility] Ophthalmic Fumara 12:00: 0.025 % Ri shu Solution te 00 AM Health Ketotifen 0.025 EDT Care) Fumarate % 0.025 % Azelastine Azelas .0 active Azelasti ne eCW3 HCl 137 jordon 2020 {puff HCl 137 ([place] MCG/SPRAY HCl 12:00: _in_e MCG/SPRAY Ri shu 137 00 AM ach_n Health MCG/SP EDT ostri Care) RAY l} Azelastine Azelas .0 active Azelasti ne eCW3 HCl 137 jordon 2020 {puff HCl 137 ([place] MCG/SPRAY HCl 12:00: _in_e MCG/SPRAY Ri shu 137 00 AM ach_n Health MCG/SP EDT ostri Care) RAY l} Ketotifen Ketoti 02/15/ active Ketotifen eCW3 0.25 MG/ML fen 2020 Fumarate ([facility] Ophthalmic Fumara 12:00: 0.025 % Ri shu Solution te 00 AM Health Ketotifen 0.025 EDT Care) Fumarate % 0.025 % Azelastine Azelas .0 active Azelasti ne eCW3 HCl 137 jordon 2020 {puff HCl 137 ([place] MCG/SPRAY HCl 12:00: _in_e MCG/SPRAY Ri shu 137 00 AM ach_n Health MCG/SP EDT ostri Care) RAY l} Cimetidine Cimeti .0 active Cimetidi ne eCW3 200 MG Oral dine 2020 {tabl 200 MG ([facility] Tablet 200 MG 12:00: et_as [place] AM _need Health EDT ed} Care) Cimetidine Cimeti .0 active Cimetidi ne eCW3 200 MG Oral dine 2020 {tabl 200 MG ([facility] Tablet 200 MG 12:00: et_as [place] AM _need Health EDT ed} Care) Cimetidine Cimeti .0 active Cimetidi ne eCW3 200 MG Oral dine 2020 {tabl 200 MG ([facility] Tablet 200 MG 12:00: et_as [place] AM _need Health EDT ed} Care) Cimetidine Cimeti .0 active Cimetidi ne eCW3 200 MG Oral dine 2020 {tabl 200 MG ([facility] Tablet 200 MG 12:00: et_as [place] AM _need Health EDT ed} Care) Cimetidine Cimeti .0 active Cimetidi ne eCW3 200 MG Oral dine 2020 {tabl 200 MG ([facility] Tablet 200 MG 12:00: et_as [place] AM _need Health EDT ed} Care) Cimetidine Cimeti .0 active Cimetidi ne eCW3 200 MG Oral dine 2020 {tabl 200 MG ([facility] Tablet 200 MG 12:00: et_as [place] AM _need Health EDT ed} Care) olopatadine Olopat .0 active Olopata dine eCW3 1 MG/ML adine 2019 {drop HCl 0.1 % ([facility] Op[facility]mic HCl 12:00: _into [place] Solution 0.1 % _[facility] Olopatadine EDT cted_ Care) HCl 0.1 % eye} olopatadine Olopat .0 active Olopata dine eCW3 1 MG/ML adine 2019 {drop HCl 0.1 % ([facility] Op[facility] HCl 12:00: _into [place] Solution 0.1 % 00 AM _[facility] Olopatadine EDT cted_ Care) HCl 0.1 % eye} olopatadine Olopat 1.0 active Olopata dine eCW3 1 MG/ML adine 2019 {drop HCl 0.1 % ([facility] Op[facility] HCl 12:00: _into [place] Solution 0.1 % 00 AM _[facility] Olopatadine EDT cted_ Care) HCl 0.1 % eye} olopatadine Olopat .0 active Olopata dine eCW3 1 MG/ML adine 2019 {drop HCl 0.1 % ([facility] Op[facility]mic HCl 12:00: _into [place] Solution 0.1 % 00 AM _[facility] Olopatadine EDT cted_ Care) HCl 0.1 % eye} olopatadine Olopat .0 active Olopata dine eCW3 1 MG/ML adine 2019 {drop HCl 0.1 % ([facility] Op[facility] HCl 12:00: _into [place] Solution 0.1 % 00 AM _[facility] Olopatadine EDT cted_ Care) HCl 0.1 % eye} olopatadine Olopat .0 active Olopata dine eCW3 1 MG/ML adine 2019 {drop HCl 0.1 % ([facility] Op[facility] HCl 12:00: _into [place] Solution 0.1 % 00 AM _[facility] Olopatadine EDT cted_ Care) HCl 0.1 % eye} Azithromyci Azithr 01/01/ active Azithro mycin eCW3 n 250 MG omycin 2020 250 MG ([place] Oral Tablet 250 MG 12:00: Rive r 00 AM Health EDT Care) Albuterol Ipratr 12/24/ 3.0 active Ipratropi um- eCW3 0.833 MG/ML opium- 2019 {ml_a Albuterol ([place] / [place] 12:00: s_nee 0.5-2.5 (3) Mateusz er Ipratropium rol 00 AM ded} MG/3ML Healt [facility] [place] 0.5-2. EDT Care) 0.167 MG/ML 5 (3) Inhalant MG/3ML Solution Ipratropium -Albuterol 0.5-2.5 (3) MG/3ML Prednisone Predni 1.0 active PredniSO NE eCW3 50 MG Oral SONE 2019 {tabl 50 MG ([place] Tablet 50 MG 12:00: et} [place] PredniSONE 00 AM Health 50 MG EDT Care) Prednisone Predni .0 active PredniSO NE eCW3 50 MG Oral SONE 2020 {tabl 50 MG ([place] Tablet 50 MG 12:00: et} [place] PredniSONE 00 AM Health 50 MG EDT Care) Prednisone Predni .0 active PredniSO NE eCW3 50 MG Oral SONE 2020 {tabl 50 MG ([place] Tablet 50 MG 12:00: et} [place] PredniSONE 00 AM Health 50 MG EDT Care) Prednisone Predni .0 active PredniSO NE eCW3 50 MG Oral SONE 2020 {tabl 50 MG ([place] Tablet 50 MG 12:00: et} [place] PredniSONE 00 AM Health 50 MG EDT Care) Albuterol Ipratr 3.0 active Ipratropi um- eCW3 0.833 MG/ML opium- 2019 {ml_a Albuterol ([place] / [place] 12:00: s_nee 0.5-2.5 (3) Mateusz er Ipratropium rol 00 AM ded} MG/3ML Healt [facility] [place] 0.5-2. EDT Care) 0.167 MG/ML 5 (3) Inhalant MG/3ML Solution Ipratropium -Albuterol 0.5-2.5 (3) MG/3ML Albuterol Ipratr .0 active Ipratropi um- eCW3 0.833 MG/ML opium- 2020 {ml_a Albuterol ([place] / [place] 12:00: s_nee 0.5-2.5 (3) Mateusz er Ipratropium rol 00 AM ded} MG/3ML [facility]alt [facility] [place] 0.5-2. EDT Care) 0.167 MG/ML 5 (3) Inhalant MG/3ML Solution Ipratropium -Albuterol 0.5-2.5 (3) MG/3ML Albuterol Ipratr 3.0 active Ipratropi um- eCW3 0.833 MG/ML opium- 2020 {ml_a Albuterol ([place] / [place] 12:00: s_nee 0.5-2.5 (3) Mateusz er Ipratropium rol 00 AM ded} MG/3ML [facility] [place] 0.5-2. EDT Care) 0.167 MG/ML 5 (3) Inhalant MG/3ML Solution Ipratropium -Albuterol 0.5-2.5 (3) MG/3ML Albuterol Ipratr 3.0 active Ipratropi um- eCW3 0.833 MG/ML opium- 2020 {ml_a Albuterol ([place] / [place] 12:00: s_nee 0.5-2.5 (3) Mateusz er Ipratropium rol 00 AM ded} MG/3ML [facility] [place] 0.5-2. EDT Care) 0.167 MG/ML 5 (3) Inhalant MG/3ML Solution Ipratropium -Albuterol 0.5-2.5 (3) MG/3ML Prednisone Predni 1.0 suspend PredniS ONE eCW3 50 MG Oral SONE 2020 {tabl ed 50 MG ([place] Tablet 50 MG 12:00: et} [place] PredniSONE 00 AM Health 50 MG EDT Care) Albuterol Ipratr 3.0 active Ipratropi um- eCW3 0.833 MG/ML opium- 2020 {ml_a Albuterol ([place] / [place] 12:00: s_nee 0.5-2.5 (3) Mateusz er Ipratropium rol 00 AM ded} MG/3ML [facility] [place] 0.5-2. EDT Care) 0.167 MG/ML 5 (3) Inhalant MG/3ML Solution Ipratropium -Albuterol 0.5-2.5 (3) MG/3ML Prednisone Predni 1.0 suspend PredniS ONE eCW3 50 MG Oral SONE 2020 {tabl ed 50 MG ([place] Tablet 50 MG 12:00: et} [place] PredniSONE 00 AM Health 50 MG EDT Care) Albuterol Ipratr 3.0 active Ipratropi um- eCW3 0.833 MG/ML opium- 2020 {ml_a Albuterol ([place] / [place] 12:00: s_nee 0.5-2.5 (3) Mateusz er Ipratropium rol 00 AM ded} MG/3ML [facility]alt [facility] [place] 0.5-2. EDT Care) 0.167 MG/ML 5 (3) Inhalant MG/3ML Solution Ipratropium -Albuterol 0.5-2.5 (3) MG/3ML Prednisone Predni .0 suspend PredniS ONE eCW3 50 MG Oral SONE 2019 {tabl ed 50 MG ([place] Tablet 50 MG 12:00: et} [place] PredniSONE 00 AM Health 50 MG EDT Care) Dymista Dymist .0 active Dymista eCW 3 137-50 a 2019 {spra 137-50 ([place] MCG/ACT 137-50 12:00: y_in_ MCG/ACT Rive r MCG/AC 00 AM each_ Health T EDT nostr Care) il} Flonase Flonas .0 active Flonase eCW 3 Sensimist e 2019 {spra Sensimist ([facility] 27.5 Sensim 12:00: y_in_ 27.5 [place] MCG/SPRAY ist 00 AM each_ MCG/SPRAY Hea lth 27.5 EDT nostr Care) MCG/SP il} RAY Dymista Dymist .0 active Dymista eCW 3 137-50 a 2019 {spra 137-50 ([place] MCG/ACT 137-50 12:00: y_in_ MCG/ACT Rive r MCG/AC 00 AM each_ Health T EDT nostr Care) il} Dymista Dymist .0 active Dymista eCW 3 137-50 a 2019 {spra 137-50 ([place] MCG/ACT 137-50 12:00: y_in_ MCG/ACT R[facility] r MCG/AC 00 AM each_ Health T EDT nostr Care) il} Dymista Dymist .0 active Dymista eCW 3 137-50 a 2019 {spra 137-50 ([place] MCG/ACT 137-50 12:00: y_in_ MCG/ACT Rive r MCG/AC 00 AM each_ Health T EDT nostr Care) il} Dymista Dymist .0 active Dymista eCW 3 137-50 a 2020 {spra 137-50 ([place] MCG/ACT 137-50 12:00: y_in_ MCG/ACT Rive r MCG/AC 00 AM each_ Health T EDT nostr Care) il} Flonase Flonas .0 active Flonase eCW 3 Sensimist e 2020 {spra Sensimist ([facility] son 27.5 Sensim 12:00: y_in_ 27.5 [place] MCG/SPRAY ist 00 AM each_ MCG/SPRAY Hea lth 27.5 EDT nostr Care) MCG/SP il} RAY Flonase Flonas .0 active Flonase eCW 3 Sensimist e 2020 {spra Sensimist ([facility] son 27.5 Sensim 12:00: y_in_ 27.5 [place] MCG/SPRAY ist 00 AM each_ MCG/SPRAY Hea lth 27.5 EDT nostr Care) MCG/SP il} RAY Flonase Flonas .0 active Flonase eCW 3 Sensimist e 2020 {spra Sensimist ([facility] son 27.5 Sensim 12:00: y_in_ 27.5 [place] MCG/SPRAY ist 00 AM each_ MCG/SPRAY Hea lth 27.5 EDT nostr Care) MCG/SP il} RAY Dymista Dymist .0 active Dymista eCW 3 137-50 a 2020 {spra 137-50 ([place] MCG/ACT 137-50 12:00: y_in_ MCG/ACT Rive r MCG/AC 00 AM each_ Health T EDT nostr Care) il} Dymista Dymist .0 active Dymista eCW 3 137-50 a 2020 {spra 137-50 ([place] MCG/ACT 137-50 12:00: y_in_ MCG/ACT Rive r MCG/AC 00 AM each_ Health T EDT nostr Care) il} Dymista Dymist .0 active Dymista eCW 3 137-50 a 2020 {spra 137-50 ([place] MCG/ACT 137-50 12:00: y_in_ MCG/ACT Rive r MCG/AC 00 AM each_ Health T EDT nostr Care) il} Naproxen Naprox 11/22/ active Naproxen 5 00 eCW3 500 MG Oral en 500 2020 MG ([facility] Tablet MG 12:00: [place] 00 AM Health EDT Care) Naproxen Naprox 11/22/ active Naproxen 5 00 eCW3 500 MG Oral en 500 2020 MG ([facility] Tablet MG 12:00: [place] 00 AM Health EDT Care) Naproxen Naprox 11/22/ active Naproxen 5 00 eCW3 500 MG Oral en 500 2020 MG ([facility] n Tablet MG 12:00: [place] 00 AM Health EDT Care) Hydrochloro HYDROC 11/06/ TABLET 90 complet HYDR OCHLOROT MEDGEN (St thiazide 25 HLOROT 2020 ed HIAZIDE Chris n's MG Oral HIAZID 12:00: Medical, Tablet E:3107 00 AM PC) HYDROCHLORO 98 EST THIAZIDE:31 0798 Prednisone PREDNI 10/10/ TABLET 20 complet PREDN ISONE MEDGEN (St 5 MG Oral SONE:3 2019 ed [facility] Tablet 14154 12:00: Medical, PREDNISONE: 00 AM PC) [id number] EST Azithromyci ZITHRO 10/10/ 6 complet ZITHRO MAX MEDGEN (St n 250 MG MAX 2020 ed Z-RASHEEDA [facility] Oral Tablet Z-RASHEEDA: 12:00: Medi zeenat, ZITHROMAX 170201 00 AM PC) Z-RASHEEDA:55123 EST 0 Amoxicillin Amoxic .0 active Amoxici llin eCW3 500 MG Oral illin 2020 {caps 500 MG ([facility] Capsule 500 MG 12:00: ule} [place] 00 AM Health EST Care) Amoxicillin Amoxic .0 active Amoxici llin eCW3 500 MG Oral illin 2020 {caps 500 MG ([facility] Capsule 500 MG 12:00: ule} [place] 00 AM Health EST Care) Amoxicillin Amoxic 1.0 active Amoxici llin eCW3 500 MG Oral illin 2020 {caps 500 MG ([facility] son Capsule 500 MG 12:00: ule} [place] 00 AM Health EST Care) Amoxicillin Amoxic .0 active Amoxici llin eCW3 500 MG Oral illin 2020 {caps 500 MG ([facility] Capsule 500 MG 12:00: ule} [place] 00 AM Health EST Care) Amoxicillin Amoxic .0 active Amoxici llin eCW3 500 MG Oral illin 2019 {caps 500 MG ([facility] Capsule 500 MG 12:00: ule} [place] 00 AM Health EST Care) Hydroxyzine HydrOX .0 active HydrOXY zine eCW3 Hydrochlori Yzine 2019 {tabl HCl 50 MG ( [place] de 50 MG HCl 50 12:00: et_as [place] Oral Tablet MG 00 AM _need Health HydrOXYzine EST ed} Care) HCl 50 MG Hydroxyzine HydrOX .0 active HydrOXY zine eCW3 Hydrochlori Yzine 2019 {tabl HCl 50 MG ( [place] de 50 MG HCl 50 12:00: et_as [place] Oral Tablet MG 00 AM _need Health HydrOXYzine EST ed} Care) HCl 50 MG Hydroxyzine HydrOX .0 active HydrOXY zine eCW3 Hydrochlori Yzine 2019 {tabl HCl 50 MG ( [place] de 50 MG HCl 50 12:00: et_as [place] Oral Tablet MG 00 AM _need Health HydrOXYzine EST ed} Care) HCl 50 MG Hydroxyzine HydrOX .0 active HydrOXY zine eCW3 Hydrochlori Yzine 2019 {tabl HCl 50 MG ( [place] de 50 MG HCl 50 12:00: et_as [place] Oral Tablet MG 00 AM _need Health HydrOXYzine EST ed} Care) HCl 50 MG Hydroxyzine HydrOX .0 active HydrOXY zine eCW3 Hydrochlori Yzine 2019 {tabl HCl 50 MG ( [place] de 50 MG HCl 50 12:00: et_as [place] Oral Tablet MG 00 AM _need Health HydrOXYzine EST ed} Care) HCl 50 MG Hydroxyzine HydrOX .0 active HydrOXY zine eCW3 Hydrochlori Yzine 2019 {tabl HCl 50 MG ( [place] de 50 MG HCl 50 12:00: et_as [place] Oral Tablet MG 00 AM _need Health HydrOXYzine EST ed} Care) HCl 50 MG Hydroxyzine HydrOX .0 active HydrOXY zine eCW3 Hydrochlori Yzine 2019 {tabl HCl 50 MG ( [place] de 50 MG HCl 50 12:00: et_as [place] Oral Tablet MG 00 AM _need Health HydrOXYzine EST ed} Care) HCl 50 MG Hydroxyzine HydrOX .0 active HydrOXY zine eCW3 Hydrochlori Yzine 2019 {tabl HCl 50 MG ( [place] de 50 MG HCl 50 12:00: et_as [place] Oral Tablet MG 00 AM _need Health HydrOXYzine EST ed} Care) HCl 50 MG Hydroxyzine HydrOX .0 active HydrOXY zine eCW3 Hydrochlori Yzine 2019 {tabl HCl 50 MG ( [place] de 50 MG HCl 50 12:00: et_as [place] Oral Tablet MG 00 AM _need Health HydrOXYzine EST ed} Care) HCl 50 MG Hydroxyzine HydrOX .0 active HydrOXY zine eCW3 Hydrochlori Yzine 2019 {tabl HCl 50 MG ( [place] de 50 MG HCl 50 12:00: et_as [place] Oral Tablet MG 00 AM _need Health HydrOXYzine EST ed} Care) HCl 50 MG Hydroxyzine HydrOX .0 active HydrOXY zine eCW3 Hydrochlori Yzine 2019 {tabl HCl 50 MG ( [place] de 50 MG HCl 50 12:00: et_as [place] Oral Tablet MG 00 AM _need Health HydrOXYzine EST ed} Care) HCl 50 MG benzonatate Tessal .0 active Tessalo n eCW3 100 MG Oral on 2019 {caps Perles 100 ( [place] Capsule Perles 12:00: ule_a MG [place] [Tessalon 100 MG 00 AM s_nee Health Perles] EST ded} Care) Tessalon [place] 100 MG Artificial Artifi 09/11/ active Artifici al eCW3 Tears 1-0.3 cial 2020 Tears 1-0.3 ( [place] % Tears 12:00: % [place] 1-0.3 00 AM Health % EST Care) Artificial Artifi 09/11/ active Artifici al eCW3 Tears 1-0.3 cial 2020 Tears 1-0.3 ( [place] % Tears 12:00: % [place] 1-0.3 00 AM Health % EST Care) Artificial Artifi 09/11/ active Artifici al eCW3 Tears 1-0.3 cial 2019 Tears 1-0.3 ( [place] % Tears 12:00: % [place] 1-0.3 00 AM Health % EST Care) Artificial Artifi 09/11/ active Artifici al eCW3 Tears 1-0.3 cial 2020 Tears 1-0.3 ( [place] % Tears 12:00: % [place] 1-0.3 00 AM Health % EST Care) Artificial Artifi 09/11/ active Artifici al eCW3 Tears 1-0.3 cial 2020 Tears 1-0.3 ( [place] % Tears 12:00: % [place] 1-0.3 00 AM Health % EST Care) Artificial Artifi 09/11/ active Artifici al eCW3 Tears 1-0.3 cial 2020 Tears 1-0.3 ( [place] % Tears 12:00: % [place] 1-0.3 00 AM Health % EST Care) Artificial Artifi 09/11/ active Artifici al eCW3 Tears 1-0.3 cial 2020 Tears 1-0.3 ( [place] % Tears 12:00: % [place] 1-0.3 00 AM Health % EST Care) Artificial Artifi 09/11/ active Artifici al eCW3 Tears 1-0.3 cial 2020 Tears 1-0.3 ( [place] % Tears 12:00: % [place] 1-0.3 00 AM Health % EST Care) Artificial Artifi 09/11/ active Artifici al eCW3 Tears 1-0.3 cial 2020 Tears 1-0.3 ( [place] % Tears 12:00: % [place] 1-0.3 00 AM Health % EST Care) Artificial Artifi 09/11/ active Artifici al eCW3 Tears 1-0.3 cial 2020 Tears 1-0.3 ( [place] % Tears 12:00: % [place] 1-0.3 00 AM Health % EST Care) Artificial Artifi 09/11/ active Artifici al eCW3 Tears 1-0.3 cial 2020 Tears 1-0.3 ( [place] % Tears 12:00: % [place] 1-0.3 00 AM Health % EST Care) Artificial Artifi 09/11/ active Artifici al eCW3 Tears 1-0.3 cial 2020 Tears 1-0.3 ( [place] % Tears 12:00: % [place] 1-0.3 00 AM Health % EST Care) Humidifier Humidi 08/23/ active Humidifi er - eCW3 - fier - 2019 ([place] 12:00: [place] 00 AM Health EST Care) Humidifier Humidi 08/23/ active Humidifi er - eCW3 - fier - 2019 ([place] 12:00: [place] 00 AM Health EST Care) Humidifier Humidi 08/23/ active Humidifi er - eCW3 - fier - 2018 ([place] 12:00: [place] 00 AM Health EST Care) Humidifier Humidi 08/23/ active Humidifi er - eCW3 - fier - 2018 ([place] 12:00: [place] 00 AM Health EST Care) Humidifier Humidi 08/23/ active Humidifi er - eCW3 - fier - 2018 ([place] 12:00: [place] 00 AM Health EST Care) Humidifier Humidi 08/23/ active Humidifi er - eCW3 - fier - 2018 ([place] 12:00: [place] 00 AM Health EST Care) Humidifier Humidi 08/23/ active Humidifi er - eCW3 - fier - 2018 ([place] 12:00: [place] 00 AM Health EST Care) Humidifier Humidi 08/23/ active Humidifi er - eCW3 - fier - 2018 ([place] 12:00: [place] 00 AM Health EST Care) Humidifier Humidi 08/23/ active Humidifi er - eCW3 - fier - 2018 ([place] 12:00: [place] 00 AM Health EST Care) Humidifier Humidi 08/23/ active Humidifi er - eCW3 - fier - 2018 ([place] 12:00: [place] 00 AM Health EST Care) Humidifier Humidi 08/23/ active Humidifi er - eCW3 - fier - 2018 ([place] 12:00: [place] 00 AM Health EST Care) Humidifier Humidi 08/23/ active Humidifi er - eCW3 - fier - 2019 ([place] 12:00: [place] 00 AM Health EST Care) Azithromyci ZITHRO complet ZITHRO MAX MEDGEN (St n 250 MG MAX 2019 ed Z-RASHEEDA [facility] Oral Tablet Z-RASHEEDA: 12:00: Medi zeenat, ZITHROMAX [id number] 00 AM PC) Z-RASHEEDA:08015 EST 0 Diphenhydra BENADR 08/04/ CAPSULE 30 complet JAZZ ADRYL MEDGEN (St mine YL:104 2019 ed Didi Hydrochlori 9910 12:00: Medica l, de 25 MG 00 AM PC) Oral EST Capsule [Benadryl] BENADRYL:10 49987 montelukast SINGUL 08/04/ TABLET 30 complet SING ULAIR MEDGEN (St 10 MG Oral AIR:15 2019 ed [facility] Tablet 3892 12:00: Medical, [Singulair] 00 AM PC) SINGULAIR:1 EST 47741 Flonase Flonas .0 active Flonase eCW 3 Allergy e 2019 {spra Allergy ([place] Relief 50 Allerg 12:00: y_in_ Relief 50 [place] MCG/ACT y 00 AM each_ MCG/ACT Health Relief EST nostr Care) 50 il} MCG/AC T Flonase Flonas .0 active Flonase eCW 3 Allergy e 2019 {spra Allergy ([place] Relief 50 Allerg 12:00: y_in_ Relief 50 [place] MCG/ACT y 00 AM each_ MCG/ACT Health Relief EST nostr Care) 50 il} MCG/AC T Flonase Flonas .0 active Flonase eCW 3 Allergy e 2019 {spra Allergy ([place] Relief 50 Allerg 12:00: y_in_ Relief 50 [place] MCG/ACT y 00 AM each_ MCG/ACT Health Relief EST nostr Care) 50 il} MCG/AC T Flonase Flonas .0 active Flonase eCW 3 Allergy e 2019 {spra Allergy ([place] Relief 50 Allerg 12:00: y_in_ Relief 50 [place] MCG/ACT y 00 AM each_ MCG/ACT Health Relief EST nostr Care) 50 il} MCG/AC T Flonase Flonas .0 active Flonase eCW 3 Allergy e 2019 {spra Allergy ([place] Relief 50 Allerg 12:00: y_in_ Relief 50 [place] MCG/ACT y 00 AM each_ MCG/ACT Health Relief EST nostr Care) 50 il} MCG/AC T Flonase Flonas .0 active Flonase eCW 3 Allergy e 2019 {spra Allergy ([place] Relief 50 Allerg 12:00: y_in_ Relief 50 [place] MCG/ACT y 00 AM each_ MCG/ACT Health Relief EST nostr Care) 50 il} MCG/AC T Flonase Flonas .0 active Flonase eCW 3 Allergy e 2019 {spra Allergy ([place] Relief 50 Allerg 12:00: y_in_ Relief 50 [place] MCG/ACT y 00 AM each_ MCG/ACT Health Relief EST nostr Care) 50 il} MCG/AC T Flonase Flonas .0 active Flonase eCW 3 Allergy e 2019 {spra Allergy ([place] Relief 50 Allerg 12:00: y_in_ Relief 50 [place] MCG/ACT y 00 AM each_ MCG/ACT Health Relief EST nostr Care) 50 il} MCG/AC T Flonase Flonas .0 active Flonase eCW 3 Allergy e 2019 {spra Allergy ([place] Relief 50 Allerg 12:00: y_in_ Relief 50 [place] MCG/ACT y 00 AM each_ MCG/ACT Health Relief EST nostr Care) 50 il} MCG/AC T Flonase Flonas .0 active Flonase eCW 3 Allergy e 2019 {spra Allergy ([place] Relief 50 Allerg 12:00: y_in_ Relief 50 [place] MCG/ACT y 00 AM each_ MCG/ACT Health Relief EST nostr Care) 50 il} MCG/AC T Flonase Flonas .0 active Flonase eCW 3 Allergy e 2019 {spra Allergy ([place] Relief 50 Allerg 12:00: y_in_ Relief 50 [place] MCG/ACT y 00 AM each_ MCG/ACT Health Relief EST nostr Care) 50 il} MCG/AC T Flonase Flonas .0 active Flonase eCW 3 Allergy e 2019 {spra Allergy ([place] Relief 50 Allerg 12:00: y_in_ Relief 50 [place] MCG/ACT y 00 AM each_ MCG/ACT Health Relief EST nostr Care) 50 il} MCG/AC T Prednisone PREDNI 07/10/ TABLET 30 complet PREDN ISONE MEDGEN (St 5 MG Oral SONE:3 2018 ed [facility] Tablet 32595 12:00: Medical, PREDNISONE: 00 AM PC) [id number] EST MOMETASONE 06/26/ SPRAY 1 complet MOMETASO NE MEDGEN (St NASAL:18063 2019 ed NASAL [facility] 65 12:00: Medical, 00 AM PC) EDT Fexofenadin FEXOFE 06/26/ TABLET, 30 complet FEX OFENADINE MEDGEN (St e BRAYDEN 2019 EXTENDED ed -PSEUDOEPHED J ohn's hydrochlori -PSEUD 12:00: RELEASE RINE M edical, de 180 MG / OEPHED 00 AM PC) Pseudoephed RINE:9 EDT rine 31744 Hydrochlori de 240 MG Extended Release Oral Tablet FEXOFENADIN E-PSEUDOEPH EDRINE:9974 18 60 ACTUAT SPIRIV 05/17/ AEROSOL 1 complet SPIRI VA MEDGEN (St tiotropium A 2019 ed RESPIMAT 60 Tori hn's 0.0025 RESPIM 12:00: ACT Medical, MG/ACTUAT AT 60 00 AM PC) Metered ACT:15 EDT Dose 81273 Inhaler [Spiriva] SPIRIVA RESPIMAT 60 ACT:[id number] 120 ACTUAT SYMBIC 05/03/ AEROSOL 1 complet SYMB ICORT MEDGEN (St Budesonide ORT:12 2018 ed [facility] 0.16 62647 12:00: Medical, MG/ACTUAT / 00 AM PC) formoterol EDT fumarate 0.0045 MG/ACTUAT Metered Dose Inhaler [Symbicort] SYMBICORT:1 [id number] 30 ACTUAT INCRUS 05/03/ POWDER 1 complet INCRUS E MEDGEN (St umeclidiniu E 2019 ed ELLIPTA Kw[facility] s m 0.0625 ELLIPT 12:00: Medical , MG/ACTUAT A:1539 00 AM PC) Dry Powder 885 EDT Inhaler [Incruse] INCRUSE ELLIPTA:153 9885 TRELEGY 05/01/ POWDER 1 complet TRELEGY ME DGEN (St ELLIPTA:194 2018 ed ELLIPTA [facility] 5044 12:00: Medical, 00 AM PC) EDT Nebulizer - Nebuli 01/24/ active Nebuliz er - eCW3 zer - 2018 ([place] 12:00: [place] 00 AM Health EDT Care) Spacer/Aero UNK 01/24/ active Spacer/Ae ro- eCW3 -Hold 2019 Hold Chamber ([facility] n Chamber 12:00: Mask - [place] Mask - 00 AM Health EDT Care) Nebulizer - Nebuli 01/24/ active Nebuliz er - eCW3 zer - 2018 ([place] 12:00: [place] 00 AM Health EDT Care) Spacer/Aero UNK 05/21/ active Spacer/Ae ro- eCW3 -Hold 2018 Hold Chamber ([facility] 12:00: Mask - [place] Mask - 00 AM Health EDT Care) Spacer/Aero UNK 05/21/ active Spacer/Ae ro- eCW3 -Hold 2018 Hold Chamber ([place] 12:00: Mask - [place] Mask - 00 AM Health EDT Care) Nebulizer - Nebuli 05/21/ active Nebuliz er - eCW3 zer - 2018 ([place] 12:00: [place] 00 AM Health EDT Care) Nebulizer - Nebuli 05/21/ active Nebuliz er - eCW3 2018 ([place] 12:00: [place] 00 AM Health EDT Care) Nebulizer - Nebuli 05/21/ active Nebuliz er - eCW3 zer 2018 ([place] 12:00: [place] 00 AM Health EDT Care) Spacer/Aero UNK 05/21/ active Spacer/Ae ro- eCW3 -Hold 2018 Hold Chamber ([place] 12:00: Mask - [place] Mask - 00 AM Health EDT Care) Nebulizer - Nebuli 05/21/ active Nebuliz er - eCW3 zer 2018 ([place] 12:00: [place] 00 AM Health EDT Care) Nebulizer - Nebuli 05/21/ active Nebuliz er - eCW3 2018 ([place] 12:00: [place] 00 AM Health EDT Care) Spacer/Aero UNK 05/21/ active Spacer/Ae ro- eCW3 -Hold 2018 Hold Chamber ([place] 12:00: Mask - [place] Mask - 00 AM Health EDT Care) Spacer/Aero UNK 05/21/ active Spacer/Ae ro- eCW3 -Hold 2018 Hold Chamber ([place] [facility] 12:00: Mask - [place] Mask - 00 AM Health EDT Care) Spacer/Aero UNK 05/21/ active Spacer/Ae ro- eCW3 -Hold 2018 Hold Chamber ([place] [facility] 12:00: Mask - [place] Mask - 00 AM Health EDT Care) Nebulizer - Nebuli 05/21/ active Nebuliz er - eCW3 2018 ([place] 12:00: [place] 00 AM Health EDT Care) Nebulizer - Nebuli 05/21/ active Nebuliz er - eCW3 zer - 2018 ([place] 12:00: [place] 00 AM Health EDT Care) Spacer/Aero UNK 05/21/ active Spacer/Ae ro- eCW3 -Hold 2018 Hold Chamber ([place] [facility] 12:00: Mask - [place] Mask - 00 AM Health EDT Care) Nebulizer - Nebuli 05/21/ active Nebuliz er - eCW3 zer - 2018 ([place] 12:00: [place] 00 AM Health EDT Care) Nebulizer - Nebuli 05/21/ active Nebuliz er - eCW3 zer - 2018 ([place] 12:00: [place] 00 AM Health EDT Care) Spacer/Aero UNK 05/21/ active Spacer/Ae ro- eCW3 -Hold 2018 Hold Chamber ([place] [facility] 12:00: Mask - [place] Mask - 00 AM Health EDT Care) Spacer/Aero UNK 05/21/ active Spacer/Ae ro- eCW3 -Hold 2018 Hold Chamber ([place] [facility] 12:00: Mask - [place] Mask - 00 AM Health EDT Care) Nebulizer - Nebuli 05/21/ active Nebuliz er - eCW3 zer - 2018 ([place] 12:00: [place] 00 AM Health EDT Care) Nebulizer - Nebuli 05/21/ active Nebuliz er - eCW3 zer - 2018 ([place] 12:00: [place] 00 AM Health EDT Care) Spacer/Aero UNK 05/21/ active Spacer/Ae ro- eCW3 -Hold 2018 Hold Chamber ([place] [facility] 12:00: Mask - [place] Mask - 00 AM Health EDT Care) Nebulizer - Nebuli 05/21/ active Nebuliz er - eCW3 zer - 2018 ([place] 12:00: [place] 00 AM Health EDT Care) Spacer/Aero UNK 05/21/ active Spacer/Ae ro- eCW3 -Hold 2018 Hold Chamber ([place] [facility] 12:00: Mask - [place] Mask - 00 AM Health EDT Care) Spacer/Aero UNK 05/21/ active Spacer/Ae ro- eCW3 -Hold 2018 Hold Chamber ([place] [facility] 12:00: Mask - [place] Mask - 00 AM Health EDT Care) Spacer/Aero UNK 05/21/ active Spacer/Ae ro- eCW3 -Hold 2018 Hold Chamber ([place] [facility] 12:00: Mask - [place] Mask - 00 AM Health EDT Care) Ibuprofen Ibupro 12/07/ active Ibuprofen eCW3 200 MG Oral fen 2019 200 MG ([place] [facility] Tablet 200 MG 12:00: [place] 00 AM Health EDT Care) Sudafed 24 [facility] .0 active Sudafed 24 eCW3 Hour 240 MG 2018 {tabl Hour 240 MG ([place] 12:00: et_as [place] 00 AM _need Health EST ed} Care) Sudafed 24 [facility] .0 active Sudafed 24 eCW3 Hour 240 MG 2018 {tabl Hour 240 MG ([place] 12:00: et_as [place] 00 AM _need Health EST ed} Care) Sudafed 24 [facility] .0 active Sudafed 24 eCW3 Hour 240 MG 2018 {tabl Hour 240 MG ([place] 12:00: et_as [place] 00 AM _need Health EST ed} Care) Sudafed 24 [facility] .0 active Sudafed 24 eCW3 Hour 240 MG 2018 {tabl Hour 240 MG ([place] 12:00: et_as [place] 00 AM _need Health EST ed} Care) Sudafed 24 [facility] .0 active Sudafed 24 eCW3 Hour 240 MG 2018 {tabl Hour 240 MG ([place] 12:00: et_as [place] 00 AM _need Health EST ed} Care) 24 HR Sudafe .0 active Sudafed 24 eC W3 Pseudoephed d 24 2017 {tabl Hour 240 MG ([place] rine Hour 12:00: et_as [place] Hydrochlori 240 MG 00 AM _need Heal th de 240 MG EST ed} Care) Extended Release Oral Tablet [Sudafed] Sudafed 24 Hour 240 MG Sudafed 24 [facility] .0 active Sudafed 24 eCW3 Hour 240 MG 2018 {tabl Hour 240 MG ([place] 12:00: et_as [place] 00 AM _need Health EST ed} Care) Sudafed 24 [facility] .0 active Sudafed 24 eCW3 Hour 240 MG 2018 {tabl Hour 240 MG ([place] 12:00: et_as [place] 00 AM _need Health EST ed} Care) 24 HR Sudafe .0 active Sudafed 24 eC W3 Pseudoephed d 2017 {tabl Hour 240 MG ([place] rine Hour 12:00: et_as [place] Hydrochlori 240 MG 00 AM _need Heal th de 240 MG EST ed} Care) Extended Release Oral Tablet [Sudafed] Sudafed 24 Hour 240 MG Sudafed 24 K .0 active Sudafed 24 eCW3 Hour 240 MG 2018 {tabl Hour 240 MG ([place] 12:00: et_as [place] 00 AM _need Health EST ed} Care) Sudafed 24 [facility] .0 active Sudafed 24 eCW3 Hour 240 MG 2018 {tabl Hour 240 MG ([place] 12:00: et_as [place] 00 AM _need Health EST ed} Care) Sudafed 24 [facility] .0 active Sudafed 24 eCW3 Hour 240 MG 2018 {tabl Hour 240 MG ([place] 12:00: et_as [place] 00 AM _need Health EST ed} Care) Sudafed 24 [facility] .0 active Sudafed 24 eCW3 Hour 240 MG 2018 {tabl Hour 240 MG ([place] 12:00: et_as [place] 00 AM _need Health EST ed} Care) Sudafed 24 [facility] .0 active Sudafed 24 eCW3 Hour 240 MG 2018 {tabl Hour 240 MG ([place] 12:00: et_as [place] 00 AM _need Health EST ed} Care) 24 HR Sudafe .0 active Sudafed 24 eC W3 Pseudoephed d 2017 {tabl Hour 240 MG ([place] rine Hour 12:00: et_as [place] Hydrochlori 240 MG 00 AM _need Heal th de 240 MG EST ed} Care) Extended Release Oral Tablet [Sudafed] Sudafed 24 Hour 240 MG Loratadine Clarit .0 active Claritin 10 eCW3 10 MG Oral in 2017 {tabl MG ([place] Tablet MG 12:00: et} [place] [Claritin] 00 AM Health Claritin 10 EST Care) MG Loratadine Clarit .0 active Claritin 10 eCW3 10 MG Oral in 2017 {tabl MG ([place] Tablet MG 12:00: et} [place] [Claritin] [address]) MG Loratadine Clarit .0 active Claritin 10 eCW3 10 MG Oral in 2017 {tabl MG ([place] Tablet MG 12:00: et} [place] [Claritin] [address]) MG Loratadine Clarit .0 active Claritin 10 eCW3 10 MG Oral in 2017 {tabl MG ([place] Tablet MG 12:00: et} [place] [Claritin] [address]) MG Loratadine Clarit .0 active Claritin 10 eCW3 10 MG Oral in 2017 {tabl MG ([place] Tablet MG 12:00: et} [place] [Claritin] [address]) MG 24 HR Clarit .0 active Claritin-D eC W3 Loratadine in2017 {tabl 24 Hour ([facility] 10 MG / 24 12:00: et_as 10-240 MG [place] r Pseudoephed Hour 00 AM _need Health [facility] 10-240 EST ed} Care) sulfate 240 MG MG Extended Release Oral Tablet [Claritin-D ] Claritin-D 24 Hour 10-240 MG 24 HR Clarit .0 active Claritin-D eC W3 Loratadine in2017 {tabl 24 Hour ([facility] 10 MG / 24 12:00: et_as 10-240 MG Rive r Pseudoephed Hour 00 AM _need Health rine 10-240 EST ed} Care) sulfate 240 MG MG Extended Release Oral Tablet [Claritin-D ] Claritin-D 24 Hour 10-240 MG 24 HR Clarit .0 active Claritin-D eC W3 Loratadine inD 2017 {tabl 24 Hour ([facility] 10 MG / 24 12:00: et_as 10-240 MG Rive r Pseudoephed Hour 00 AM _need Health rine 10-240 EST ed} Care) sulfate 240 MG MG Extended Release Oral Tablet [Claritin-D ] Claritin-D 24 Hour 10-240 MG Loratadine Clarit .0 active Claritin 10 eCW3 10 MG Oral in 2017 {tabl MG ([place] Tablet MG 12:00: et} [place] [Claritin] [address]) MG Loratadine Clarit .0 active Claritin 10 eCW3 10 MG Oral in 2017 {tabl MG ([place] Tablet MG 12:00: et} [place] [Claritin] [address]) MG Loratadine Clarit .0 active Claritin 10 eCW3 10 MG Oral in 2017 {tabl MG ([place] Tablet MG 12:00: et} [place] [Claritin] [address]) MG Loratadine Clarit .0 active Claritin 10 eCW3 10 MG Oral in 2017 {tabl MG ([place] Tablet MG 12:00: et} [place] [Claritin] [address]) MG 24 HR Clarit .0 active Claritin-D eC W3 Loratadine in-2017 {tabl 24 Hour ([facility] 10 MG / 24 12:00: et_as 10-240 MG Rive r Pseudoephed Hour 00 AM _need Health rine 10-240 EST ed} Care) sulfate 240 MG MG Extended Release Oral Tablet [Claritin-D ] Claritin-D 24 Hour 10-240 MG 24 HR Clarit .0 active Claritin-D eC W3 Loratadine in-D 2017 {tabl 24 Hour ([facility] 10 MG / 24 12:00: et_as 10-240 MG Rive r Pseudoephed Hour 00 AM _need Health rine 10-240 EST ed} Care) sulfate 240 MG MG Extended Release Oral Tablet [Claritin-D ] Claritin-D 24 Hour 10-240 MG 24 HR Clarit .0 active Claritin-D eC W3 Loratadine in-D 2017 {tabl 24 Hour ([facility] 10 MG / 24 12:00: et_as 10-240 MG Rive r Pseudoephed Hour 00 AM _need Health rine 10-240 EST ed} Care) sulfate 240 MG MG Extended Release Oral Tablet [Claritin-D ] Claritin-D 24 Hour 10-240 MG 24 HR Clarit .0 active Claritin-D eC W3 Loratadine in-D 2017 {tabl 24 Hour ([facility] 10 MG / 24 12:00: et_as 10-240 MG Rive r Pseudoephed Hour 00 AM _need Health rine 10-240 EST ed} Care) sulfate 240 MG MG Extended Release Oral Tablet [Claritin-D ] Claritin-D 24 Hour 10-240 MG Loratadine Clarit .0 active Claritin 10 eCW3 10 MG Oral in 2017 {tabl MG ([place] Tablet MG 12:00: et} [place] [Claritin] 00 AM [facility] 10 EST [facility]) MG Loratadine Clarit .0 active Claritin 10 eCW3 10 MG Oral in 2017 {tabl MG ([place] Tablet MG 12:00: et} [place] [Claritin] 00 AM [facility] Claritin 10 EST [facility]) MG 24 HR Clarit .0 active Claritin-D eC W3 Loratadine in-D 2017 {tabl 24 Hour ([facility] 10 MG / 24 12:00: et_as 10-240 MG Rive r Pseudoephed Hour 00 AM _need Health rine 10-240 EST ed} Care) sulfate 240 MG MG Extended Release Oral Tablet [Claritin-D ] Claritin-D 24 Hour 10-240 MG 24 HR Clarit .0 active Claritin-D eC W3 Loratadine in-D 2017 {tabl 24 Hour ([facility] 10 MG / 24 12:00: et_as 10-240 MG Rive r Pseudoephed Hour 00 AM _need Health rine 10-240 EST ed} Care) sulfate 240 MG MG Extended Release Oral Tablet [Claritin-D ] Claritin-D 24 Hour 10-240 MG Prednisone Predni 2.0 suspend PredniS ONE eCW3 20 MG Oral SONE 2017 {tabl ed 20 mg ([place] Tablet 20 mg 12:00: ets} [place] PredniSONE 00 AM Health 20 mg EDT Care) Prednisone Predni 2.0 suspend PredniS ONE eCW3 20 MG Oral SONE 2017 {tabl ed 20 mg ([place] Tablet 20 mg 12:00: ets} [place] PredniSONE 00 AM Health 20 mg EDT Care) Prednisone Predni 2.0 suspend PredniS ONE eCW3 20 MG Oral SONE 2018 {tabl ed 20 mg ([place] Tablet 20 mg 12:00: ets} [place] PredniSONE 00 AM Health 20 mg EDT Care) Prednisone Predni 06/22/ 2.0 suspend PredniS ONE eCW3 20 MG Oral SONE 2018 {tabl ed 20 mg ([place] Tablet 20 mg 12:00: ets} [place] PredniSONE 00 AM Health 20 mg EDT Care) benzonatate Tessal 06/18/ active 1 capsu le as eCW2 100 MG Oral on 2017 needed ([facility] Capsule Perles 12:00: [place] [Tessalon 100 mg 00 AM Health Perles] EDT Care) Tessalon Perles 100 mg Dextrometho Guaife 06/16/ active 10 ml a s eCW2 rphan nesin- 2017 needed ([place] Hydrobromid DM 12:00: [place] e 2 MG/ML / 100-10 00 AM Healt h Guaifenesin MG/5ML EDT Care) 20 MG/ML Oral Solution Guaifenesin -DM 100-10 MG/5ML Naproxen Naprox active 1 tablet e CW2 500 MG Oral en 500 2017 with food o r ([place] Tablet MG 12:00: milk as [place] 00 AM needed Health EDT Care) Diphenhydra Diphen 04/04/ suspend 1 tabl et as eCW2 mine hydrAM 2017 ed needed ([place] Hydrochlori INE 12:00: [place] de 25 MG HCl 25 00 AM Health Oral Tablet MG EDT Care) DiphenhydrA MINE HCl 25 MG Diphenhydra Diphen 04/04/ suspend 1 tabl et as eCW2 mine hydrAM 2017 ed needed ([place] Hydrochlori INE 12:00: [place] de 25 MG HCl 25 00 AM Health Oral Tablet MG EDT Care) DiphenhydrA MINE HCl 25 MG Ketotifen Zadito 03/21/ 1.0 active Zaditor e CW3 0.25 MG/ML r 2018 {drop 0.025 % ([facility] 0.025 12:00: _into [place] Solution % 00 AM [facility] [Zaditor] EDT cted_ Care) Zaditor eye} 0.025 % Ketotifen Zadito 03/21/ active 1 drop in to eCW2 0.25 MG/ML r 2018 affected eye ( [facility] 0.025 12:00: [place] Solution % 00 AM Health [Zaditor] EDT Care) Zaditor 0.025 % Prednisone Predni 03/21/ suspend 1 table t eCW2 20 MG Oral SONE 2018 ed ([place] Tablet 20 mg 12:00: [place] PredniSONE 00 AM Health 20 mg EDT Care) Ketotifen Zadito .0 active Zaditor e CW3 0.25 MG/ML r 2018 {drop 0.025 % ([facility] 0.025 12:00: _into [place] Solution % 00 AM _[facility] [Zaditor] EDT cted_ Care) Zaditor eye} 0.025 % Prednisone Predni 03/21/ suspend 1 table t eCW2 20 MG Oral SONE 2018 ed ([place] Tablet 20 mg 12:00: [place] PredniSONE 00 AM Health 20 mg EDT Care) Ketotifen Zadito 1.0 active Zaditor e CW3 0.25 MG/ML r 2018 {drop 0.025 % ([facility] 0.025 12:00: _into [place] Solution % 00 AM [facility] [Zaditor] EDT cted_ Care) Zaditor eye} 0.025 % Ketotifen Zadito 1.0 active Zaditor e CW3 0.25 MG/ML r 2018 {drop 0.025 % ([facility] 0.025 12:00: _into [place] Solution % 00 AM [facility] [Zaditor] EDT cted_ Care) Zaditor eye} 0.025 % Ketotifen Zadito 1.0 active Zaditor e CW3 0.25 MG/ML r 2018 {drop 0.025 % ([facility] 0.025 12:00: _into [place] Solution % 00 AM [facility] [Zaditor] EDT cted_ Care) Zaditor eye} 0.025 % Ketotifen Zadito 1.0 active Zaditor e CW3 0.25 MG/ML r 2018 {drop 0.025 % ([facility] 0.025 12:00: _into [place] Solution % 00 AM [facility] [Zaditor] EDT cted_ Care) Zaditor eye} 0.025 % Ketotifen Zadito 03/21/ active 1 drop in to eCW2 0.25 MG/ML r 2018 affected eye ( [facility] 0.025 12:00: [place] Solution % 00 AM Health [Zaditor] EDT Care) Zaditor 0.025 % Ketotifen Zadito 1.0 active Zaditor e CW3 0.25 MG/ML r 2018 {drop 0.025 % ([facility] 0.025 12:00: _into [place] Solution % 00 AM [facility] [Zaditor] EDT cted_ Care) Zaditor eye} 0.025 % Ketotifen Zadito 1.0 active Zaditor e CW3 0.25 MG/ML r 2018 {drop 0.025 % ([facility] 0.025 12:00: _into [place] Solution % 00 AM [facility] [Zaditor] EDT cted_ Care) Zaditor eye} 0.025 % Ketotifen Zadito 1.0 active Zaditor e CW3 0.25 MG/ML r 2018 {drop 0.025 % ([facility] 0.025 12:00: _into [place] Solution % 00 AM [facility] [Zaditor] EDT cted_ Care) Zaditor eye} 0.025 % Ketotifen Zadito 1.0 active Zaditor e CW3 0.25 MG/ML r 2018 {drop 0.025 % ([facility] 0.025 12:00: _into [place] Solution % 00 AM [facility] [Zaditor] EDT cted_ Care) Zaditor eye} 0.025 % Ketotifen Zadito 1.0 active Zaditor e CW3 0.25 MG/ML r 2018 {drop 0.025 % ([facility] 0.025 12:00: _into [place] Solution % 00 AM [facility] [Zaditor] EDT cted_ Care) Zaditor eye} 0.025 % Ketotifen Zadito 1.0 active Zaditor e CW3 0.25 MG/ML r 2018 {drop 0.025 % ([facility] 0.025 12:00: _into [place] Solution % 00 AM [facility] [Zaditor] EDT cted_ Care) Zaditor eye} 0.025 % Ketotifen Zadito .0 active Zaditor e CW3 0.25 MG/ML r 2018 {drop 0.025 % ([facility] 0.025 12:00: _into [place] Solution % 00 AM [facility] [Zaditor] EDT cted_ Care) Zaditor eye} 0.025 % Ketotifen Zadito .0 active Zaditor e CW3 0.25 MG/ML r 2018 {drop 0.025 % ([facility] 0.025 12:00: _into [place] Solution % 00 AM [facility] [Zaditor] EDT cted_ Care) Zaditor eye} 0.025 % Ketotifen Zadito .0 active Zaditor e CW3 0.25 MG/ML r 2018 {drop 0.025 % ([facility] 0.025 12:00: _into [place] Solution % 00 AM [facility] [Zaditor] EDT cted_ Care) Zaditor eye} 0.025 % Ranitidine Raniti 12/02/ active 1 tablet as eCW2 150 MG Oral dine 2018 needed ([facility] Tablet HCl 12:00: [place] Ranitidine 150 MG 00 AM Health HCl 150 MG EDT Care) Ranitidine UNK .0 active Ranitidine eCW3 HCl 150 MG 2018 {tabl HCl 150 MG (H udson 12:00: et_as [place] 00 AM _need Health EDT ed} Care) Ranitidine Raniti .0 active Ranitidi ne eCW3 150 MG Oral dine 2018 {tabl HCl 150 MG ( [place] Tablet HCl 12:00: et_as [place] Ranitidine 150 MG 00 AM _need Healt h HCl 150 MG EDT ed} Care) Ranitidine Raniti 1.0 active Ranitidi ne eCW3 150 MG Oral dine 2018 {tabl HCl 150 MG ( [place] Tablet HCl 12:00: et_as [place] Ranitidine 150 MG 00 AM _need Healt h HCl 150 MG EDT ed} Care) Ranitidine Raniti .0 active Ranitidi ne eCW3 150 MG Oral dine 2018 {tabl HCl 150 MG ( [place] Tablet HCl 12:00: [facility] [place] Ranitidine 150 MG 00 AM _need Healt h HCl 150 MG EDT ed} Care) Ranitidine Raniti .0 active Ranitidi ne eCW3 150 MG Oral dine 2018 {tabl HCl 150 MG ( [place] Tablet HCl 12:00: [facility] [place] Ranitidine 150 MG 00 AM _need Healt h HCl 150 MG EDT ed} Care) Ranitidine Raniti 12/02/ active 1 tablet as eCW2 150 MG Oral dine 2018 needed ([place] Tablet HCl 12:00: [place] Ranitidine 150 MG 00 AM Health HCl 150 MG EDT Care) Ranitidine Raniti .0 active Ranitidi ne eCW3 150 MG Oral dine 2018 {tabl HCl 150 MG ( [place] Tablet HCl 12:00: [facility] [place] Ranitidine 150 MG 00 AM _need Healt h HCl 150 MG EDT ed} Care) Ranitidine UNK .0 active Ranitidine eCW3 HCl 150 MG 2018 {tabl HCl 150 MG (H udson 12:00: [facility] [place] 00 AM _need Health EDT ed} Care) Ranitidine Raniti .0 active Ranitidi ne eCW3 150 MG Oral dine 2018 {tabl HCl 150 MG ( [place] Tablet HCl 12:00: [facility] [place] Ranitidine 150 MG 00 AM _need Healt h HCl 150 MG EDT ed} Care) Ranitidine UNK .0 active Ranitidine eCW3 HCl 150 MG 2018 {tabl HCl 150 MG (H udson 12:00: [facility] [place] 00 AM _need Health EDT ed} Care) Ranitidine Raniti .0 active Ranitidi ne eCW3 150 MG Oral dine 2018 {tabl HCl 150 MG ( [place] Tablet HCl 12:00: et_as [place] Ranitidine 150 MG 00 AM _need Healt h HCl 150 MG EDT ed} Care) Ranitidine Raniti .0 active Ranitidi ne eCW3 150 MG Oral dine 2018 {tabl HCl 150 MG ( [place] Tablet HCl 12:00: et_as [place] Ranitidine 150 MG 00 AM _need Healt h HCl 150 MG EDT ed} Care) Ranitidine Raniti .0 active Ranitidi ne eCW3 150 MG Oral dine 2018 {tabl HCl 150 MG ( [place] Tablet HCl 12:00: et_as [place] Ranitidine 150 MG 00 AM _need Healt h HCl 150 MG EDT ed} Care) Ranitidine Raniti .0 active Ranitidi ne eCW3 150 MG Oral dine 2018 {tabl HCl 150 MG ( [place] Tablet HCl 12:00: et_as [place] Ranitidine 150 MG 00 AM _need Healt h HCl 150 MG EDT ed} Care) Ranitidine Raniti .0 active Ranitidi ne eCW3 150 MG Oral dine 2018 {tabl HCl 150 MG ( [place] Tablet HCl 12:00: et_as [place] Ranitidine 150 MG 00 AM _need Healt h HCl 150 MG EDT ed} Care) Ranitidine Raniti .0 active Ranitidi ne eCW3 150 MG Oral dine 2018 {tabl HCl 150 MG ( [place] Tablet HCl 12:00: et_as [place] Ranitidine 150 MG 00 AM _need Healt h HCl 150 MG EDT ed} Care) Diclofenac Diclof 11/12/ suspend 1 table t eCW2 Sodium 75 enac 2017 ed with food or (H ud[facility] MG Delayed Sodium 12:00: milk [facility] Release 75 MG 00 AM Health Oral Tablet EST Care) Diclofenac Diclof 11/12/ suspend 1 table t eCW2 Sodium 75 enac 2017 ed with food or ([facility] ud[facility] MG Delayed Sodium 12:00: milk [place] Release 75 MG 00 AM Health Oral Tablet EST Care) DayQuil UNK 08/05/ 2.0 suspend DayQuil eCW3 Multi-Sympt 2017 {caps ed Multi-Sympto ([place] om Cold/Flu 12:00: ules_ m Cold/Flu [place] 30-325-15 00 AM as_ne 30-325-15 MG Health MG EST eded} Care) DayQuil UNK 08/05/ suspend 2 capsules e CW2 Multi-Sympt 2017 ed as needed ([facility] om Cold/Flu 12:00: [place] 30-325-15 00 AM Health MG EST Care) DayQuil UNK 08/05/ 2.0 suspend DayQuil eCW3 Multi-Sympt 2017 {caps ed Multi-Sympto ([place] om Cold/Flu 12:00: ules_ m Cold/Flu [place] 30-325-15 00 AM as_ne 30-325-15 MG Health MG EST eded} Care) DayQuil UNK 08/05/ suspend 2 capsules e CW2 Multi-Sympt 2017 ed as needed ([facility] om Cold/Flu 12:00: [place] 30-325-15 00 AM Health MG EST Care) DayQuil UNK 08/05/ 2.0 suspend DayQuil eCW3 Multi-Sympt 2017 {caps ed Multi-Sympto ([place] om Cold/Flu 12:00: ules_ m Cold/Flu [place] 30-325-15 00 AM as_ne 30-325-15 MG Health MG EST eded} Care) DayQuil UNK 08/05/ 2.0 suspend DayQuil eCW3 Multi-Sympt 2017 {caps ed Multi-Sympto ([place] om Cold/Flu 12:00: ules_ m Cold/Flu [facility] 30-325-15 00 AM as_ne 30-325-15 MG Health MG EST eded} Care) Prednisone Predni 07/31/ suspend 2 table t eCW2 20 MG Oral SONE 2017 ed ([place] Tablet 20 mg 12:00: [place] PredniSONE 00 AM Health 20 mg EST Care) Prednisone Predni 07/31/ suspend 2 table t eCW2 20 MG Oral SONE 2017 ed ([place] Tablet 20 mg 12:00: [place] PredniSONE 00 AM Health 20 mg EST Care) PredniSONE UNK 07/16/ suspend 1 tablet eCW2 40 mg 2017 ed ([place] 12:00: [place] 00 AM Health EST Care) PredniSONE UNK 07/16/ suspend 1 tablet eCW2 40 mg 2017 ed ([place] 12:00: [facility] 00 AM Health EST Care) Heating Pad Heatin 06/24/ active Heating Pad eCW3 - g Pad 2017 - ([place] - 12:00: [facility] 00 AM Health EDT Care) Heating Pad Heatin 10/19/ active Heating Pad eCW3 - g Pad 2017 - ( - 12:00: [place] 00 AM Health EDT Care) Heating Pad Heatin 10/19/ active Heating Pad eCW3 - g Pad 2017 - ( - 12:00: [place] 00 AM Health EDT Care) Heating Pad Heatin 10/19/ active Heating Pad eCW3 - g Pad 2017 - ( - 12:00: [place] 00 AM Health EDT Care) Heating Pad Heatin 10/19/ active Heating Pad eCW3 - g Pad 2017 - ([place] - 12:00: [facility] 00 AM Health EDT Care) Heating Pad Heatin 10/19/ active Heating Pad eCW3 - g Pad 2017 - ( - :00: [facility] 00 AM Health EDT Care) Heating Pad Heatin 10/19/ active Heating Pad eCW3 - g Pad 2017 - ( - :00: [facility] 00 AM Health EDT Care) Heating Pad Heatin 10/19/ active Heating Pad eCW3 - g Pad 2017 - ( - :00: [place] 00 AM Health EDT Care) Heating Pad Heatin 10/19/ active Heating Pad eCW3 - g Pad 2017 - ( - :00: [facility] 00 AM Health EDT Care) Heating Pad Heatin 10/19/ active Heating Pad eCW3 - g Pad 2017 - ( - :00: [facility] 00 AM Health EDT Care) Heating Pad Heatin 10/19/ suspend as dir ected eCW2 - g Pad 2016 ed ( - 12:00: [facility] 00 AM Health EDT Care) Heating Pad Heatin 10/19/ active Heating Pad eCW3 - g Pad 2017 - ([place] - 12:00: [facility] 00 AM Health EDT Care) Heating Pad Heatin 10/19/ active Heating Pad eCW3 - g Pad 2017 - ([place] - 12:00: [place] 00 AM Health EDT Care) Heating Pad Heatin 10/19/ active Heating Pad eCW3 - g Pad 2017 - ([place] - 12:00: [place] 00 AM Health EDT Care) Heating Pad Heatin 10/19/ active Heating Pad eCW3 - g Pad 2017 - ([place] - 12:00: [place] 00 AM Health EDT Care) Heating Pad Heatin 06/24/ suspend as dir ected eCW2 - g Pad 2017 ed ([place] - 12:00: [place] 00 AM Health EDT Care) Heating Pad Heatin 06/24/ active Heating Pad eCW3 - g Pad 2017 - ([place] - 12:00: [facility] 00 AM Health EDT Care) Docusate Docusa 06/07/ active 1 capsule as eCW2 Sodium 100 te 2017 needed ([place] MG Oral Sodium 12:00: [place] Capsule 100 mg 00 AM Health Docusate EDT Care) Sodium 100 mg Docusate Docusa 06/07/ active 1 capsule as eCW2 Sodium 100 te 2017 needed ([place] MG Oral Sodium 12:00: [place] Capsule 100 mg 00 AM Health Docusate EDT Care) Sodium 100 mg Prednisone Predni 04/09/ suspend 2 table ts eCW2 20 MG Oral SONE 2017 ed ([place] Tablet 20 mg 12:00: [place] PredniSONE 00 AM Health 20 mg EDT Care) Prednisone Predni 04/09/ suspend 2 table ts eCW2 20 MG Oral SONE 2017 ed ([place] Tablet 20 mg 12:00: [place] PredniSONE 00 AM Health 20 mg EDT Care) cetirizine ZyrTEC .0 active ZyrTEC e CW3 hydrochlori Allerg 2017 {tabl Allergy 10 ([place] de 10 MG y 10 12:00: et} mg [place] Oral Tablet mg 00 AM Health [Zyrtec] EDT Care) ZyrTEC Allergy 10 mg cetirizine ZyrTEC .0 active ZyrTEC e CW3 hydrochlori Allerg 2017 {tabl Allergy 10 ([place] de 10 MG y 10 12:00: et} mg [place] Oral Tablet mg 00 AM Health [Zyrtec] EDT Care) ZyrTEC Allergy 10 mg cetirizine ZyrTEC .0 active ZyrTEC e CW3 hydrochlori Allerg 2017 {tabl Allergy 10 ([place] de 10 MG y 10 12:00: et} mg [place] Oral Tablet mg 00 AM Health [Zyrtec] EDT Care) ZyrTEC Allergy 10 mg cetirizine ZyrTEC .0 active ZyrTEC e CW3 hydrochlori Allerg 2017 {tabl Allergy 10 ([place] de 10 MG y 10 12:00: et} mg [place] Oral Tablet mg 00 AM Health [[facility]] EDT Care) ZyrTEC Allergy 10 mg ZyrTEC ZyrTEC 04/06/ active 1 tablet eCW 2 Allergy 10 Allerg 2017 ([place] mg y 10 12:00: [place] mg 00 AM Health EDT Care) ZyrTEC ZyrTEC 04/06/ active 1 tablet eCW 2 Allergy 10 Allerg 2016 ([place] mg y 10 12:00: [place] mg 00 AM Health EDT Care) ZyrTEC ZyrTEC 04/06/ active 1 tablet eCW 2 Allergy 10 Allerg 2016 ([place] mg y 10 12:00: [place] mg 00 AM Health EDT Care) cetirizine ZyrTEC .0 active ZyrTEC e CW3 hydrochlori Allerg 2017 {tabl Allergy 10 ([place] de 10 MG y 10 12:00: et} mg [place] Oral Tablet mg 00 AM Health [[facility]] EDT Care) ZyrTEC Allergy 10 mg cetirizine ZyrTEC .0 active ZyrTEC e CW3 hydrochlori Allerg 2017 {tabl Allergy 10 ([place] de 10 MG y 10 12:00: et} mg [place] Oral Tablet mg 00 AM Health [[facility]] EDT Care) ZyrTEC Allergy 10 mg cetirizine ZyrTEC .0 active ZyrTEC e CW3 hydrochlori Allerg 2017 {tabl Allergy 10 ([place] de 10 MG y 10 12:00: et} mg [place] Oral Tablet mg 00 AM Health [[facility]] EDT Care) ZyrTEC Allergy 10 mg ZyrTEC ZyrTEC 04/06/ active 1 tablet eCW 2 Allergy 10 Allerg 2017 ([place] mg y 10 12:00: [place] mg 00 AM Health EDT Care) cetirizine ZyrTEC .0 active ZyrTEC e CW3 hydrochlori Allerg 2017 {tabl Allergy 10 ([place] de 10 MG y 10 12:00: et} mg [place] Oral Tablet mg 00 AM Health [[facility]] EDT Care) ZyrTEC Allergy 10 mg cetirizine ZyrTEC .0 active ZyrTEC e CW3 hydrochlori Allerg 2017 {tabl Allergy 10 ([place] de 10 MG y 10 12:00: et} mg [place] Oral Tablet mg 00 AM Health [Zyrtec] EDT Care) ZyrTEC Allergy 10 mg 12 HR Mucine 1.0 suspend Mucinex DM e CW3 Dextrometho x DM 2017 {tabl ed Maximum ([facility] rphan Maximu 12:00: et_as Strength [place] Hydrobromid m 00 AM _need 60-1200 MG Health e 60 MG / Streng EDT ed} Care) Guaifenesin th 1200 MG 60-120 Extended 0 MG Release Oral Tablet [Mucinex DM] Mucinex DM Maximum Strength 60-1200 MG 12 HR Mucine 03/04/ suspend 1 tablet as eCW2 Dextrometho x DM 2017 ed needed ([facility] rphan Maximu 12:00: [place] Hydrobromid m 00 AM Health e 60 MG / Streng EDT Care) Guaifenesin th 1200 MG 60-120 Extended 0 MG Release Oral Tablet [Mucinex DM] Mucinex DM Maximum Strength 60-1200 MG 12 HR Mucine 1.0 suspend Mucinex DM e CW3 Dextrometho x DM 2016 {tabl ed Maximum ([facility] rphan Maximu 12:00: et_as Strength [place] Hydrobromid m 00 AM _need 60-1200 MG Health e 60 MG / Streng EDT ed} Care) Guaifenesin th 1200 MG 60-120 Extended 0 MG Release Oral Tablet [Mucinex DM] Mucinex DM Maximum Strength 60-1200 MG 12 HR Mucine 1.0 suspend Mucinex DM e CW3 Dextrometho x DM 2017 {tabl ed Maximum ([facility] rphan Maximu 12:00: et_as Strength [place] Hydrobromid m 00 AM _need 60-1200 MG Health e 60 MG / Streng EDT ed} Care) Guaifenesin th 1200 MG 60-120 Extended 0 MG Release Oral Tablet [Mucinex DM] Mucinex DM Maximum Strength 60-1200 MG 12 HR Mucine 1.0 suspend Mucinex DM e CW3 Dextrometho x DM 2017 {tabl ed Maximum ([facility] rphan Maximu 12:00: et_as Strength [place] Hydrobromid m 00 AM _need 60-1200 MG Health e 60 MG / Streng EDT ed} Care) Guaifenesin th 1200 MG 60-120 Extended 0 MG Release Oral Tablet [Mucinex DM] Mucinex DM Maximum Strength 60-1200 MG 12 HR Mucine 03/04/ suspend 1 tablet as eCW2 Dextrometho x DM 2016 ed needed ([facility] kevin Maximu 12:00: [place] Hydrobromid m 00 AM Health e 60 MG / Streng EDT Care) Guaifenesin th 1200 MG 60-120 Extended 0 MG Release Oral Tablet [Mucinex DM] Mucinex DM Maximum Strength 60-1200 MG Knee Knee 02/26/ suspend Knee eCW3 Brace/Flex Brace/ 2016 ed Brace/Flex ( [place] Stays Large Flex 12:00: Stays Large [place] - Stays 00 AM - Health Large EDT Care) - Knee Knee 02/26/ suspend Knee eCW3 Brace/Flex Brace/ 2016 ed Brace/Flex ( [place] Stays Large Flex 12:00: Stays Large [place] - Stays 00 AM - Health Large EDT Care) - Knee Knee 02/26/ suspend Knee eCW3 Brace/Flex Brace/ 2016 ed Brace/Flex ( [place] Stays Large Flex 12:00: Stays Large [place] - Stays 00 AM - Health [facility] EDT Care) - Knee Knee 02/26/ suspend as directed eCW 2 Brace/Flex Brace/ 2016 ed ([place] Stays Large Flex 12:00: [place] - Stays 00 AM Health [facility] EDT Care) - Knee Knee 02/26/ suspend as directed eCW 2 Brace/Flex Brace/ 2016 ed ([place] Stays Large Flex 12:00: [place] - Stays 00 AM Health Large EDT Care) - Knee Knee 02/26/ suspend Knee eCW3 Brace/Flex Brace/ 2016 ed Brace/Flex ( [place] Stays Large Flex 12:00: Stays Large [place] - Stays 00 AM - Health Large EDT Care) - Sudafed 30 Sudafe 01/28/ suspend 1 table t as eCW2 MG d 2016 ed needed ([place] MG 12:00: [place] 00 AM Health EDT Care) Sudafed 30 Sudafe 01/28/ suspend 1 table t as eCW2 MG d 2016 ed needed ([place] MG 12:00: [place] 00 AM Health EDT Care) Flonase Flonas 04/05/ 1.0 active Flonase eCW 3 Allergy e 2017 {spra Allergy ([place] Relief 50 Allerg 12:00: y_in_ Relief 50 [place] MCG/ACT y 00 AM each_ MCG/ACT Health Relief EDT nostr Care) 50 il} MCG/AC T Flonase Flonas 04/05/ 1.0 active Flonase eCW 3 Allergy e 2017 {spra Allergy ([place] Relief 50 Allerg 12:00: y_in_ Relief 50 [place] MCG/ACT y 00 AM each_ MCG/ACT Health Relief EDT nostr Care) 50 il} MCG/AC T Flonase Flonas 04/05/ active 1 spray in eCW2 Allergy e 2017 each nostril ([facility] son Relief 50 Allerg 12:00: [place] MCG/ACT y 00 AM Health Relief EDT Care) 50 MCG/AC T Flonase Flonas 04/05/ 1.0 active Flonase eCW 3 Allergy e 2017 {spra Allergy ([place] Relief 50 Allerg 12:00: y_in_ Relief 50 [place] MCG/ACT y 00 AM each_ MCG/ACT Health Relief EDT nostr Care) 50 il} MCG/AC T Flonase Flonas 04/05/ 1.0 active Flonase eCW 3 Allergy e 2017 {spra Allergy ([place] Relief 50 Allerg 12:00: y_in_ Relief 50 [place] MCG/ACT y 00 AM each_ MCG/ACT Health Relief EDT nostr Care) 50 il} MCG/AC T Flonase Flonas 04/05/ active 1 spray in eCW2 Allergy e 2017 each nostril ([facility] Relief 50 Allerg 12:00: [place] MCG/ACT y 00 AM Health Relief EDT Care) 50 MCG/AC T 200 ACTUAT VENTOL 09/11/ AEROSOL 1 complet VENT MICHAEL HFA MEDGEN (St Albuterol IN 2017 ed Kwame's 0.09 HFA:74 12:00: Medical, MG/ACTUAT 5679 00 AM PC) Metered EST Dose Inhaler VENTOLIN [id number] ALBUTEROL UNK 06/01/ suspend ALBUTEROL eCW3 SULFATE 2016 ed SULFATE ([place] 0.083% 2.5 12:00: 0.083% 2.5 R iver mg/3 ml 00 AM mg/3 ml Health EDT Care) Albuterol UNK 06/01/ suspend 3 ml as eC W2 Sulfate 2016 ed needed for ([facility] (0.083% 2.5 12:00: cough or Ri shu mg/3 ml) 00 AM difficulty Heal th 0.083% 2.5 EDT breathing Care ) mg/3 ml ALBUTEROL UNK 06/01/ suspend ALBUTEROL eCW3 SULFATE 2015 ed SULFATE ([place] 0.083% 2.5 12:00: 0.083% 2.5 R iver mg/3 ml 00 AM mg/3 ml Health EDT Care) ALBUTEROL UNK 06/01/ suspend ALBUTEROL eCW3 SULFATE 2015 ed SULFATE ([place] 0.083% 2.5 12:00: 0.083% 2.5 R iver mg/3 ml 00 AM mg/3 ml Health EDT Care) Albuterol UNK 06/01/ suspend 3 ml as eC W2 Sulfate 2015 ed needed for ([facility] (0.083% 2.5 12:00: cough or Ri shu mg/3 ml) 00 AM difficulty Heal th 0.083% 2.5 EDT breathing Care ) mg/3 ml ALBUTEROL UNK 06/01/ suspend ALBUTEROL eCW3 SULFATE 2015 ed SULFATE ([place] 0.083% 2.5 12:00: 0.083% 2.5 R iver mg/3 ml 00 AM mg/3 ml Health EDT Care) AEROCHAMBER UNK 11/27/ suspend AEROCHAM KEAGAN eCW3 1 2016 ed 1 ([place] 12:00: [place] 00 AM Health EDT Care) Aerochamber UNK 11/27/ suspend as direc robby eCW2 1 2016 ed ([place] 12:00: [place] 00 AM Health EDT Care) AEROCHAMBER UNK 11/27/ suspend AEROCHAM KEAGAN eCW3 1 2016 ed 1 ([place] 12:00: [place] 00 AM Health EDT Care) AEROCHAMBER UNK 11/27/ suspend AEROCHAM KEAGAN eCW3 1 2016 ed 1 ([place] 12:00: [place] 00 AM Health EDT Care) Aerochamber UNK 11/27/ suspend as direc robby eCW2 1 2016 ed ([place] 12:00: [place] 00 AM Health EDT Care) AEROCHAMBER UNK 11/27/ suspend AEROCHAM KEAGAN eCW3 1 2016 ed 1 ([place] 12:00: [place] 00 AM Health EDT Care) humidifier UNK 09/17/ suspend humidifie r eCW3 2016 ed ([place] 12:00: [place] 00 AM Health EST Care) humidifier UNK 09/17/ suspend as direct ed eCW2 2016 ed ([place] 12:00: [place] 00 AM Health EST Care) humidifier UNK 09/17/ suspend humidifie r eCW3 2016 ed ([place] 12:00: [place] 00 AM Health EST Care) humidifier UNK 09/17/ suspend humidifie r eCW3 2016 ed ([place] 12:00: [place] 00 AM Health EST Care) humidifier UNK 09/17/ suspend humidifie r eCW3 2016 ed ([place] 12:00: [place] 00 AM Health EST Care) humidifier UNK 09/17/ suspend as direct ed eCW2 2016 ed ([place] 12:00: [place] 00 AM Health EST Care) Nebulizer 1 UNK 03/16/ active Nebulizer 1 eCW3 2014 ([place] 12:00: [place] 00 AM Health EDT Care) Nebulizer 1 UNK 03/16/ active Nebulizer 1 eCW3 2014 ([place] 12:00: [place] 00 AM Health EDT Care) Nebulizer 1 UNK 03/16/ active Nebulizer 1 eCW3 2014 ([place] 12:00: [place] 00 AM Health EDT Care) Nebulizer 1 UNK 03/16/ active Nebulizer 1 eCW3 2014 ([place] 12:00: [place] 00 AM Health EDT Care) Nebulizer 1 UNK 03/16/ active Nebulizer 1 eCW3 2014 ([place] 12:00: [place] 00 AM Health EDT Care) Nebulizer 1 UNK 03/16/ active Nebulizer 1 eCW3 2014 ([place] 12:00: [place] 00 AM Health EDT Care) Nebulizer 1 UNK 03/16/ suspend as direc robby eCW2 2015 ed ([place] 12:00: [place] 00 AM Health EDT Care) Nebulizer 1 UNK 03/16/ active Nebulizer 1 eCW3 2014 ([place] 12:00: [place] 00 AM Health EDT Care) Nebulizer 1 UNK 11/19/ active Nebulizer 1 eCW3 2014 ([place] 12:00: [place] 00 AM Health EDT Care) Nebulizer 1 UNK 16/ active Nebulizer 1 eCW3 2014 ([place] 12:00: [place] 00 AM Health EDT Care) Nebulizer 1 UNK 11/19/ suspend as direc robby eCW2 2014 ed ([place] 12:00: [place] 00 AM Health EDT Care) Nebulizer 1 UNK 11/19/ active Nebulizer 1 eCW3 2014 ([place] 12:00: [place] 00 AM Health EDT Care) Nebulizer 1 UNK 11/19/ active Nebulizer 1 eCW3 2014 ([place] 12:00: [place] 00 AM Health EDT Care) Nebulizer 1 UNK 16/ active Nebulizer 1 eCW3 2014 ([place] 12:00: [place] 00 AM Health EDT Care) Nebulizer 1 UNK 16/ active Nebulizer 1 eCW3 2014 ([place] 12:00: [place] 00 AM Health EDT Care) Nebulizer 1 UNK 11/19/ active Nebulizer 1 eCW3 2014 ([place] 12:00: [place] 00 AM Health EDT Care) Nebulizer 1 UNK 16/ active Nebulizer 1 eCW3 2014 ([place] 12:00: [place] 00 AM Health EDT Care) 60 ACTUAT Advair 1.0 active Advair eC W3 Fluticasone Diskus 2013 {puff Diskus (Hu dson propionate 500-50 12:00: } 500-50 Mateusz er 0.5 MCG/DO 00 AM MCG/DOSE Health MG/ACTUAT / SE EDT Care) salmeterol 0.05 MG/ACTUAT Dry Powder Inhaler [Advair] Advair Diskus 500-50 MCG/DOSE 60 ACTUAT Advair 04/12/ active 1 puff eC W2 Fluticasone Diskus 2014 ([facility] propionate 500-50 12:00: [place] 0.5 MCG/DO 00 AM Health MG/ACTUAT / SE EDT Care) salmeterol 0.05 MG/ACTUAT Dry Powder Inhaler [Advair] Advair Diskus 500-50 MCG/DOSE 60 ACTUAT Advair .0 active Advair eC W3 Fluticasone Diskus 2013 {puff Diskus (Hu dson propionate 500-50 12:00: } 500-50 Mateusz er 0.5 MCG/DO 00 AM MCG/DOSE Health MG/ACTUAT / SE EDT Care) salmeterol 0.05 MG/ACTUAT Dry Powder Inhaler [Advair] Advair Diskus 500-50 MCG/DOSE 60 ACTUAT Advair .0 active Advair eC W3 Fluticasone Diskus 2013 {puff Diskus (Hu dson propionate 500-50 12:00: } 500-50 Mateusz er 0.5 MCG/DO 00 AM MCG/DOSE Health MG/ACTUAT / SE EDT Care) salmeterol 0.05 MG/ACTUAT Dry Powder Inhaler [Advair] Advair Diskus 500-50 MCG/DOSE 60 ACTUAT Advair .0 active Advair eC W3 Fluticasone Diskus 2013 {puff Diskus (Hu dson propionate 500-50 12:00: } 500-50 Mateusz er 0.5 MCG/DO 00 AM MCG/DOSE Health MG/ACTUAT / SE EDT Care) salmeterol 0.05 MG/ACTUAT Dry Powder Inhaler [Advair] Advair Diskus 500-50 MCG/DOSE 60 ACTUAT Advair .0 active Advair eC W3 Fluticasone Diskus 2013 {puff Diskus (Hu dson propionate 500-50 12:00: } 500-50 Mateusz er 0.5 MCG/DO 00 AM MCG/DOSE Health MG/ACTUAT / SE EDT Care) salmeterol 0.05 MG/ACTUAT Dry Powder Inhaler [Advair] Advair Diskus 500-50 MCG/DOSE 60 ACTUAT Advair .0 active Advair eC W3 Fluticasone Diskus 2013 {puff Diskus (Hu dson propionate 500-50 12:00: } 500-50 Mateusz er 0.5 MCG/DO 00 AM MCG/DOSE Health MG/ACTUAT / SE EDT Care) salmeterol 0.05 MG/ACTUAT Dry Powder Inhaler [Advair] Advair Diskus 500-50 MCG/DOSE 60 ACTUAT Advair 08/07/ 1.0 active Advair eC W3 Fluticasone Diskus 2013 {puff Diskus (Hu dson propionate 500-50 12:00: } 500-50 Mateusz er 0.5 MCG/DO 00 AM MCG/DOSE Health MG/ACTUAT / SE EDT Care) salmeterol 0.05 MG/ACTUAT Dry Powder Inhaler [Advair] Advair Diskus 500-50 MCG/DOSE 60 ACTUAT Advair .0 active Advair eC W3 Fluticasone Diskus 2013 {puff Diskus (Hu dson propionate 500-50 12:00: } 500-50 Mateusz er 0.5 MCG/DO 00 AM MCG/DOSE Health MG/ACTUAT / SE EDT Care) salmeterol 0.05 MG/ACTUAT Dry Powder Inhaler [Advair] Advair Diskus 500-50 MCG/DOSE 60 ACTUAT Advair .0 active Advair eC W3 Fluticasone Diskus 2013 {puff Diskus (Hu dson propionate 500-50 12:00: } 500-50 Mateusz er 0.5 MCG/DO 00 AM MCG/DOSE Health MG/ACTUAT / SE EDT Care) salmeterol 0.05 MG/ACTUAT Dry Powder Inhaler [Advair] Advair Diskus 500-50 MCG/DOSE 60 ACTUAT Advair .0 active Advair eC W3 Fluticasone Diskus 2013 {puff Diskus (Hu dson propionate 500-50 12:00: } 500-50 Mateusz er 0.5 MCG/DO 00 AM MCG/DOSE Health MG/ACTUAT / SE EDT Care) salmeterol 0.05 MG/ACTUAT Dry Powder Inhaler [Advair] Advair Diskus 500-50 MCG/DOSE 60 ACTUAT Advair .0 active Advair eC W3 Fluticasone Diskus 2013 {puff Diskus (Hu dson propionate 500-50 12:00: } 500-50 Mateusz er 0.5 MCG/DO 00 AM MCG/DOSE Health MG/ACTUAT / SE EDT Care) salmeterol 0.05 MG/ACTUAT Dry Powder Inhaler [Advair] Advair Diskus 500-50 MCG/DOSE 60 ACTUAT Advair .0 active Advair eC W3 Fluticasone Diskus 2013 {puff Diskus (Hu dson propionate 500-50 12:00: } 500-50 Mateusz er 0.5 MCG/DO 00 AM MCG/DOSE Health MG/ACTUAT / SE EDT Care) salmeterol 0.05 MG/ACTUAT Dry Powder Inhaler [Advair] Advair Diskus 500-50 MCG/DOSE 60 ACTUAT Advair 1.0 active Advair eC W3 Fluticasone Diskus 2013 {puff Diskus (Hu dson propionate 500-50 12:00: } 500-50 Mateusz er 0.5 MCG/DO 00 AM MCG/DOSE Health MG/ACTUAT / SE EDT Care) salmeterol 0.05 MG/ACTUAT Dry Powder Inhaler [Advair] Advair Diskus 500-50 MCG/DOSE 60 ACTUAT Advair 1.0 active Advair eC W3 Fluticasone Diskus 2013 {puff Diskus (Hu dson propionate 500-50 12:00: } 500-50 Mateusz er 0.5 MCG/DO 00 AM MCG/DOSE Health MG/ACTUAT / SE EDT Care) salmeterol 0.05 MG/ACTUAT Dry Powder Inhaler [Advair] Advair Diskus 500-50 MCG/DOSE 60 ACTUAT Advair 1.0 active Advair eC W3 Fluticasone Diskus 2013 {puff Diskus (Hu dson propionate 500-50 12:00: } 500-50 Mateusz er 0.5 MCG/DO 00 AM MCG/DOSE Health MG/ACTUAT / SE EDT Care) salmeterol 0.05 MG/ACTUAT Dry Powder Inhaler [Advair] Advair Diskus 500-50 MCG/DOSE 60 ACTUAT Advair 04/12/ active 1 puff eC W2 Fluticasone Diskus 2013 ([facility] propionate 500-50 12:00: [place] 0.5 MCG/DO 00 AM Health MG/ACTUAT / SE EDT Care) salmeterol 0.05 MG/ACTUAT Dry Powder Inhaler [Advair] Advair Diskus 500-50 MCG/DOSE 200 ACTUAT ProAir 07/20/ active 2 puffs eCW2 Albuterol HFA 2012 ([place] 0.09 108 12:00: [place] MG/ACTUAT (90 00 AM Health Metered Base) EST Care) Dose MCG/AC Inhaler T [ProAir] ProAir HFA 108 (90 Base) MCG/ACT 200 ACTUAT ProAir 07/20/ active 2 puffs eCW2 Albuterol HFA 2012 ([place] 0.09 108 12:00: [place] MG/ACTUAT (90 00 AM Health Metered Base) EST Care) Dose MCG/AC Inhaler T [ProAir] ProAir HFA 108 (90 Base) MCG/ACT Hydrochloro Hydroc suspend 1 tablet in eCW2 thiazide 25 hlorot ed the morning ([facility] MG Oral hiazid [place] Tablet e 25 Health MG Care) ferrous Ferrou 1.0 suspend Ferrous eCW3 sulfate 325 s {tabl ed Sulfate 325 ([facility] MG Delayed Sulfat et} (65 Fe) MG R iver Release e 325 Health Oral Tablet (65 Care) Ferrous Fe) MG Sulfate 325 (65 Fe) MG Flonase Flonas 1.0 active Flonase eCW3 Sensimist e {spra Sensimist ([facility] son 27.5 Sensim y_in_ 27.5 [place] MCG/SPRAY ist each_ MCG/SPRAY Heal th 27.5 nostr Care) MCG/SP il} RAY 200 ACTUAT Ventol 2.0 active Ventolin H FA eCW3 Albuterol in HFA {puff 108 (90 (Hud son 0.09 108 s_as_ Base) [place] MG/ACTUAT (90 neede MCG/ACT Health Metered Base) d} Care) Dose MCG/AC Inhaler T [Ventolin] Ventolin HFA 108 (90 Base) MCG/ACT montelukast Singul 1.0 active Singulair 10 eCW3 10 MG Oral air 10 {tabl mg ([facility] Tablet mg et_in [place] [Singulair] _the_ Health Singulair eveni Care) 10 mg ng} montelukast Singul 1.0 active Singulair 10 eCW3 10 MG Oral air 10 {tabl mg ([facility] Tablet mg et_in [place] [Singulair] _the_ Health Singulair eveni Care) 10 mg ng} 200 ACTUAT Ventol 2.0 active Ventolin H FA eCW3 Albuterol in HFA {puff 108 (90 (Hud son 0.09 108 s_as_ Base) [place] MG/ACTUAT (90 neede MCG/ACT Health Metered Base) d} Care) Dose MCG/AC Inhaler T [Ventolin] Ventolin HFA 108 (90 Base) MCG/ACT 7 ACTUAT Incrus suspend Incruse eCW 3 umeclidiniu e ed Ellipta 62.5 (Limon m 0.0625 Ellipt MCG/INH [place] MG/ACTUAT a 62.5 Health Dry Powder MCG/IN Care) Inhaler H [Incruse] Incruse Ellipta 62.5 MCG/INH Omeprazole Omepra 1.0 active Omeprazole eCW3 40 MG zole {caps 40 mg (Limon Delayed 40 mg ule} [facility] Health Oral Care) Capsule Omeprazole 40 mg montelukast Singul 1.0 active Singulair 10 eCW3 10 MG Oral air 10 {tabl mg (Hudso n Tablet mg et_in [place] [Singulair] _the_ Health Singulair eveni Care) 10 mg ng} Astelin 137 UNK active 2 puffs in eCW2 MCG/SPRAY each nostril (H [facility]) olopatadine Patano 1.0 active Patanol 0 .1 eCW3 1 MG/ML l 0.1 {drop % (Limon Ophthalmic % _into [place] Solution _[facility] [Patanol] cted_ Care) Patanol 0.1 eye} % olopatadine Patano 1.0 active Patanol 0 .1 eCW3 1 MG/ML l 0.1 {drop % (Limon Ophthalmic % _into [place] Solution _[facility] [Patanol] cted_ Care) Patanol 0.1 eye} % 200 ACTUAT Ventol 2.0 active Ventolin H FA eCW3 Albuterol in HFA {puff 108 (90 (Hud son 0.09 108 s_as_ Base) [place] MG/ACTUAT (90 neede MCG/ACT Health Metered Base) d} Care) Dose MCG/AC Inhaler T [Ventolin] Ventolin HFA 108 (90 Base) MCG/ACT olopatadine Patano 1.0 active Patanol 0 .1 eCW3 1 MG/ML l 0.1 {drop % (Limon Ophthalmic % _into [place] Solution [facility] [Patanol] cted_ Care) Patanol 0.1 eye} % 200 ACTUAT Ventol suspend 2 puffs a s eCW2 Albuterol in HFA ed needed (Hudso n 0.09 108 [place] MG/ACTUAT (90 Health Metered Base) Care) Dose MCG/AC Inhaler T [Ventolin] Ventolin HFA 108 (90 Base) MCG/ACT Astelin 137 UNK 2.0 active Astelin 137 eCW3 MCG/SPRAY {puff MCG/SPRAY (Hud son s_in_ [facility] each_ Health nostr Care) [place]} Omeprazole Omepra 1.0 active Omeprazole eCW3 40 MG zole {caps 40 mg (Limon Delayed 40 mg ule} [facility] Oral Care) Capsule Omeprazole 40 mg olopatadine Patano 1.0 active Patanol 0 .1 eCW3 1 MG/ML l 0.1 {drop % (Limon Ophthalmic % _into [facility] Solution _[facility] [Patanol] cted_ Care) Patanol 0.1 eye} % montelukast Singul 1.0 active Singulair 10 eCW3 10 MG Oral air 10 {tabl mg ([place] Tablet mg et_in [place] [Singulair] _the_ Health Singulair eveni Care) 10 mg ng} olopatadine Patano active 1 drop in to eCW2 1 MG/ML l 0.1 affected eye (Hu dson Ophthalmic % [facility] Solution [facility] [Patanol] Care) Patanol 0.1 % Astelin 137 UNK 2.0 active Astelin 137 eCW3 MCG/SPRAY {puff MCG/SPRAY (Hud son s_in_ [facility] each_ Health nostr Care) il} ferrous Ferrou suspend 1 tablet eCW 2 sulfate 325 s ed (Limon MG Delayed Sulfat [facility] Release e 325 Health Oral Tablet (65 Care) Ferrous Fe) MG Sulfate 325 (65 Fe) MG 7 ACTUAT Incrus suspend Incruse eCW 3 umeclidiniu e ed Ellipta 62.5 (Limon m 0.0625 Ellipt MCG/INH [place] MG/ACTUAT a 62.5 Health Dry Powder MCG/IN Care) Inhaler H [Incruse] Incruse Ellipta 62.5 MCG/INH olopatadine Patano 1.0 active Patanol 0 .1 eCW3 1 MG/ML l 0.1 {drop % (Limon Ophthalmic % _into [facility] Solution _[facility] [Patanol] cted_ Care) Patanol 0.1 eye} % 200 ACTUAT Ventol 2.0 active Ventolin H FA eCW3 Albuterol in HFA {puff 108 (90 (Hud son 0.09 108 s_as_ Base) [facility] MG/ACTUAT (90 neede MCG/ACT Health Metered Base) d} Care) Dose MCG/AC Inhaler T [Ventolin] Ventolin HFA 108 (90 Base) MCG/ACT montelukast Singul 1.0 active Singulair 10 eCW3 10 MG Oral air 10 {tabl mg ([place] Tablet mg et_in [place] [Singulair] _the_ Health Singulair eveni Care) 10 mg ng} Omeprazole Omepra active 1 capsule eCW2 40 MG zole (Limon Delayed 40 mg [facility] Oral Care) Capsule Omeprazole 40 mg Omeprazole Omepra 1.0 active Omeprazole eCW3 40 MG zole {caps 40 mg (Limon Delayed 40 mg ule} [facility] Health Oral Care) Capsule Omeprazole 40 mg olopatadine Patano active 1 drop in to eCW2 1 MG/ML l 0.1 affected eye (Hu dson Ophthalmic % [facility] [Patanol] Care) Patanol 0.1 % Azelastine Azelas suspend eCW2 HCl 0.1 % jordon ed (Limon HCl [facility] 0.1 % Health Care) Astelin 137 UNK active 2 puffs in eCW2 MCG/SPRAY each nostril (H udson [facility] Care) Flonase Flonas 1.0 active Flonase eCW3 Sensimist e {spra Sensimist (Hud son 27.5 Sensim y_in_ 27.5 [place] MCG/SPRAY ist each_ MCG/SPRAY Heal th 27.5 nostr Care) MCG/SP il} RAY Omeprazole Omepra 1.0 active Omeprazole eCW3 40 MG zole {caps 40 mg (Limon Delayed 40 mg ule} [facility] Health Oral Care) Capsule Omeprazole 40 mg Naproxen Naprox active 1 tablet eCW 2 500 MG Oral en 500 with food o r (Limon Tablet MG milk as [facility] needed Health Care) olopatadine Patano 1.0 active Patanol 0 .1 eCW3 1 MG/ML l 0.1 {drop % (Limon Ophthalmic % _into [facility] Solution _[facility] [Patanol] cted_ Care) Patanol 0.1 eye} % olopatadine Patano 1.0 active Patanol 0 .1 eCW3 1 MG/ML l 0.1 {drop % (Limon Ophthalmic % _into [place] Solution _[facility] [Patanol] cted_ Care) Patanol 0.1 eye} % montelukast Singul 1.0 active Singulair 10 eCW3 10 MG Oral air 10 {tabl mg ([place] Tablet mg et_in [place] [Singulair] _the_ Health Singulair eveni Care) 10 mg ng} olopatadine Patano 1.0 active Patanol 0 .1 eCW3 1 MG/ML l 0.1 {drop % (Limon Ophthalmic % _into [place] Solution _[facility] [Patanol] cted_ Care) Patanol 0.1 eye} % olopatadine Patano 1.0 active Patanol 0 .1 eCW3 1 MG/ML l 0.1 {drop % (Limon Ophthalmic % _into [place] Solution _[facility] [Patanol] cted_ Care) Patanol 0.1 eye} % 7 ACTUAT Incrus suspend 1 PUFF eCW2 umeclidiniu e ed INHALED (Huds on m 0.0625 Ellipt ORALLY DAILY R iver MG/ACTUAT a 62.5 Health Dry Powder MCG/IN Care) Inhaler H [Incruse] Incruse Ellipta 62.5 MCG/INH cetirizine ZyrTEC 1.0 active ZyrTEC eCW 3 hydrochlori Allerg {tabl Allergy 10 (Limon de 10 MG y 10 et} mg [facility] Oral Tablet mg Health [Zyrtec] Care) ZyrTEC Allergy 10 mg Multivitami UNK suspend Multivitam in eCW3 ns 1 ed s 1 ([facility] Care) 200 ACTUAT Ventol 2.0 active Ventolin H FA eCW3 Albuterol in HFA {puff 108 (90 (Hud son 0.09 108 s_as_ Base) [place] MG/ACTUAT (90 neede MCG/ACT Health Metered Base) d} Care) Dose MCG/AC Inhaler T [Ventolin] Ventolin HFA 108 (90 Base) MCG/ACT Omeprazole Omepra 1.0 active Omeprazole eCW3 40 MG zole {caps 40 mg (Limon Delayed 40 mg ule} [facility] Health Oral Care) Capsule Omeprazole 40 mg Hydrochloro Hydroc 1.0 suspend Hydrochl orot eCW3 thiazide 25 hlorot {tabl ed hiazide 25 (Limon MG Oral hiazid et_in MG [place] Tablet e 25 _the_ Health MG morni Care) ng} montelukast Singul 1.0 active Singulair 10 eCW3 10 MG Oral air 10 {tabl mg ([place] n Tablet mg et_in [place] [Singulair] _the_ Health Singulair eveni Care) 10 mg ng} Flonase Flonas 1.0 active Flonase eCW3 Sensimist e {spra Sensimist (Hud son 27.5 Sensim y_in_ 27.5 [place] MCG/SPRAY ist each_ MCG/SPRAY Heal th 27.5 nostr Care) MCG/SP il} RAY olopatadine Patano 1.0 active Patanol 0 .1 eCW3 1 MG/ML l 0.1 {drop % (Limon Ophthalmic % _into [facility] Solution _[facility] [Patanol] cted_ Care) Patanol 0.1 eye} % Astelin 137 UNK 2.0 active Astelin 137 eCW3 MCG/SPRAY {puff MCG/SPRAY (Hud son s_in_ [facility] each_ Health nostr Care) il} montelukast Singul 1.0 active Singulair 10 eCW3 10 MG Oral air 10 {tabl mg ([place] Tablet mg et_in [place] [Singulair] _the_ Health Singulair eveni Care) 10 mg ng} Omeprazole Omepra 1.0 active Omeprazole eCW3 40 MG zole {caps 40 mg (Limon Delayed 40 mg ule} [facility] Health Oral Care) Capsule Omeprazole 40 mg 200 ACTUAT Ventol 2.0 active Ventolin H FA eCW3 Albuterol in HFA {puff 108 (90 (Hud son 0.09 108 s_as_ Base) [place] MG/ACTUAT (90 neede MCG/ACT Health Metered Base) d} Care) Dose MCG/AC Inhaler T [Ventolin] Ventolin HFA 108 (90 Base) MCG/ACT 200 ACTUAT Ventol 2.0 active Ventolin H FA eCW3 Albuterol in HFA {puff 108 (90 (Hud son 0.09 108 s_as_ Base) [place] MG/ACTUAT (90 neede MCG/ACT Health Metered Base) d} Care) Dose MCG/AC Inhaler T [Ventolin] Ventolin HFA 108 (90 Base) MCG/ACT ferrous Ferrou 1.0 suspend Ferrous eCW3 sulfate 325 s {tabl ed Sulfate 325 (Limon MG Delayed Sulfat et} (65 Fe) MG R iver Release e 325 Health Oral Tablet (65 Care) Ferrous Fe) MG Sulfate 325 (65 Fe) MG Multivitami UNK suspend as directe d eCW2 ns 1 ed ([facility]) montelukast Singul active 1 tablet in eCW2 10 MG Oral air 10 the evening (Limon Tablet mg [facility] [Singulair] Health Singulair Care) 10 mg montelukast Singul 1.0 active Singulair 10 eCW3 10 MG Oral air 10 {tabl mg ([place] Tablet mg et_in [place] [Singulair] _the_ Health Singulair eveni Care) 10 mg ng} Omeprazole Omepra 1.0 active Omeprazole eCW3 40 MG zole {caps 40 mg (Limon Delayed 40 mg ule} [facility] Health Oral Care) Capsule Omeprazole 40 mg 200 ACTUAT Ventol 2.0 active Ventolin H FA eCW3 Albuterol in HFA {puff 108 (90 (Hud son 0.09 108 s_as_ Base) [place] MG/ACTUAT (90 neede MCG/ACT Health Metered Base) d} Care) Dose MCG/AC Inhaler T [Ventolin] Ventolin HFA 108 (90 Base) MCG/ACT montelukast Singul 1.0 active Singulair 10 eCW3 10 MG Oral air 10 {tabl mg ([place] Tablet mg et_in [place] [Singulair] _the_ Health Singulair eveni Care) 10 mg ng} Unknown complet eCW2 Medications ed ([facility]) montelukast Singul 1.0 active Singulair 10 eCW3 10 MG Oral air 10 {tabl mg ([place] Tablet mg et_in [place] [Singulair] _the_ Health Singulair eveni Care) 10 mg ng} olopatadine Patano 1.0 active Patanol 0 .1 eCW3 1 MG/ML l 0.1 {drop % (Limon Ophthalmic % _into [facility] Solution _[facility] [Patanol] cted_ Care) Patanol 0.1 eye} % Omeprazole Omepra 1.0 active Omeprazole eCW3 40 MG zole {caps 40 mg (Limon Delayed 40 mg ule} [facility] Oral Care) Capsule Omeprazole 40 mg olopatadine Patano 1.0 active Patanol 0 .1 eCW3 1 MG/ML l 0.1 {drop % (Limon Ophthalmic % _into [place] Solution _[facility] [Patanol] cted_ Care) Patanol 0.1 eye} % 200 ACTUAT Ventol 2.0 active Ventolin H FA eCW3 Albuterol in HFA {puff 108 (90 (Hud son 0.09 108 s_as_ Base) [facility] MG/ACTUAT (90 neede MCG/ACT Health Metered Base) d} Care) Dose MCG/AC Inhaler T [Ventolin] Ventolin HFA 108 (90 Base) MCG/ACT 7 ACTUAT Incrus suspend 1 PUFF eCW2 umeclidiniu e ed INHALED (Huds on m 0.0625 Ellipt ORALLY DAILY R iver MG/ACTUAT a 62.5 Health Dry Powder MCG/IN Care) Inhaler H [Incruse] Incruse Ellipta 62.5 MCG/INH cetirizine ZyrTEC 1.0 active ZyrTEC eCW 3 hydrochlori Allerg {tabl Allergy 10 (Limon de 10 MG y 10 et} mg [facility] Oral Tablet mg Health [Zyrtec] Care) ZyrTEC Allergy 10 mg 7 ACTUAT Incrus suspend Incruse eCW 3 umeclidiniu e ed Ellipta 62.5 (Limon m 0.0625 Ellipt MCG/INH [place] MG/ACTUAT a 62.5 Health Dry Powder MCG/IN Care) Inhaler H [Incruse] Incruse Ellipta 62.5 MCG/INH montelukast Singul active 1 tablet in eCW2 10 MG Oral air 10 the evening (Limon Tablet mg [facility] [Singulair] Health Singulair Care) 10 mg Hydrochloro Hydroc 1.0 suspend Hydrochl orot eCW3 thiazide 25 hlorot {tabl ed hiazide 25 (Limon MG Oral hiazid et_in MG [place] Tablet e 25 _the_ Health MG morni Care) ng} 200 ACTUAT Ventol 2.0 active Ventolin H FA eCW3 Albuterol in HFA {puff 108 (90 (Hud son 0.09 108 s_as_ Base) [place] MG/ACTUAT (90 neede MCG/ACT Health Metered Base) d} Care) Dose MCG/AC Inhaler T [Ventolin] Ventolin HFA 108 (90 Base) MCG/ACT Flonase Flonas 1.0 active Flonase eCW3 Sensimist e {spra Sensimist (Hud son 27.5 Sensim y_in_ 27.5 [place] MCG/SPRAY ist each_ MCG/SPRAY Heal th 27.5 nostr Care) MCG/SP il} RAY montelukast Singul 1.0 active Singulair 10 eCW3 10 MG Oral air 10 {tabl mg ([place] n Tablet mg et_in [place] [Singulair] _the_ Health Singulair eveni Care) 10 mg ng} Hydrochloro Hydroc suspend 1 tablet in eCW2 thiazide 25 hlorot ed the morning (Limon MG Oral hiazid [place] Tablet e 25 Health MG Care) montelukast Singul 1.0 active Singulair 10 eCW3 10 MG Oral air 10 {tabl mg ([place] n Tablet mg et_in [place] [Singulair] _the_ Health Singulair eveni Care) 10 mg ng} Omeprazole Omepra 1.0 active Omeprazole eCW3 40 MG zole {caps 40 mg (Limon Delayed 40 mg ule} [facility] Oral Care) Capsule Omeprazole 40 mg 200 ACTUAT Ventol 2.0 active Ventolin H FA eCW3 Albuterol in HFA {puff 108 (90 (Hud son 0.09 108 s_as_ Base) [facility] MG/ACTUAT (90 neede MCG/ACT Health Metered Base) d} Care) Dose MCG/AC Inhaler T [Ventolin] Ventolin HFA 108 (90 Base) MCG/ACT Omeprazole Omepra 1.0 active Omeprazole eCW3 40 MG zole {caps 40 mg (Limon Delayed 40 mg ule} [facility] Health Oral Care) Capsule Omeprazole 40 mg ferrous Ferrou 1.0 suspend Ferrous eCW3 sulfate 325 s {tabl ed Sulfate 325 (Limon MG Delayed Sulfat et} (65 Fe) MG R iver Release e 325 Health Oral Tablet (65 Care) Ferrous Fe) MG Sulfate 325 (65 Fe) MG 200 ACTUAT Ventol 2.0 active Ventolin H FA eCW3 Albuterol in HFA {puff 108 (90 (Hud son 0.09 108 s_as_ Base) [facility] MG/ACTUAT (90 neede MCG/ACT Health Metered Base) d} Care) Dose MCG/AC Inhaler T [Ventolin] Ventolin HFA 108 (90 Base) MCG/ACT Multivitami UNK suspend Multivitam in eCW3 ns 1 ed s 1 ([facility]) Multivitami UNK suspend Multivitam in eCW3 ns 1 ed s 1 ([facility]) Omeprazole Omepra 1.0 active Omeprazole eCW3 40 MG zole {caps 40 mg (Limon Delayed 40 mg ule} [facility] Oral Care) Capsule Omeprazole 40 mg montelukast Singul 1.0 active Singulair 10 eCW3 10 MG Oral air 10 {tabl mg ([place] n Tablet mg et_in [place] [Singulair] _the_ Health Singulair eveni Care) 10 mg ng} Omeprazole Omepra 1.0 active Omeprazole eCW3 40 MG zole {caps 40 mg (Limon Delayed 40 mg ule} [facility] Oral Care) Capsule Omeprazole 40 mg Multivitami UNK suspend as directe d eCW2 ns 1 ed ([facility]) Hydrochloro Hydroc 1.0 suspend Hydrochl orot eCW3 thiazide 25 hlorot {tabl ed hiazide 25 (Limon MG Oral hiazid et_in MG [place] Tablet e 25 _the_ Health MG morni Care) ng} olopatadine Patano 1.0 active Patanol 0 .1 eCW3 1 MG/ML l 0.1 {drop % (Limon Ophthalmic % _into [facility] Solution _[facility] [Patanol] cted_ Care) Patanol 0.1 eye} % Multivitami UNK suspend Multivitam in eCW3 ns 1 ed s 1 ([facility] Health Care) 200 ACTUAT Ventol 2.0 active Ventolin H FA eCW3 Albuterol in HFA {puff 108 (90 (Hud son 0.09 108 s_as_ Base) [facility] MG/ACTUAT (90 neede MCG/ACT Health Metered Base) d} Care) Dose MCG/AC Inhaler T [Ventolin] Ventolin HFA 108 (90 Base) MCG/ACT Astelin 137 UNK 2.0 active Astelin 137 eCW3 MCG/SPRAY {puff MCG/SPRAY ([facility] son s_in_ [place] each_ Health nostr Care) il} ferrous Ferrou 1.0 suspend Ferrous eCW3 sulfate 325 s {tabl ed Sulfate 325 (Limon MG Delayed Sulfat et} (65 Fe) MG R iver Release e 325 Health Oral Tablet (65 Care) Ferrous Fe) MG Sulfate 325 (65 Fe) MG montelukast Singul 1.0 active Singulair 10 eCW3 10 MG Oral air 10 {tabl mg ([place] n Tablet mg et_in [place] [Singulair] _the_ Health Singulair eveni Care) 10 mg ng} olopatadine Patano 1.0 active Patanol 0 .1 eCW3 1 MG/ML l 0.1 {drop % (Limon Ophthalmic % _into [place] Solution _[facility] [Patanol] cted_ Care) Patanol 0.1 eye} % 200 ACTUAT Ventol 2.0 active Ventolin H FA eCW3 Albuterol in HFA {puff 108 (90 ([facility] son 0.09 108 s_as_ Base) [place] MG/ACTUAT (90 neede MCG/ACT Health Metered Base) d} Care) Dose MCG/AC Inhaler T [Ventolin] Ventolin HFA 108 (90 Base) MCG/ACT ferrous Ferrou suspend 1 tablet eCW 2 sulfate 325 s ed (Limon MG Delayed Sulfat [place] Release e 325 Health Oral Tablet (65 Care) Ferrous Fe) MG Sulfate 325 (65 Fe) MG olopatadine Patano 1.0 active Patanol 0 .1 eCW3 1 MG/ML l 0.1 {drop % (Limon Ophthalmic % _into [place] Solution _[facility] [Patanol] cted_ Care) Patanol 0.1 eye} % 7 ACTUAT Incrus suspend Incruse eCW 3 umeclidiniu e ed Ellipta 62.5 (Limon m 0.0625 Ellipt MCG/INH [place] MG/ACTUAT a 62.5 Health Dry Powder MCG/IN Care) Inhaler H [Incruse] Incruse Ellipta 62.5 MCG/INH Omeprazole Omepra 1.0 active Omeprazole eCW3 40 MG zole {caps 40 mg (Limon Delayed 40 mg ule} [facility] Oral Care) Capsule Omeprazole 40 mg Omeprazole Omepra 1.0 active Omeprazole eCW3 40 MG zole {caps 40 mg (Limon Delayed 40 mg ule} [facility] Oral Care) Capsule Omeprazole 40 mg Azelastine Azelas suspend eCW2 HCl 0.1 % jordon ed ([place] HCl [place] 0.1 % Health Care) Hydrochloro Hydroc 1.0 suspend Hydrochl orot eCW3 thiazide 25 hlorot {tabl ed hiazide 25 (Limon MG Oral hiazid et_in MG [place] Tablet e 25 _the_ Health MG morni Care) ng} Omeprazole Omepra active 1 capsule eCW2 40 MG zole (Limon Delayed 40 mg [facility] Release [facility] Oral Care) Capsule Omeprazole 40 mg No Known complet eCW2 Medications ed ([facility]) 200 ACTUAT Ventol suspend 2 puffs a s eCW2 Albuterol in HFA ed needed (Hudso n 0.09 108 [place] MG/ACTUAT (90 Health Metered Base) Care) Dose MCG/AC Inhaler T [Ventolin] Ventolin HFA 108 (90 Base) MCG/ACT 200 ACTUAT Ventol 2.0 active Ventolin H FA eCW3 Albuterol in HFA {puff 108 (90 (Hud son 0.09 108 s_as_ Base) [place] MG/ACTUAT (90 neede MCG/ACT Health Metered Base) d} Care) Dose MCG/AC Inhaler T [Ventolin] Ventolin HFA 108 (90 Base) MCG/ACT Omeprazole Omepra 1.0 active Omeprazole eCW3 40 MG zole {caps 40 mg (Limon Delayed 40 mg ule} [facility] Oral Care) Capsule Omeprazole 40 mg Insurance Providers Payer name Policy type Policy ID Covered Covered constitution party's Policy P darwin / Coverage constitution party ID relationship to [place] [id number] SP [id number] MEDICARE ADV PLAN MEDICAID [id number] SP [id number] [place]IRANDA MEDICARE [id number] SP [id number] [place] [id number] SP [id number] [place] [id number] SP [id number] [place] [id number] 1 [id number] [facility] [id number] 1 [id number] [facility] MEDICAID OF [id number] [place] [id number] 1 [id number] PART B [facility] MED[facility]ARE [id number] SP [id number] [facility] [id number] SP [id number] HEALTHCARE (MEDICARE) MEDICARE [id number] SP [id number] A Problems, Conditions, and Diagnoses Code Display Name Description Problem Effective Data Type Dates Source(s) G43.109 Ocular migraine Ocular migraine Problem 05/06/2020 eCW3 12:00:00 AM ([facility]) J32.8 Other chronic sinusitis Other chronic sinusitis Problem 05/03/2020 eCW3 12:00:00 AM ([facility]) U07.1 COVID-19 COVID-19 Problem 04/08/2020 eCW3 12:00:00 AM ([facility]) U07.1 COVID-19 COVID-19 Problem 04/08/2020 eCW3 12:00:00 AM ([facility]) J32.9 Sinusitis Sinusitis Problem 03/29/2020 eCW3 12:00:00 AM ([facility]) J31.0 Rhinitis Rhinitis Problem 03/29/2020 eCW3 12:00:00 AM ([facility]) J32.9 Sinusitis Sinusitis Problem 03/29/2020 eCW3 12:00:00 AM ([facility]) E66.01 Morbid (severe) obesity MORBID (SEVERE) OBESITY Problem 03/14/2020 MED[facility] (St due to excess calories DUE TO EXCESS CALORIES 1 2:00:00 AM [facility], ) J30.9 Allergic rhinitis, ALLERGIC RHINITIS, Problem 0 [facility] ([address] unspecified UNSPECIFIED 12:00:00 AM [facility], ) E66.3 Overweight OVERWEIGHT Problem 10/10/2019 MEDGEN (St 12:00:00 AM [facility], ) D64.9 Anemia, unspecified ANEMIA, UNSPECIFIED Problem 020 MED[facility] (St 12:00:00 AM [facility], ) I10 Essential (primary) ESSENTIAL (PRIMARY) Problem MEDGEN (St hypertension HYPERTENSION 12:00:00 AM [facility], ) H52.4 Presbyopia of both eyes Presbyopia of both eyes Problem 09/15/2019 eCW3 12:00:00 AM ([facility]) H52.13 Myopia, bilateral Myopia, bilateral Problem 09/15/2019 eCW3 12:00:00 AM ([facility]) H52.4 Presbyopia of both eyes Presbyopia of both eyes Problem 09/15/2019 eCW3 12:00:00 AM ([facility]) H52.13 Myopia, bilateral Myopia, bilateral Problem 09/15/2019 eCW3 12:00:00 AM ([facility]) H52.4 Presbyopia of both eyes Presbyopia of both eyes Problem 09/15/2019 eCW3 12:00:00 AM ([facility]) H52.13 Myopia, bilateral Myopia, bilateral Problem 09/15/2019 eCW3 12:00:00 AM ([facility]) H52.4 Presbyopia of both eyes Presbyopia of both eyes Problem 09/15/2019 eCW3 12:00:00 AM ([facility]) H04.123 Dry eyes, bilateral Dry eyes, bilateral Problem 020 eCW3 12:00:00 AM ([facility]) H04.123 Dry eyes, bilateral Dry eyes, bilateral Problem 020 eCW3 12:00:00 AM ([facility]) H04.123 Dry eyes, bilateral Dry eyes, bilateral Problem 020 eCW3 12:00:00 AM ([facility]) Z96.652 Status post left knee Status post left knee Problem eCW3 replacement replacement 12:00:00 AM ([facility]) Z96.652 Status post left knee Status post left knee Problem eCW3 replacement replacement 12:00:00 AM ([facility]) Z96.652 Status post left knee Status post left knee Problem eCW3 replacement replacement 12:00:00 AM ([facility]) J45.40 Moderate persistent MODERATE PERSISTENT Problem 019 [facility] (St asthma, uncomplicated ASTHMA, UNCOMPLICATED 12: 00:00 AM [facility] K21.9 Gastro-esophageal GASTRO-ESOPHAGEAL Problem 05/30/2019 MEDGEN (St reflux disease without REFLUX DISEASE WITHOUT 1 2:00:00 AM Didi esophagitis ESOPHAGITIS [facility], ) J45.40 Moderate persistent Asthma, moderate Problem 04/25/2019 eCW3 asthma persistent 12:00:00 AM ([facility]) J45.40 Moderate persistent Asthma, moderate Problem 04/25/2019 eCW3 asthma persistent 12:00:00 AM ([facility]) J45.40 Moderate persistent Asthma, moderate Problem 04/25/2019 eCW3 asthma persistent 12:00:00 AM ([facility]) J45.40 Moderate persistent Asthma, moderate Problem 04/25/2019 eCW3 asthma persistent 12:00:00 AM ([facility]) J45.40 Moderate persistent Asthma, moderate Problem 04/25/2019 eCW3 asthma persistent 12:00:00 AM ([facility]) E66.9 Obesity, unspecified OBESITY, UNSPECIFIED Problem 03/22 [facility] (St 12:00:00 [facility] J45.50 Severe persistent SEVERE PERSISTENT Problem 03/22/2019 MED[facility] (St asthma, uncomplicated ASTHMA, UNCOMPLICATED 12: 00:[address] [facility] EDT Medical, ) R06.02 Shortness of breath SHORTNESS OF BREATH Problem 019 MEDGEN (St 12:00:00 AM Didi T Medical, ) J20.8 Acute bronchitis due to ACUTE BRONCHITIS DUE TO Problem 02/13/2019 MEDGEN (St other specified OTHER SPECIFIED 12:00:00 AM Chris childs DAR[facility] EDT Medical, ) J96.10 Chronic respiratory CHRONIC RESPIRATORY Problem 019 MED[facility] (St failure, unspecified FAILURE, UNSPECIFIED 12:00 :00 AM [facility] whether with hypoxia or WHETHER WITH HYPOXIA OR EDT Medical, hypercapnia HYPERCAPNIA PC) J30.2 Seasonal allergic Seasonal allergic Problem 01/24/2019 eCW3 rhinitis, unspecified rhinitis, unspecified 12: 00:00 AM (Limon trigger trigger [facility]) J30.2 Seasonal allergic Seasonal allergic Problem 01/24/2019 eCW3 rhinitis, unspecified rhinitis, unspecified 12: 00:00 AM (Limon trigger trigger [facility]) J30.2 Seasonal allergic Seasonal allergic Problem 01/24/2019 eCW3 rhinitis, unspecified rhinitis, unspecified 12: 00:00 AM ([facility]imon trigger trigger [facility]) J30.2 Seasonal allergic Seasonal allergic Problem 01/24/2019 eCW3 rhinitis, unspecified rhinitis, unspecified 12: 00:00 AM (Limon trigger trigger [facility]) J30.2 Seasonal allergic Seasonal allergic Problem 01/24/2019 eCW3 rhinitis, unspecified rhinitis, unspecified 12: 00:00 AM (Limon trigger trigger [facility]) Z96.652 History of left knee History of left knee Problem 01/09 eCW3 replacement replacement 12:00:00 AM ([facility]) Z96.652 History of left knee History of left knee Problem 01/09 eCW3 replacement replacement 12:00:00 AM ([facility]) Z96.652 History of left knee History of left knee Problem 01/09 eCW3 replacement replacement 12:00:00 AM ([facility]) Z96.652 History of left knee History of left knee Problem 01/09 eCW3 replacement replacement 12:00:00 AM ([facility]) Z96.652 History of left knee History of left knee Problem 01/09 eCW3 replacement replacement 12:00:00 AM ([facility]) J45.20 Mild intermittent MILD INTERMITTENT Problem 01/04/2019 MED[facility] (St asthma, uncomplicated ASTHMA, UNCOMPLICATED 12: 00:00 AM [facility]) J42 Unspecified chronic UNSPECIFIED CHRONIC Problem 019 MEDGEN (St bronchitis BRONCHITIS 12:00:00 AM [facility]) J30.2 Other seasonal allergic OTHER SEASONAL ALLERGIC Problem 01/04/2019 MEDGEN (St rhinitis RHINITIS 12:00:00 AM [facility]) J30.2 Seasonal allergic Seasonal allergic Problem 12/07/2018 eCW3 reaction reaction 12:00:00 AM ([facility]) J30.2 Seasonal allergic Seasonal allergic Problem 12/07/2018 eCW3 reaction reaction 12:00:00 AM ([facility]) J30.2 Seasonal allergic Seasonal allergic Problem 12/07/2018 eCW3 reaction reaction 12:00:00 AM ([facility]) J30.2 Seasonal allergic Seasonal allergic Problem 12/07/2018 eCW3 reaction reaction 12:00:00 AM ([facility]) J30.2 Seasonal allergic Seasonal allergic Problem 12/07/2018 eCW3 reaction reaction 12:00:00 AM ([facility]) J30.2 Seasonal allergic Seasonal allergic Problem 12/07/2018 eCW3 reaction reaction 12:00:00 AM ([facility]) J06.9 Acute upper respiratory ACUTE UPPER RESPIRATORY Problem 11/07/2018 [facility] (St infection, unspecified INFECTION, UNSPECIFIED 1 2:00:00 AM [facility]) N91.2 Amenorrhea Amenorrhea Problem 11/01/2018 eCW3 12:00:00 AM ([facility]) N91.2 Amenorrhea Amenorrhea Problem 11/01/2018 eCW3 12:00:00 AM ([facility]) N91.2 Amenorrhea Amenorrhea Problem 11/01/2018 eCW3 12:00:00 AM ([facility]) N91.2 Amenorrhea Amenorrhea Problem 11/01/2018 eCW3 12:00:00 AM ([facility]) N91.2 Amenorrhea Amenorrhea Problem 11/01/2018 eCW3 12:00:00 AM ([facility]) J45.901 Exacerbation of Exacerbation of Problem 06/22/2018 eCW3 persistent asthma, persistent asthma, 12:00:00 AM ([place] unspecified asthma unspecified asthma [facility]) J45.901 Exacerbation of Exacerbation of Problem 06/22/2018 eCW3 persistent asthma, persistent asthma, 12:00:00 AM ([place] unspecified asthma unspecified asthma [facility]) J45.901 Exacerbation of Exacerbation of Problem 06/22/2018 eCW3 persistent asthma, persistent asthma, 12:00:00 AM ([place] unspecified asthma unspecified asthma [facility]) J45.901 Exacerbation of Exacerbation of Problem 06/22/2018 eCW3 persistent asthma, persistent asthma, 12:00:00 AM ([place] unspecified asthma unspecified asthma [facility]) J45.901 Exacerbation of Exacerbation of Problem 06/22/2018 eCW2 persistent asthma, persistent asthma, 12:00:00 AM ([place] unspecified asthma unspecified asthma [facility]) Z96.652 Status post total knee Status post total knee Problem 0 04/04/2018 eCW3 replacement, left replacement, left 12:00:00 AM ([facility]) Z96.652 Status post total knee Status post total knee Problem 0 04/04/2018 eCW3 replacement, left replacement, left 12:00:00 AM ([facility]) Z96.652 Status post total knee Status post total knee Problem 0 04/04/2018 eCW3 replacement, left replacement, left 12:00:00 AM ([facility]) Z96.652 Status post total knee Status post total knee Problem 0 04/04/2018 eCW3 replacement, left replacement, left 12:00:00 AM ([facility]) Z96.652 Status post total knee Status post total knee Problem 0 04/04/2018 eCW2 replacement, left replacement, left 12:00:00 AM ([facility]) Z96.652 Status post total knee Status post total knee Problem 0 04/04/2018 eCW3 replacement, left replacement, left 12:00:00 AM ([facility]) Z88.9 Multiple allergies Multiple allergies Problem 8 eCW3 12:00:00 AM ([facility]) J02.9 Acute pharyngitis Acute pharyngitis, Problem 03/21/2018 eCW3 unspecified 12:00:00 AM ([facility]) J02.9 Acute pharyngitis Acute pharyngitis, Problem 03/21/2018 eCW3 unspecified 12:00:00 AM ([facility]) Z88.9 Multiple allergies Multiple allergies Problem 8 eCW3 12:00:00 AM ([facility]) J02.9 Acute pharyngitis Acute pharyngitis, Problem 03/21/2018 eCW3 unspecified 12:00:00 AM ([facility]) Z88.9 Multiple allergies Multiple allergies Problem 8 eCW3 12:00:00 AM ([facility]) J02.9 Acute pharyngitis Acute pharyngitis, Problem 03/21/2018 eCW3 unspecified 12:00:00 AM ([facility]) Z88.9 Multiple allergies Multiple allergies Problem 8 eCW2 12:00:00 AM ([facility]) J02.9 Acute pharyngitis Acute pharyngitis, Problem 03/21/2018 eCW2 unspecified 12:00:00 AM ([facility]) Z88.9 Multiple allergies Multiple allergies Problem 8 eCW3 12:00:00 AM ([facility]) J02.9 Acute pharyngitis Acute pharyngitis, Problem 03/21/2018 eCW3 unspecified 12:00:00 AM ([facility]) R07.9 Chest pain, unspecified CHEST PAIN, UNSPECIFIED Problem 02/16/2018 [facility] (St 12:00:[address] [facility], ) J44.1 Chronic obstructive CHRONIC OBSTRUCTIVE Problem 018 [facility] (St pulmonary disease with PULMONARY DISEASE WITH 1 2:00:00 AM Didi (acute) exacerbation (ACUTE) EXACERBATION [facility], ) J20.9 Acute bronchitis, ACUTE BRONCHITIS, Problem 12/08/2017 [facility] (St unspecified UNSPECIFIED 12:00:[address] [facility], ) M17.12 Primary osteoarthritis Primary osteoarthritis Problem 0 11/12/2017 eCW3 of left knee of left knee 12:00:00 AM ([facility]) M17.12 Primary osteoarthritis Primary osteoarthritis Problem 0 11/12/2017 eCW3 of left knee of left knee 12:00:00 AM ([facility]) M17.12 Primary osteoarthritis Primary osteoarthritis Problem 0 11/12/2017 eCW3 of left knee of left knee 12:00:00 AM ([facility]) M17.12 Primary osteoarthritis Primary osteoarthritis Problem 0 11/12/2017 eCW2 of left knee of left knee 12:00:00 AM ([facility]) M17.12 Primary osteoarthritis Primary osteoarthritis Problem 0 11/12/2017 eCW3 of left knee of left knee 12:00:00 AM ([facility]) J45.901 Exacerbation of asthma Asthma exacerbation Problem 10/08 eCW3 12:00:00 AM ([facility]) J45.901 Exacerbation of asthma Asthma exacerbation Problem 10/08 eCW3 12:00:00 AM ([facility]) J45.901 Exacerbation of asthma Asthma exacerbation Problem 10/08 eCW3 12:00:00 AM ([facility]) J45.901 Exacerbation of asthma Asthma exacerbation Problem 10/08 eCW3 12:00:00 AM ([facility]) J45.901 Exacerbation of asthma Asthma exacerbation Problem 10/08 eCW3 12:00:00 AM ([facility]) J45.901 Exacerbation of asthma Asthma exacerbation Problem 10/08 eCW2 12:00:00 AM ([facility]) J45.901 Exacerbation of asthma Asthma exacerbation Problem 10/08 eCW3 12:00:00 AM ([facility]) J45.21 Mild intermittent MILD INTERMITTENT Problem 09/16/2017 [facility] (St asthma with (acute) ASTHMA WITH (ACUTE) 12:00:0 0 AM Kwame's exacerbation EXACERBATION [facility], ) J32.9 Rhinosinusitis Rhinosinusitis Problem 09/14/2017 eCW3 12:00:00 AM ([facility]) J32.9 Rhinosinusitis Rhinosinusitis Problem 09/14/2017 eCW3 12:00:00 AM ([facility]) J32.9 Rhinosinusitis Rhinosinusitis Problem 09/14/2017 eCW3 12:00:00 AM ([facility]) J32.9 Rhinosinusitis Rhinosinusitis Problem 09/14/2017 eCW2 12:00:00 AM ([facility]) J32.9 Rhinosinusitis Rhinosinusitis Problem 09/14/2017 eCW3 12:00:00 AM ([facility]) Z23 Immunization due Immunization due Problem 06/18/2017 eC W3 12:00:00 AM ([facility]) Z23 Immunization due Immunization due Problem 06/18/2017 eC W3 12:00:00 AM ([facility]) Z23 Immunization due Immunization due Problem 06/18/2017 eC W3 12:00:00 AM ([facility]) Z23 Immunization due Immunization due Problem 06/18/2017 eC W3 12:00:00 AM ([facility]) Z23 Immunization due Immunization due Problem 06/18/2017 eC W2 12:00:00 AM ([facility]) J41.8 Mixed simple and Mixed simple and Problem 04/09/2017 eC W3 mucopurulent chronic mucopurulent chronic 12:00 :00 AM ([place] bronchitis bronchitis [facility]) J41.8 Mixed simple and Mixed simple and Problem 04/09/2017 eC W3 mucopurulent chronic mucopurulent chronic 12:00 :00 AM ([place] bronchitis bronchitis [facility]) J41.8 Mixed simple and Mixed simple and Problem 04/09/2017 eC W3 mucopurulent chronic mucopurulent chronic 12:00 :00 AM ([place] bronchitis bronchitis [facility]) J44.1 COPD exacerbation COPD exacerbation Problem 04/09/2017 eCW3 12:00:00 AM ([facility]) J41.8 Mixed simple and Mixed simple and Problem 04/09/2017 eC W2 mucopurulent chronic mucopurulent chronic 12:00 :00 AM ([place] bronchitis bronchitis [facility]) J44.1 COPD exacerbation COPD exacerbation Problem 04/09/2017 eCW2 12:00:00 AM ([facility]) J41.8 Mixed simple and Mixed simple and Problem 04/09/2017 eC W3 mucopurulent chronic mucopurulent chronic 12:00 :00 AM ([place] bronchitis bronchitis [facility]) J44.1 COPD exacerbation COPD exacerbation Problem 04/09/2017 eCW3 12:00:00 AM ([facility]) J40 Bronchitis Bronchitis Problem 03/04/2017 eCW3 12:00:00 AM ([facility]) J40 Bronchitis Bronchitis Problem 03/04/2017 eCW2 12:00:00 AM ([facility]) J40 Bronchitis Bronchitis Problem 03/04/2017 eCW3 12:00:00 AM ([facility]) G89.29 Other chronic pain Other chronic pain Problem 7 eCW3 12:00:00 AM ([facility]) G89.29 Other chronic pain Other chronic pain Problem 7 eCW3 12:00:00 AM ([facility]) G89.29 Other chronic pain Other chronic pain Problem 7 eCW3 12:00:00 AM ([facility]) G89.29 Other chronic pain Other chronic pain Problem 7 eCW3 12:00:00 AM ([facility]) G89.29 Other chronic pain Other chronic pain Problem 7 eCW2 12:00:00 AM ([facility]) Z12.39 Screening for breast Screening for breast Problem 12/14 eCW3 cancer cancer 12:00:00 AM ([facility]) Z12.39 Screening for breast Screening for breast Problem 12/14 eCW3 cancer cancer 12:00:00 AM ([facility]) Z12.39 Screening for breast Screening for breast Problem 12/14 eCW3 cancer cancer 12:00:00 AM ([facility]) Z12.39 Screening for breast Screening for breast Problem 12/14 eCW3 cancer cancer 12:00:00 AM ([facility]) Z12.39 Screening for breast Screening for breast Problem 12/14 eCW2 cancer cancer 12:00:00 AM ([facility]) Z12.39 Screening for breast Screening for breast Problem 12/14 eCW3 cancer cancer 12:00:00 AM ([facility]) J44.9 Chronic obstructive CHRONIC OBSTRUCTIVE Problem 017 [facility] ([facility] pulmonary disease, PULMONARY DISEASE, 12:00:00 AM [facility]'s unspecified UNSPECIFIED [facility], ) J45.41 Moderate persistent MODERATE PERSISTENT Problem 017 [facility] (St asthma with (acute) ASTHMA WITH (ACUTE) 12:00:0 0 AM [facility]'s exacerbation EXACERBATION [facility], ) J02.8 Acute pharyngitis due Acute pharyngitis due Problem 02/2016 eCW3 to other specified to other specified 12:00:00 AM ([facility] organisms organisms [facility]) B96.89 Bacterial infectious Other specified Problem 03/11/2016 eCW3 disease bacterial agents as the 12:00:00 AM ([facility] cause of diseases [facility]T [facility]) J02.8 Acute pharyngitis due Acute pharyngitis due Problem 02/2016 eCW3 to other specified to other specified 12:00:00 AM ([facility] organisms organisms [facility]) B96.89 Bacterial infectious Other specified Problem 03/11/2016 eCW3 disease bacterial agents as the 12:00:00 AM ([facility] cause of diseases EDT [facility]) J02.8 Acute pharyngitis due Acute pharyngitis due Problem 02/2016 eCW3 to other specified to other specified 12:00:00 AM ([facility] organisms organisms [facility]) B96.89 Bacterial infectious Other specified Problem 03/11/2016 eCW3 disease bacterial agents as the 12:00:00 AM ([facility] cause [facility] diseases [facility]) B96.89 Bacterial infectious Other specified Problem 03/11/2016 eCW3 disease bacterial agents as the 12:00:00 AM ([facility] cause of diseases [facility]) J02.8 Acute pharyngitis due Acute pharyngitis due Problem 02/2016 eCW3 to other specified to other specified 12:00:00 AM ([place] organisms organisms [facility]) J02.8 Acute pharyngitis due Acute pharyngitis due Problem 02/2016 eCW2 to other specified to other specified 12:00:00 AM ([place] organisms organisms [facility]) B96.89 Bacterial infectious Other specified Problem 03/11/2016 eCW2 disease bacterial agents as the 12:00:00 AM ([facility] cause [facility] diseases [facility]) J02.8 Acute pharyngitis due Acute pharyngitis due Problem 02/2016 eCW3 to other specified to other specified 12:00:00 AM ([place] organisms organisms [facility]) J06.9 URI (upper respiratory URI (upper respiratory Problem 0 02/10/2016 eCW3 infection) infection) 12:00:00 AM ([facility]) J06.9 URI (upper respiratory URI (upper respiratory Problem 0 02/10/2016 eCW3 infection) infection) 12:00:00 AM ([facility]) J06.9 URI (upper respiratory URI (upper respiratory Problem 0 02/10/2016 eCW3 infection) infection) 12:00:00 AM ([facility]) J06.9 URI (upper respiratory URI (upper respiratory Problem 0 02/10/2016 eCW3 infection) infection) 12:00:00 AM ([facility]) J06.9 URI (upper respiratory URI (upper respiratory Problem 0 02/10/2016 eCW3 infection) infection) 12:00:00 AM ([facility]) J06.9 URI (upper respiratory URI (upper respiratory Problem 0 02/10/2016 eCW2 infection) infection) 12:00:00 AM ([facility]) E55.9 Vitamin D deficiency Vitamin D deficiency Problem 07/23 eCW3 12:00:00 AM ([facility]) D64.9 Anemia Anemia Problem 07/23/2015 eCW3 12:00:00 AM ([facility]) E55.9 Vitamin D deficiency Vitamin D deficiency Problem 07/23 eCW3 12:00:00 AM ([facility]) D64.9 Anemia Anemia Problem 07/23/2015 eCW3 12:00:00 AM ([facility]) D64.9 Anemia Anemia Problem 07/23/2015 eCW3 12:00:00 AM ([facility]) E55.9 Vitamin D deficiency Vitamin D deficiency Problem 07/23 eCW3 12:00:00 AM ([facility]) D64.9 Anemia Anemia Problem 07/23/2015 eCW3 12:00:00 AM ([facility]) E55.9 Vitamin D deficiency Vitamin D deficiency Problem 07/23 eCW3 12:00:00 AM ([facility]) D64.9 Anemia Anemia Problem 07/23/2015 eCW2 12:00:00 AM ([facility]) E55.9 Vitamin D deficiency Vitamin D deficiency Problem 07/23 eCW2 12:00:00 AM ([facility]) E55.9 Vitamin D deficiency Vitamin D deficiency Problem 07/23 eCW3 12:00:00 AM ([facility]) J30.9 Allergic rhinitis Allergic rhinitis Problem 07/08/2015 eCW3 12:00:00 AM ([facility]) E78.1 Hypertriglyceridemia Hypertriglyceridemia Problem 07/08 eCW3 12:00:00 AM ([facility]) E78.1 Hypertriglyceridemia Hypertriglyceridemia Problem 07/08 eCW3 12:00:00 AM ([facility]) J30.9 Allergic rhinitis Allergic rhinitis Problem 07/08/2015 eCW3 12:00:00 AM ([facility]) J30.9 Allergic rhinitis Allergic rhinitis Problem 07/08/2015 eCW3 12:00:00 AM ([facility]) E78.1 Hypertriglyceridemia Hypertriglyceridemia Problem 07/08 eCW3 12:00:00 AM ([facility]) E78.1 Hypertriglyceridemia Hypertriglyceridemia Problem 07/08 eCW2 12:00:00 AM ([facility]) J30.9 Allergic rhinitis Allergic rhinitis Problem 07/08/2015 eCW2 12:00:00 AM ([facility]) E78.1 Hypertriglyceridemia Hypertriglyceridemia Problem 07/08 eCW3 12:00:00 AM ([facility]) J30.9 Allergic rhinitis Allergic rhinitis Problem 07/08/2015 eCW3 12:00:00 AM ([facility]) Surgeries/Procedures Procedure Description Date Indications Data Source(s) Documentation of 03/14/2020 [facility] ([facility] current medications 12:00:00 AM [facility]) (procedure) EDT Documentation of 03/14/2020 [facility] ([facility] current medications 12:00:00 AM [facility]) (procedure) EDT Peak expiratory flow 03/14/2020 [facility] ([facility] rate meter, hand held 12:00:00 AM Medica l, PC) EDT OFFICE OUTPATIENT 03/14/2020 [facility] ([facility] VISIT 15 MINUTES 12:00:00 AM [facility], [facility] ) EDT ECG ROUTINE ECG 03/14/2020 [facility] ([facility] W/LEAST 12 LDS W/I&R 12:00:00 AM [facility] , PC) EDT Documentation of 11/07/2019 [facility] ([facility] current medications 12:00:00 AM [facility]) (procedure) EST Documentation of 11/07/2019 [facility] ([facility] current medications 12:00:00 AM [facility], [facility]) (procedure) EST Documentation of 11/07/2019 [facility] ([facility] current medications 12:00:00 AM [facility], PC) (procedure) EST Documentation of 11/07/2019 [facility] ([facility] current medications 12:00:00 AM [facility], PC) (procedure) EST Documentation of 11/07/2019 [facility] ([facility] current medications 12:00:00 AM [facility], PC) (procedure) EST Documentation of 11/07/2019 [facility] ([facility] current medications 12:00:00 AM [facility], PC) (procedure) EST Documentation of 11/07/2019 [facility] ([facility] current medications 12:00:00 AM [facility], [facility]) (procedure) EST Documentation of 11/07/2019 [facility] ([facility] current medications 12:00:00 AM [facility], [facility]) (procedure) EST OFFICE OUTPATIENT 11/07/2019 [facility] ([facility] VISIT 25 MINUTES 12:00:00 AM [facility], PC ) EST Documentation of 10/11/2019 [facility] ([facility] current medications 12:00:00 AM [facility], PC) (procedure) EST OFFICE OUTPATIENT 10/11/2019 [facility] ([facility] VISIT 15 MINUTES 12:00:00 AM [facility], PC ) EST Documentation of 10/10/2019 [facility] ([facility] current medications 12:00:00 AM Medical, PC) (procedure) EST Documentation of 10/10/2019 [facility] ([facility] current medications 12:00:00 AM Medical, PC) (procedure) EST Documentation of 10/10/2019 [facility] ([facility] current medications 12:00:00 AM Medical, PC) (procedure) EST Documentation of 10/10/2019 [facility] ([facility] current medications 12:00:00 AM [facility], PC) (procedure) EST Documentation of 10/10/2019 [facility] ([facility] current medications 12:00:00 AM Medical, PC) (procedure) EST Documentation of 10/10/2019 [facility] ([facility] current medications 12:00:00 AM [facility], PC) (procedure) EST Documentation of 10/10/2019 [facility] ([facility] current medications 12:00:00 AM [facility], PC) (procedure) EST OFFICE OUTPATIENT 10/10/2019 [facility] ([facility] VISIT 25 MINUTES 12:00:00 AM [facility], PC ) EST ECG ROUTINE ECG 10/10/2019 [facility] ([facility] W/LEAST 12 LDS W/I&R 12:00:00 AM Medical , PC) EST COLLECTION VENOUS 10/10/2019 [facility] ([facility] BLOOD VENIPUNCTURE 12:00:00 AM Medical, PC) EST Documentation of 08/16/2019 [facility] ([facility] current medications 12:00:00 AM Medical, PC) (procedure) EST Documentation of 08/16/2019 [facility] ([facility] current medications 12:00:00 AM Medical, PC) (procedure) EST Documentation of 08/16/2019 [facility] ([facility] current medications 12:00:00 AM [facility], PC) (procedure) EST Documentation of 08/16/2019 [facility] ([facility] current medications 12:00:00 AM [facility], PC) (procedure) EST Documentation of 08/16/2019 [facility] ([facility] current medications 12:00:00 AM Medical, PC) (procedure) EST OFFICE OUTPATIENT 08/16/2019 [facility] ([facility] VISIT 25 MINUTES 12:00:00 AM Medical, PC ) EST COLLECTION VENOUS 08/16/2019 [facility] ([facility] BLOOD VENIPUNCTURE 12:00:00 AM Medical, PC) EST Documentation of 08/04/2019 [facility] ([facility] current medications 12:00:00 AM Medical, PC) (procedure) EST Documentation of 08/04/2019 [facility] ([facility] current medications 12:00:00 AM Medical, PC) (procedure) EST Documentation of 08/04/2019 [facility] ([facility] current medications 12:00:00 AM Medical, PC) (procedure) EST Documentation of 08/04/2019 [facility] ([facility] current medications 12:00:00 AM Medical, PC) (procedure) EST Documentation of 08/04/2019 [facility] ([facility] current medications 12:00:00 AM Medical, PC) (procedure) EST Documentation of 08/04/2019 [facility] ([facility] current medications 12:00:00 AM Medical, PC) (procedure) EST Documentation of 08/04/2019 [facility] ([facility] current medications 12:00:00 AM Medical, PC) (procedure) EST Documentation of 08/04/2019 [facility] ([facility] current medications 12:00:00 AM Medical, PC) (procedure) EST Documentation of 08/04/2019 [facility] ([facility] current medications 12:00:00 AM Medical, PC) (procedure) EST Documentation of 08/04/2019 [facility] ([facility] current medications 12:00:00 AM Medical, PC) (procedure) EST Documentation of 08/04/2019 [facility] ([facility] current medications 12:00:00 AM Medical, PC) (procedure) EST Documentation of 08/04/2019 [facility] ([facility] current medications 12:00:00 AM Medical, PC) (procedure) EST Documentation of 08/04/2019 [facility] ([facility] current medications 12:00:00 AM Medical, PC) (procedure) EST Documentation of 08/04/2019 [facility] ([facility] current medications 12:00:00 AM Medical, PC) (procedure) EST Documentation of 08/04/2019 [facility] ([facility] current medications 12:00:00 AM Medical, PC) (procedure) EST Documentation of 08/04/2019 [facility] ([facility] current medications 12:00:00 AM Medical, PC) (procedure) EST OFFICE OUTPATIENT 08/04/2019 [facility] ([facility] VISIT 15 MINUTES 12:00:00 AM Medical, PC ) EST Documentation of 07/10/2019 [facility] ([facility] current medications 12:00:00 AM Medical, PC) (procedure) EST Documentation of 07/10/2019 [facility] ([facility] current medications 12:00:00 AM Medical, PC) (procedure) EST Documentation of 07/10/2019 [facility] ([facility] current medications 12:00:00 AM Medical, PC) (procedure) EST Documentation of 07/10/2019 [facility] ([facility] current medications 12:00:00 AM Medical, PC) (procedure) EST Documentation of 07/10/2019 [facility] ([facility] current medications 12:00:00 AM Medical, PC) (procedure) EST Documentation of 07/10/2019 [facility] ([facility] current medications 12:00:00 AM Medical, PC) (procedure) EST Documentation of 07/10/2019 [facility] ([facility] current medications 12:00:00 AM Medical, PC) (procedure) EST Documentation of 07/10/2019 [facility] ([facility] current medications 12:00:00 AM Medical, PC) (procedure) EST Documentation of 07/10/2019 [facility] ([facility] current medications 12:00:00 AM Medical, PC) (procedure) EST Documentation of 07/10/2019 [facility] ([facility] current medications 12:00:00 AM Medical, PC) (procedure) EST Documentation of 07/10/2019 [facility] ([facility] current medications 12:00:00 AM Medical, PC) (procedure) EST Documentation of 07/10/2019 [facility] ([facility] current medications 12:00:00 AM Medical, PC) (procedure) EST Documentation of 07/10/2019 [facility] ([facility] current medications 12:00:00 AM Medical, PC) (procedure) EST OFFICE OUTPATIENT 07/10/2019 [facility] ([facility] VISIT 15 MINUTES 12:00:00 AM Medical, PC ) EST Documentation of 06/26/2019 [facility] ([facility] current medications 12:00:00 AM Medical, PC) (procedure) EDT Documentation of 06/26/2019 [facility] ([facility] current medications 12:00:00 AM Medical, PC) (procedure) EDT Documentation of 06/26/2019 [facility] ([facility] current medications 12:00:00 AM Medical, PC) (procedure) EDT Documentation of 06/26/2019 [facility] ([facility] current medications 12:00:00 AM Medical, PC) (procedure) EDT Documentation of 06/26/2019 [facility] ([facility] current medications 12:00:00 AM Medical, PC) (procedure) EDT Documentation of 06/26/2019 [facility] ([facility] current medications 12:00:00 AM Medical, PC) (procedure) EDT Documentation of 06/26/2019 [facility] ([facility] current medications 12:00:00 AM Medical, PC) (procedure) EDT Documentation of 06/26/2019 [facility] ([facility] current medications 12:00:00 AM Medical, PC) (procedure) EDT STREPTOCOCCUS GROUP A 06/26/2019 [facility] ([facility] 12:00:00 AM Medical, PC) EDT OFFICE OUTPATIENT 06/26/2019 [facility] ([facility] VISIT 15 MINUTES 12:00:00 AM Medical, PC ) EDT Documentation of 06/08/2019 [facility] ([facility] current medications 12:00:00 AM Medical, PC) (procedure) EDT Documentation of 06/08/2019 [facility] ([facility] current medications 12:00:00 AM Medical, PC) (procedure) EDT Documentation of 06/08/2019 [facility] ([facility] current medications 12:00:00 AM Medical, PC) (procedure) EDT Documentation of 06/08/2019 [facility] ([facility] current medications 12:00:00 AM Medical, PC) (procedure) EDT Documentation of 06/08/2019 [facility] ([facility] current medications 12:00:00 AM Medical, PC) (procedure) EDT Documentation of 06/08/2019 [facility] ([facility] current medications 12:00:00 AM Medical, PC) (procedure) EDT Documentation of 06/08/2019 [facility] ([facility] current medications 12:00:00 AM Medical, PC) (procedure) EDT Documentation of 06/08/2019 [facility] ([facility] current medications 12:00:00 AM Medical, PC) (procedure) EDT Documentation of 06/08/2019 [facility] ([facility] current medications 12:00:00 AM Medical, PC) (procedure) EDT Documentation of 06/08/2019 [facility] ([facility] current medications 12:00:00 AM Medical, PC) (procedure) EDT Documentation of 06/08/2019 [facility] ([facility] current medications 12:00:00 AM Medical, PC) (procedure) EDT Documentation of 06/08/2019 [facility] ([facility] current medications 12:00:00 AM Medical, PC) (procedure) EDT Documentation of 06/08/2019 [facility] ([facility] current medications 12:00:00 AM Medical, PC) (procedure) EDT Documentation of 06/08/2019 [facility] ([facility] current medications 12:00:00 AM Medical, PC) (procedure) EDT OFFICE OUTPATIENT 06/08/2019 [facility] ([facility] VISIT 15 MINUTES 12:00:00 AM Medical, PC ) EDT OFFICE OUTPATIENT 05/30/2019 [facility] ([facility] VISIT 15 MINUTES 12:00:00 AM Medical, PC ) EDT Documentation of 05/17/2019 [facility] ([facility] current medications 12:00:00 AM Medical, PC) (procedure) EDT Documentation of 05/17/2019 [facility] ([facility] current medications 12:00:00 AM Medical, PC) (procedure) EDT Documentation of 05/17/2019 [facility] ([facility] current medications 12:00:00 [facility]) (procedure) EDT Documentation of 05/17/2019 [facility] ([facility] current medications 12:00:00 AM [facility], [facility]) (procedure) EDT Documentation of 05/17/2019 [facility] ([facility] current medications 12:00:00 AM [facility], [facility]) (procedure) EDT Documentation of 05/17/2019 [facility] ([facility] current medications 12:00:00 AM [facility], [facility]) (procedure) EDT Documentation of 05/17/2019 [facility] ([facility] current medications 12:00:00 AM [facility], PC) (procedure) EDT Documentation of 05/17/2019 [facility] ([facility] current medications 12:00:00 AM [facility], PC) (procedure) EDT Documentation of 05/17/2019 [facility] ([facility] current medications 12:00:00 AM [facility], [facility]) (procedure) EDT Documentation of 05/17/2019 [facility] ([facility] current medications 12:00:00 AM [facility], PC) (procedure) EDT Documentation of 05/17/2019 [facility] ([facility] current medications 12:00:00 AM [facility], [facility]) (procedure) EDT Documentation of 05/17/2019 [facility] ([facility] current medications 12:00:00 AM [facility], [facility]) (procedure) EDT OFFICE OUTPATIENT 05/17/2019 [facility] ([facility] VISIT 15 MINUTES 12:00:00 AM [facility], PC ) EDT Documentation of 05/01/2019 [facility] ([facility] current medications 12:00:00 AM [facility], [facility]) (procedure) EDT Documentation of 05/01/2019 [facility] ([facility] current medications 12:00:00 AM [facility], [facility]) (procedure) EDT Documentation of 05/01/2019 [facility] ([facility] current medications 12:00:00 AM [facility], [facility]) (procedure) EDT Documentation of 05/01/2019 [facility] ([facility] current medications 12:00:00 AM [facility], PC) (procedure) EDT Documentation of 05/01/2019 [facility] ([facility] current medications 12:00:00 AM [facility], PC) (procedure) EDT Documentation of 05/01/2019 [facility] ([facility] current medications 12:00:00 AM [facility], PC) (procedure) EDT Documentation of 05/01/2019 [facility] ([facility] current medications 12:00:00 AM [facility], [facility]) (procedure) EDT Documentation of 05/01/2019 [facility] ([facility] current medications 12:00:00 AM [facility], PC) (procedure) EDT Documentation of 05/01/2019 [facility] ([facility] current medications 12:00:00 AM [facility], [facility]) (procedure) EDT Documentation of 05/01/2019 [facility] ([facility] current medications 12:00:00 AM [facility], [facility]) (procedure) EDT OFFICE OUTPATIENT 05/01/2019 [facility] ([facility] VISIT 15 MINUTES 12:00:00 AM Medical, PC ) EDT NONINVASIVE EAR/PULSE 05/01/2019 [facility] ([facility] OXIMETRY OVERNIGHT 12:00:00 AM Medical, PC) MONITOR EDT Documentation of 04/13/2019 [facility] ([facility] current medications 12:00:00 AM [facility], [facility]) (procedure) EDT Documentation of 04/13/2019 [facility] ([facility] current medications 12:00:00 AM [facility], [facility]) (procedure) EDT Documentation of 04/13/2019 [facility] ([facility] current medications 12:00:00 AM [facility], PC) (procedure) EDT Documentation of 04/13/2019 [facility] ([facility] current medications 12:00:00 AM [facility], PC) (procedure) EDT Documentation of 04/13/2019 [facility] ([facility] current medications 12:00:00 AM [facility], PC) (procedure) EDT Documentation of 04/13/2019 [facility] ([facility] current medications 12:00:00 AM [facility], PC) (procedure) EDT Documentation of 04/13/2019 [facility] ([facility] current medications 12:00:00 AM [facility], PC) (procedure) EDT Documentation of 04/13/2019 [facility] ([facility] current medications 12:00:00 AM [facility], PC) (procedure) EDT Documentation of 04/13/2019 [facility] ([facility] current medications 12:00:00 AM [facility], [facility]) (procedure) EDT Documentation of 04/13/2019 [facility] ([facility] current medications 12:00:00 AM [facility], [facility]) (procedure) EDT OFFICE OUTPATIENT 04/13/2019 [facility] ([facility] VISIT 25 MINUTES 12:00:00 AM Medical, PC ) EDT OFFICE OUTPATIENT 04/06/2019 [facility] ([facility] VISIT 15 MINUTES 12:00:00 AM Medical, PC ) EDT OFFICE OUTPATIENT 03/22/2019 [facility] ([facility] VISIT 15 MINUTES 12:00:00 AM [facility], PC ) EDT Documentation of 03/14/2019 [facility] ([facility] current medications 12:00:00 AM [facility], PC) (procedure) EDT Documentation of 03/14/2019 [facility] ([facility] current medications 12:00:00 AM [facility], PC) (procedure) EDT Documentation of 03/14/2019 [facility] ([facility] current medications 12:00:00 AM [facility], PC) (procedure) EDT Documentation of 03/14/2019 [facility] ([facility] current medications 12:00:00 AM [facility], PC) (procedure) EDT Documentation of 03/14/2019 [facility] ([facility] current medications 12:00:00 AM [facility], PC) (procedure) EDT Documentation of 03/14/2019 [facility] ([facility] current medications 12:00:00 AM [facility], PC) (procedure) EDT Documentation of 03/14/2019 [facility] ([facility] current medications 12:00:00 AM Medical, PC) (procedure) EDT Documentation of 03/14/2019 [facility] ([facility] current medications 12:00:00 AM [facility], PC) (procedure) EDT Documentation of 03/14/2019 [facility] ([facility] current medications 12:00:00 AM [facility], PC) (procedure) EDT Documentation of 03/14/2019 [facility] ([facility] current medications 12:00:00 AM [facility], PC) (procedure) EDT Documentation of 03/14/2019 [facility] ([facility] current medications 12:00:00 AM [facility], PC) (procedure) EDT OFFICE OUTPATIENT 03/14/2019 [facility] ([facility] VISIT 15 MINUTES 12:00:00 AM [facility], [facility] ) EDT Documentation of 02/28/2019 [facility] ([facility] current medications 12:00:00 AM [facility], PC) (procedure) EDT Documentation of 02/28/2019 [facility] ([facility] current medications 12:00:00 AM [facility], PC) (procedure) EDT Documentation of 02/28/2019 [facility] ([facility] current medications 12:00:00 AM [facility], PC) (procedure) EDT Documentation of 02/28/2019 [facility] ([facility] current medications 12:00:00 AM [facility], PC) (procedure) EDT Documentation of 02/28/2019 [facility] ([facility] current medications 12:00:00 AM [facility], [facility]) (procedure) EDT Documentation of 02/28/2019 [facility] ([facility] current medications 12:00:00 AM [facility], [facility]) (procedure) EDT Documentation of 02/28/2019 [facility] ([facility] current medications 12:00:00 AM [facility], PC) (procedure) EDT Documentation of 02/28/2019 [facility] ([facility] current medications 12:00:00 AM [facility], PC) (procedure) EDT Documentation of 02/28/2019 [facility] ([facility] current medications 12:00:00 AM [facility], [facility]) (procedure) EDT Documentation of 02/28/2019 [facility] ([facility] current medications 12:00:00 AM [facility], [facility]) (procedure) EDT OFFICE OUTPATIENT 02/28/2019 [facility] ([facility] VISIT 15 MINUTES 12:00:00 AM [facility], [facility] ) EDT Documentation of 02/13/2019 [facility] ([facility] current medications 12:00:00 AM [facility], [facility]) (procedure) EDT Documentation of 02/13/2019 [facility] ([facility] current medications 12:00:00 AM [facility], [facility]) (procedure) EDT Documentation of 02/13/2019 [facility] ([facility] current medications 12:00:00 AM [facility], PC) (procedure) EDT Documentation of 02/13/2019 [facility] ([facility] current medications 12:00:00 AM [facility], PC) (procedure) EDT Documentation of 02/13/2019 [facility] ([facility] current medications 12:00:00 AM [facility], PC) (procedure) EDT Documentation of 02/13/2019 [facility] ([facility] current medications 12:00:00 AM [facility], [facility]) (procedure) EDT Documentation of 02/13/2019 [facility] ([facility] current medications 12:00:00 AM [facility], PC) (procedure) EDT Documentation of 02/13/2019 [facility] ([facility] current medications 12:00:00 AM [facility], [facility]) (procedure) EDT Documentation of 02/13/2019 [facility] ([facility] current medications 12:00:00 AM [facility], [facility]) (procedure) EDT OFFICE OUTPATIENT 02/13/2019 [facility] ([facility] VISIT 25 MINUTES 12:00:00 AM [facility], [facility] ) EDT Documentation of 02/01/2019 [facility] ([facility] current medications 12:00:00 AM [facility], [facility]) (procedure) EDT Documentation of 02/01/2019 [facility] ([facility] current medications 12:00:00 AM [facility], PC) (procedure) EDT Documentation of 02/01/2019 [facility] ([facility] current medications 12:00:00 AM [facility], [facility]) (procedure) EDT OFFICE OUTPATIENT 02/01/2019 [facility] ([facility] VISIT 25 MINUTES 12:00:00 AM [facility], PC ) EDT OFFICE OUTPATIENT 01/04/2019 [facility] ([facility] VISIT 25 MINUTES 12:00:00 AM [facility], PC ) EDT OFFICE OUTPATIENT 12/21/2018 [facility] ([facility] VISIT 15 MINUTES 12:00:00 AM [facility], PC ) EDT Documentation of 11/30/2018 [facility] ([facility] current medications 12:00:00 AM [facility], [facility]) (procedure) EDT OFFICE OUTPATIENT 11/30/2018 [facility] ([facility] VISIT 15 MINUTES 12:00:00 AM [facility], PC ) EDT Documentation of 11/14/2018 [facility] ([facility] current medications 12:00:00 AM [facility], [facility]) (procedure) EDT Documentation of 11/14/2018 [facility] ([facility] current medications 12:00:00 AM [facility], PC) (procedure) EDT Documentation of 11/14/2018 [facility] ([facility] current medications 12:00:00 AM [facility], PC) (procedure) EDT Documentation of 11/14/2018 [facility] ([facility] current medications 12:00:00 AM [facility], PC) (procedure) EDT Documentation of 11/14/2018 [facility] ([facility] current medications 12:00:00 AM [facility], PC) (procedure) EDT Documentation of 11/14/2018 [facility] ([facility] current medications 12:00:00 AM [facility], PC) (procedure) EDT Documentation of 11/14/2018 [facility] ([facility] current medications 12:00:00 AM [facility], PC) (procedure) EDT Documentation of 11/14/2018 [facility] ([facility] current medications 12:00:00 AM [facility], PC) (procedure) EDT Documentation of 11/14/2018 [facility] ([facility] current medications 12:00:00 AM [facility], PC) (procedure) EDT Documentation of 11/14/2018 [facility] ([facility] current medications 12:00:00 AM [facility], [facility]) (procedure) EDT OFFICE OUTPATIENT 11/14/2018 [facility] ([facility] VISIT 15 MINUTES 12:00:00 AM Medical, PC ) EDT NONINVASIVE EAR/PULSE 11/14/2018 [facility] ([facility] OXIMETRY OVERNIGHT 12:00:00 AM Medical, PC) MONITOR EDT Documentation of 11/07/2018 [facility] ([facility] current medications 12:00:00 AM [facility], PC) (procedure) EST Documentation of 11/07/2018 [facility] ([facility] current medications 12:00:00 AM [facility], PC) (procedure) EST Documentation of 11/07/2018 [facility] ([facility] current medications 12:00:00 AM Medical, PC) (procedure) EST Documentation of 11/07/2018 [facility] ([facility] current medications 12:00:00 AM Medical, PC) (procedure) EST Documentation of 11/07/2018 [facility] ([facility] current medications 12:00:00 AM Medical, PC) (procedure) EST Documentation of 11/07/2018 [facility] ([facility] current medications 12:00:00 AM Medical, PC) (procedure) EST Documentation of 11/07/2018 [facility] ([facility] current medications 12:00:00 AM Medical, PC) (procedure) EST Documentation of 11/07/2018 [facility] ([facility] current medications 12:00:00 AM Medical, PC) (procedure) EST Documentation of 11/07/2018 [facility] ([facility] current medications 12:00:00 AM Medical, PC) (procedure) EST Documentation of 11/07/2018 [facility] ([facility] current medications 12:00:00 AM Medical, PC) (procedure) EST Documentation of 11/07/2018 [facility] ([facility] current medications 12:00:00 AM Medical, PC) (procedure) EST Documentation of 11/07/2018 [facility] ([facility] current medications 12:00:00 AM Medical, PC) (procedure) EST Documentation of 11/07/2018 [facility] ([facility] current medications 12:00:00 AM Medical, PC) (procedure) EST Documentation of 11/07/2018 [facility] ([facility] current medications 12:00:00 AM Medical, PC) (procedure) EST Documentation of 11/07/2018 [facility] ([facility] current medications 12:00:00 AM Medical, PC) (procedure) EST Documentation of 11/07/2018 [facility] ([facility] current medications 12:00:00 AM Medical, PC) (procedure) EST Documentation of 11/07/2018 [facility] ([facility] current medications 12:00:00 AM Medical, PC) (procedure) EST Documentation of 11/07/2018 [facility] ([facility] current medications 12:00:00 AM Medical, PC) (procedure) EST Documentation of 11/07/2018 [facility] ([facility] current medications 12:00:00 AM Medical, PC) (procedure) EST Documentation of 11/07/2018 [facility] ([facility] current medications 12:00:00 AM Medical, PC) (procedure) EST Documentation of 11/07/2018 [facility] ([facility] current medications 12:00:00 AM Medical, PC) (procedure) EST OFFICE OUTPATIENT 11/07/2018 [facility] ([facility] VISIT 15 MINUTES 12:00:00 AM Medical, PC ) EST NONINVASIVE EAR/PULSE 11/07/2018 [facility] ([facility] OXIMETRY OVERNIGHT 12:00:00 AM Medical, PC) MONITOR EST Documentation of 10/19/2018 [facility] ([facility] current medications 12:00:00 AM Medical, PC) (procedure) EST Documentation of 10/19/2018 [facility] ([facility] current medications 12:00:00 AM Medical, PC) (procedure) EST Documentation of 10/19/2018 [facility] ([facility] current medications 12:00:00 AM Medical, PC) (procedure) EST Documentation of 10/19/2018 [facility] ([facility] current medications 12:00:00 AM Medical, PC) (procedure) EST Documentation of 10/19/2018 [facility] ([facility] current medications 12:00:00 AM Medical, PC) (procedure) EST Documentation of 10/19/2018 [facility] ([facility] current medications 12:00:00 AM Medical, PC) (procedure) EST Documentation of 10/19/2018 [facility] ([facility] current medications 12:00:00 AM Medical, PC) (procedure) EST Documentation of 10/19/2018 [facility] ([facility] current medications 12:00:00 AM Medical, PC) (procedure) EST Documentation of 10/19/2018 [facility] ([facility] current medications 12:00:00 AM Medical, PC) (procedure) EST Documentation of 10/19/2018 [facility] ([facility] current medications 12:00:00 AM Medical, PC) (procedure) EST Documentation of 10/19/2018 [facility] ([facility] current medications 12:00:00 AM Medical, PC) (procedure) EST Documentation of 10/19/2018 [facility] ([facility] current medications 12:00:00 AM Medical, PC) (procedure) EST Documentation of 10/19/2018 [facility] ([facility] current medications 12:00:00 AM Medical, PC) (procedure) EST OFFICE OUTPATIENT 10/19/2018 [facility] ([facility] VISIT 15 MINUTES 12:00:00 AM Medical, PC ) EST Documentation of 09/19/2018 [facility] ([facility] current medications 12:00:00 AM Medical, PC) (procedure) EST Documentation of 09/19/2018 [facility] ([facility] current medications 12:00:00 AM Medical, PC) (procedure) EST Documentation of 09/19/2018 [facility] ([facility] current medications 12:00:00 AM Medical, PC) (procedure) EST Documentation of 09/19/2018 [facility] ([facility] current medications 12:00:00 AM Medical, PC) (procedure) EST Documentation of 09/19/2018 [facility] ([facility] current medications 12:00:00 AM Medical, PC) (procedure) EST Documentation of 09/19/2018 [facility] ([facility] current medications 12:00:00 AM Medical, PC) (procedure) EST OFFICE OUTPATIENT 09/19/2018 [facility] ([facility] VISIT 15 MINUTES 12:00:00 AM Medical, PC ) EST Documentation of 08/15/2018 [facility] ([facility] current medications 12:00:00 AM Medical, PC) (procedure) EST Documentation of 08/15/2018 [facility] ([facility] current medications 12:00:00 AM Medical, PC) (procedure) EST Documentation of 08/15/2018 [facility] ([facility] current medications 12:00:00 AM Medical, PC) (procedure) EST OFFICE OUTPATIENT 08/15/2018 [facility] ([facility] VISIT 15 MINUTES 12:00:00 AM Medical, PC ) EST Documentation of 08/01/2018 [facility] ([facility] current medications 12:00:00 AM Medical, PC) (procedure) EST Documentation of 08/01/2018 [facility] ([facility] current medications 12:00:00 AM Medical, PC) (procedure) EST Documentation of 08/01/2018 [facility] ([facility] current medications 12:00:00 AM Medical, PC) (procedure) EST Documentation of 08/01/2018 [facility] ([facility] current medications 12:00:00 AM Medical, PC) (procedure) EST Documentation of 08/01/2018 [facility] ([facility] current medications 12:00:00 AM Medical, PC) (procedure) EST Documentation of 08/01/2018 [facility] ([facility] current medications 12:00:00 AM Medical, PC) (procedure) EST Documentation of 08/01/2018 [facility] ([facility] current medications 12:00:00 AM Medical, PC) (procedure) EST OFFICE OUTPATIENT 08/01/2018 [facility] ([facility] VISIT 15 MINUTES 12:00:00 AM Medical, PC ) EST Federally qualified 06/18/2018 eCW2 ([facility] 12:00:00 AM Health Care) visit, established EDT patient; a medically-necessary, [id number] encounter (one-on-one) between an established patient and a [facility] practitioner during which time one or more [facility] services are rendered and includes a typical bundle of medicare-covered services that would be furnished saloon keeper to a patient receiving a [facility] visit CUL PRSMPTV PTHGNC 06/18/2018 eCW2 ([facility] ORGANISM SCRN W/COLONY 12:00:00 AM Healt Care) ESTIMJ EDT A-Influenza 06/14/2018 eCW2 ([facility] 12:00:00 AM Health Care) EDT IM ADM THRU 18YR ANY 06/14/2018 eCW2 ([facility] yana Zhao RTE 1ST/ONLY COMPT 12:00:00 AM Health Ca re) VAC/TOX EDT Federally qualified 06/14/2018 eCW2 ([facility] 12:00:00 AM Health Care) visit, established EDT patient; a medically-necessary, [id number]-[id number] encounter (one-on-one) between an established patient and a [facility] practitioner during which time one or more [facility] services are rendered and includes a typical bundle of medicare-covered services that would be furnished saloon keeper to a patient receiving a [facility] visit PRESSURIZED/NONPRESSUR 06/08/2018 eCW2 ([facility] IZED INHALATION 12:00:00 AM Health Care) TREATMENT EDT OFFICE OUTPATIENT 02/16/2018 [facility] ([facility] VISIT 25 MINUTES 12:00:00 AM Medical, PC ) EDT Documentation of 12/08/2017 [facility] ([facility] current medications 12:00:00 AM Medical, PC) (procedure) EDT OFFICE OUTPATIENT 12/08/2017 [facility] ([facility] VISIT 25 MINUTES 12:00:00 AM Medical, PC ) EDT Documentation of 09/16/2017 [facility] ([facility] current medications 12:00:00 AM Medical, PC) (procedure) EST Documentation of 09/16/2017 [facility] ([facility] current medications 12:00:00 AM Medical, PC) (procedure) EST Documentation of 09/16/2017 [facility] ([facility] current medications 12:00:00 AM Medical, PC) (procedure) EST Documentation of 09/16/2017 [facility] ([facility] current medications 12:00:00 AM Medical, PC) (procedure) EST Documentation of 09/16/2017 [facility] ([facility] current medications 12:00:00 AM Medical, PC) (procedure) EST OFFICE OUTPATIENT 09/16/2017 [facility] ([facility] VISIT 25 MINUTES 12:00:00 AM Medical, PC ) EST Documentation of 07/15/2017 [facility] ([facility] current medications 12:00:00 AM Medical, PC) (procedure) EST Documentation of 07/15/2017 [facility] ([facility] current medications 12:00:00 AM Medical, PC) (procedure) EST Documentation of 07/15/2017 [facility] ([facility] current medications 12:00:00 AM Medical, PC) (procedure) EST Documentation of 07/15/2017 [facility] ([facility] current medications 12:00:00 AM Medical, PC) (procedure) EST Documentation of 07/15/2017 [facility] ([facility] current medications 12:00:00 AM Medical, PC) (procedure) EST Documentation of 07/15/2017 [facility] ([facility] current medications 12:00:00 AM Medical, PC) (procedure) EST OFFICE OUTPATIENT 07/15/2017 [facility] ([facility] VISIT 15 MINUTES 12:00:00 AM Medical, PC ) EST Documentation of 03/18/2017 [facility] ([facility] current medications 12:00:00 AM Medical, PC) (procedure) EDT Documentation of 03/18/2017 [facility] ([facility] current medications 12:00:00 AM Medical, PC) (procedure) EDT Documentation of 03/18/2017 [facility] ([facility] current medications 12:00:00 AM Medical, PC) (procedure) EDT OFFICE OUTPATIENT 03/18/2017 [facility] ([facility] VISIT 15 MINUTES 12:00:00 AM Medical, PC ) EDT Documentation of 12/28/2016 [facility] ([facility] current medications 12:00:00 AM Medical, PC) (procedure) EDT Documentation of 12/28/2016 [facility] ([facility] current medications 12:00:00 AM Medical, PC) (procedure) EDT Documentation of 12/28/2016 [facility] ([facility] current medications 12:00:00 AM Medical, PC) (procedure) EDT Documentation of 12/28/2016 [facility] ([facility] current medications 12:00:00 AM Medical, PC) (procedure) EDT Documentation of 12/28/2016 [facility] ([facility] current medications 12:00:00 AM Medical, PC) (procedure) EDT Documentation of 12/28/2016 [facility] ([facility] current medications 12:00:00 AM Medical, PC) (procedure) EDT Documentation of 12/28/2016 [facility] ([facility] current medications 12:00:00 AM Medical, PC) (procedure) EDT OFFICE OUTPATIENT 12/28/2016 [facility] ([facility] VISIT 15 MINUTES 12:00:00 AM Medical, PC ) EDT Documentation of 10/30/2016 [facility] ([facility] current medications 12:00:00 AM Medical, PC) (procedure) EST Documentation of 10/30/2016 [facility] ([facility] current medications 12:00:00 AM Medical, PC) (procedure) EST Documentation of 10/30/2016 [facility] ([facility] current medications 12:00:00 AM Medical, PC) (procedure) EST Documentation of 10/30/2016 [facility] ([facility] current medications 12:00:00 AM Medical, PC) (procedure) EST Documentation of 10/30/2016 [facility] ([facility] current medications 12:00:00 AM Medical, PC) (procedure) EST Documentation of 10/30/2016 [facility] ([facility] current medications 12:00:00 AM Medical, PC) (procedure) EST OFFICE OUTPATIENT 10/30/2016 [facility] ([facility] VISIT 15 MINUTES 12:00:00 AM Medical, PC ) EST Documentation of 09/11/2016 [facility] ([facility] current medications 12:00:00 AM Medical, PC) (procedure) EST Documentation of 09/11/2016 [facility] ([facility] current medications 12:00:00 AM Medical, PC) (procedure) EST Documentation of 09/11/2016 [facility] ([facility] current medications 12:00:00 AM Medical, PC) (procedure) EST Documentation of 09/11/2016 [facility] ([facility] current medications 12:00:00 AM Medical, PC) (procedure) EST Documentation of 09/11/2016 [facility] ([facility] current medications 12:00:00 AM Medical, PC) (procedure) EST OFFICE OUTPATIENT 09/11/2016 [facility] ([facility] VISIT 25 MINUTES 12:00:00 AM Medical, PC ) EST No Known procedures No Known procedures e CW2 ([facility]) No Known procedures No Known procedures e CW2 ([facility]) No Known procedures No Known procedures e CW2 ([facility]) Results ID Date Data Source [id number] 05/20/2020 01:05:00 PM EDT [facility] Name Value Range Interpretation Description Data Sup porting Code Source(s) Document(s ) SARS [facility] coronavirus 2 RNA This lab was ordered by [facility] and reported by [facility]. ID Date Data Source [id number] 04/08/2020 12:00:00 AM EDT [facility] Name Value Range Interpretation Code Description Data Courtney rce(s) Supporting Document(s ) 2019-nCoV [facility] RNA XXX VENESSA+probe- Imp This lab was ordered by [facility] and reported by [facility]. ID Date Data Source [id number] 10/10/2019 12:00:00 AM EST [facility] ([facility] Name Value Range Interpretation Code Description Data Supporting Source(s) Document(s ) Ferritin, 423 ng/mL Above high normal [facility] ([facility]) ID Date Data Source [id number] 10/10/2019 12:00:00 AM EST [facility] ([facility]) Name Value Range Interpretation Description Data Sup porting Code Source(s) Document(s ) Sedimentation 12 mm/hr Normal (applies [facility] (St Rate-Westergren to non-numeric [facility] results) Medical, ) ID Date Data Source [id number] 10/10/2019 12:00:00 AM EST [facility] ([facility]) Name Value Range Interpretation Description Data Sup porting Code Source(s) Document(s ) Vitamin B12 445 pg/mL Normal (applies to [facility] (S t non-numeric [facility] results) Medical, ) Folate 7.3 ng/mL Normal (applies to [facility] (St (Folic non-numeric [facility] Acid), Serum results) Medical, ) ID Date Data Source [id number] 10/10/2019 12:00:00 AM EST [facility] ([facility] Name Value Range Interpretation Description Data Sup porting Code Source(s) Document(s ) Iron 242 ug/dL Below low normal [facility] ([facility] Bind.Cap.(TIBC [facility] ) Medical, ) UIBC 201 ug/dL Normal (applies to [facility] (St non-numeric [facility] results) [facility], ) Iron 41 ug/dL Normal (applies to [facility] (St [Mass/volume] non-numeric [facility] in Serum or results) [facility], ) Plasma Iron 17 % Normal (applies to [facility] (St saturation non-numeric [facility] [Mass results) [facility], ) Fraction] in Serum or Plasma ID Date Data Source [id number] 10/10/2019 12:00:00 AM EST [facility] ([facility], ) Name Value Range Interpretation Description Data Sup porting Code Source(s) Document(s ) Leukocytes 9.1 Normal (applies [facility] (St [#/volume] in x10E3/uL to non-numeric [facility] Blood by results) [facility], ) Automated count Hemoglobin 11.3 Normal (applies [facility] (St [Mass/volume] in g/dL to non-numeric [facility] Blood results) [facility], ) Erythrocytes 3.66 Below low normal [facility] (St [#/volume] in x10E6/uL [facility] Blood by [facility], ) Automated count MCH 30.9 pg Normal (applies [facility] (St to non-numeric [facility] results) [facility], ) MCV 91 fL Normal (applies [facility] (St to non-numeric [facility] results) [facility], ) Hematocrit 33.2 % Below low normal [facility] (St [Volume [facility] Fraction] of [facility], ) Blood by Automated count MCHC 34.0 Normal (applies [facility] (St g/dL to non-numeric [facility] results) [facility], ) RDW 14.9 % Normal (applies [facility] (St to non-numeric [facility] results) Medical, ) Platelets 289 Normal (applies [facility] (St [#/area] in x10E3/uL to non-numeric [facility] Blood by results) [facility], ) Microscopy high power field Neutrophils [#] 86 % Normal (applies MEDGEN ( St in Body fluid by to non-numeric [facility] Manual count results) [facility], ) Lymphs 12 % Normal (applies MEDGEN (St to non-numeric [facility] results) [facility], ) Monocytes 2 % Normal (applies MEDGEN (St [#/volume] in to non-numeric [facility] Cord blood results) Medical, ) Neutrophils 7.7 Above high normal MEDGEN (St (Absolute) x10E3/uL [facility], ) Basos 0 % Normal (applies MEDGEN (St to non-numeric [facility] results) [facility], ) Eos 0 % Normal (applies MEDGEN (St to non-numeric [facility]'s results) [facility], ) Lymphs 1.1 Normal (applies MEDGEN (St (Absolute) x10E3/uL to non-numeric [facility] results) [facility], ) Monocytes(Absolu 0.2 Normal (applies MEDGEN (St te) x10E3/uL to non-numeric [facility] results) Medical, ) Eos (Absolute) 0.0 Normal (applies MEDGEN (S t x10E3/uL to non-numeric [facility] results) [facility], ) Baso (Absolute) 0.0 Normal (applies MEDGEN ( St x10E3/uL to non-numeric [facility] results) Medical, ) Immature Grans 0.0 Normal (applies MEDGEN (S t (Abs) x10E3/uL to non-numeric [facility] results) [facility], ) Immature 0 % Normal (applies MEDGEN (St Granulocytes to non-numeric [facility] results) [facility], ) ID Date Data Source [id number] 08/16/2019 12:00:00 AM EST MED[facility] ([facility], ) Name Value Range Interpretation Code Description Data Courtney rce(s) Supporting Document(s ) TSH 2.120 Normal (applies to MEDGEN (St uIU/mL non-numeric results) [facility]) ID Date Data Source [id number] 08/16/2019 12:00:00 AM EST [facility] ([facility], ) Name Value Range Interpretation Description Data Sup porting Code Source(s) Document(s ) Phenotype (PI) MM Normal (applies MEDGEN (S t to non-numeric [facility] results) [facility], ) Alpha 1 127 mg/dL Normal (applies MEDGEN (St antitrypsin to non-numeric [facility] [Mass/volume] results) [facility], ) in Serum or Plasma ID Date Data Source [id number] 08/16/2019 12:00:00 AM EST [facility] ([facility], ) Name Value Range Interpretation Description Data Sup porting Code Source(s) Document(s ) Cholesterol 182 Normal (applies MEDGEN (St [Mass/volume] in mg/dL to non-numeric [facility] Serum or Plasma results) [facility], PC) HDL Cholesterol 50 mg/dL Normal (applies MEDGEN ( St to non-numeric [facility] results) [facility], [facility]) Triglyceride 164 Above high normal MEDGEN (S t [Mass/volume] in mg/dL [facility] Serum or Plasma Medical, PC) LDL Cholesterol 99 mg/dL Normal (applies MEDGEN ( St Calc to non-numeric [facility] results) [facility], PC) VLDL Cholesterol 33 mg/dL Normal (applies MEDGEN (St Zeenat to non-numeric [facility] results) [facility], [facility]) ID Date Data Source [id number] 08/16/2019 12:00:00 AM EST [facility] ([facility]) Name Value Range Interpretation Description Data Sup porting Code Source(s) Document(s ) Glucose 98 mg/dL Normal (applies MEDGEN (St [Mass/volume] in to non-numeric [facility] Urine collected for results) Medical, unspecified PC) duration Urea nitrogen 5 mg/dL Below low normal MEDGEN (S t [Mass/volume] in [facility] Serum or Plasma Medical, PC) eGFR If Africn Am 120 Normal (applies MEDGEN (St mL/min/1 to non-numeric [facility] .73 results) Medical, PC) Creatinine 0.68 Normal (applies MEDGEN (St [Interpretation] in mg/dL to non-numeric [facility] s Urine results) Medical, PC) eGFR If NonAfricn 105 Normal (applies MEDGEN (St Am mL/min/1 to non-numeric [facility] .73 results) Medical, PC) Sodium 144 Normal (applies MEDGEN (St [Moles/volume] in mmol/L to non-numeric [facility] Serum or Plasma results) [facility], PC) BUN/Creatinine 7 Below low normal MEDGEN ( St Ratio [facility], [facility]) Potassium 3.5 Normal (applies MEDGEN (St [Mass/volume] in mmol/L to non-numeric [facility] Blood results) [facility], PC) Chloride 105 Normal (applies MEDGEN (St [Moles/volume] in mmol/L to non-numeric [facility] Serum or Plasma results) Medical, PC) Carbon dioxide, 25 Normal (applies MEDGEN ( St total mmol/L to non-numeric [facility] [Moles/volume] in results) Medical, Serum or Plasma PC) Calcium 9.3 Normal (applies MEDGEN (St [Moles/volume] in mg/dL to non-numeric [facility] Urine collected for results) Medical, unspecified PC) duration Protein 6.7 g/dL Normal (applies MEDGEN (St [Mass/volume] in to non-numeric [facility] Serum or Plasma results) Medical, ) Globulin, Total 2.7 g/dL Normal (applies MEDGEN ( St to non-numeric [facility] results) Medical, ) Microalbumin 4.0 g/dL Normal (applies MEDGEN (St [Mass/time] in to non-numeric [facility] Urine collected for results) Medical, unspecified PC) duration Alkaline 60 IU/L Normal (applies MEDGEN (St phosphatase to non-numeric [facility] [Enzymatic results) Medical, activity/volume] in PC) Serum, Plasma or Blood A/G Ratio 1.5 Normal (applies [facility]GEN (St to non-numeric [facility] results) Medical, PC) Bilirubin.total 0.5 Normal (applies MEDGEN ( St [Mass/volume] in mg/dL to non-numeric [facility] Serum or Plasma results) Medical, PC) Alanine 9 IU/L Normal (applies MEDGEN (St aminotransferase to non-numeric [facility] [Enzymatic results) Medical, activity/volume] in PC) Serum or Plasma Aspartate 15 IU/L Normal (applies MEDGEN (St aminotransferase to non-numeric [facility] [Enzymatic results) Medical, activity/volume] in PC) Serum or Plasma ID Date Data Source [id number] 08/16/2019 12:00:00 AM EST [facility] ([facility]) Name Value Range Interpretation Description Data Sup porting Code Source(s) Document(s ) Leukocytes 7.6 Normal (applies MEDGEN (St [#/volume] in x10E3/uL to non-numeric [facility] Blood by results) Medical, PC) Automated count Erythrocytes 3.35 Below low normal MEDGEN (St [#/volume] in x10E6/uL [facility] Blood by Medical, PC) Automated count Hematocrit 31.8 % Below low normal MEDGEN (St [Volume [facility] Fraction] of Medical, ) Blood by Automated count Hemoglobin 10.8 Below low normal [facility] (St [Mass/volume] in g/dL [facility] Blood [facility], ) MCH 32.2 pg Normal (applies MEDGEN (St to non-numeric [facility] results) [facility], ) MCV 95 fL Normal (applies MEDGEN (St to non-numeric [facility] results) [facility], ) MCHC 34.0 Normal (applies MEDGEN (St g/dL to non-numeric [facility] results) [facility], ) RDW 14.8 % Normal (applies MEDGEN (St to non-numeric [facility] results) [facility], ) Platelets 241 Normal (applies MEDGEN (St [#/area] in x10E3/uL to non-numeric [facility] Blood by results) [facility], ) Microscopy high power field Lymphs 26 % Normal (applies MEDGEN (St to non-numeric [facility] results) [facility], ) Neutrophils [#] 66 % Normal (applies MEDGEN ( St in Body fluid by to non-numeric [facility] Manual count results) [facility], ) Monocytes 7 % Normal (applies MEDGEN (St [#/volume] in to non-numeric [facility] Cord blood results) [facility], ) Eos 1 % Normal (applies MEDGEN (St to non-numeric [facility] results) [facility], ) Neutrophils 5.0 Normal (applies MEDGEN (St (Absolute) x10E3/uL to non-numeric [facility] results) [facility], ) Lymphs 2.0 Normal (applies MEDGEN (St (Absolute) x10E3/uL to non-numeric [facility] results) [facility], ) Basos 0 % Normal (applies MEDGEN (St to non-numeric [facility] results) [facility], ) Eos (Absolute) 0.1 Normal (applies MEDGEN (S t x10E3/uL to non-numeric [facility] results) [facility], ) Monocytes(Absolu 0.5 Normal (applies MEDGEN (St te) x10E3/uL to non-numeric [facility] results) [facility], ) Immature 0 % Normal (applies MEDGEN (St Granulocytes to non-numeric [facility] results) [facility], ) Baso (Absolute) 0.0 Normal (applies MEDGEN ( St x10E3/uL to non-numeric [facility] results) Medical, PC) Immature Grans 0.0 Normal (applies MEDGEN (S t (Abs) x10E3/uL to non-numeric [facility] results) [facility], [facility]) ID Date Data Source CULTURE, THROAT, ROUTINE 06/18/2018 12:00:00 AM EDT eCW2 ([facility] ([id number] Care) Name Value Range Interpretation Description Data Sup porting Code Source(s) Document(s ) Bacteria NORMAL NORMAL CULTURE, eCW2 identified in RESPIRATO KELSY THROAT ([facility] by [facility]) Procedure Social History Code Duration Value Status Description Data Source(s ) Smoking 05/15/2020 Never Smoker completed Never Smoker eCW3 ([facility] 12:00:00 AM [facility]) Smoking 04/08/2020 Never Smoker completed Never Smoker eCW3 ([facility] 12:00:00 AM [facility]) Smoking 04/08/2020 Never Smoker completed Never Smoker eCW3 ([facility] 12:00:00 AM [facility]) Smoking 03/14/2020 Often works completed Often works MEDGEN (St 12:00:00 AM EDT outdoors for outdoors for Meals [facility], Meals on Wheels on Wheels Never PC) Never smoked No smoked No ETOH ETOH Smoking 03/14/2020 Unknown if ever completed Unknown if ever MEDG EN (St 12:00:00 AM EDT smoked smoked [facility] Or dicgene, ) Smoking 02/26/2020 Never Smoker completed Never Smoker eCW3 ([facility] 12:00:00 AM [facility]) Smoking 02/09/2020 Never Smoker completed Never Smoker eCW3 ([facility] 12:00:00 AM [facility]) Smoking 02/09/2020 Never Smoker completed Never Smoker eCW3 ([facility] 12:00:00 AM [facility]) Smoking 01/05/2020 Never Smoker completed Never Smoker eCW3 ([facility] 12:00:00 AM [facility]) Smoking 12/18/2019 Never Smoker completed Never Smoker eCW3 ([facility] 12:00:00 AM [facility]) Smoking 11/23/2019 Never Smoker completed Never Smoker [facility] 11/23/2019 Never Smoker completed Never Smoker eCW3 ([facility] 12:00:00 AM [facility]) Smoking 11/23/2019 Never Smoker completed Never Smoker eCW3 ([facility] 12:00:00 AM [facility]) Smoking 09/15/2019 Never Smoker completed Never Smoker eCW3 ([facility] 12:00:00 AM [facility]) Smoking 06/21/2019 Never Smoker completed Never Smoker eCW3 ([facility] 12:00:00 AM [facility]) Smoking 05/18/2019 Never Smoker completed Never Smoker eCW3 ([facility] 12:00:00 AM [facility]) Smoking 12/19/2018 Never Smoker completed Never Smoker eCW3 ([facility] 12:00:00 AM [facility]) Never Smoker completed Never Smoker eCW3 ([facility]) Never Smoker completed Never Smoker eCW3 ([facility]) Never Smoker completed Never Smoker eCW3 ([facility]) Never Smoker completed Never Smoker eCW3 ([facility]) Never Smoker completed Never Smoker eCW3 ([facility]) Never Smoker completed Never Smoker eCW3 ([facility]) Never Smoker completed Never Smoker eCW3 ([facility]) Never Smoker completed Never Smoker eCW3 ([facility]) Never Smoker completed Never Smoker eCW3 ([facility]) Never Smoker completed Never Smoker eCW3 ([facility]) Never Smoker completed Never Smoker eCW3 ([facility]) Never Smoker completed Never Smoker eCW3 ([facility]) Smoking Unknown if ever completed Unknown if ever Lm Hidalgo smoked [facility] Never Smoker completed Never Smoker eCW3 ([facility]) Never Smoker completed Never Smoker eCW3 ([facility]) Smoking Unknown if ever completed Unknown if ever eCW2 ([facility] smoked smoked [facility]) Smoking Unknown if ever completed Unknown if ever eCW2 ([facility] smoked smoked [facility]) Smoking Unknown if ever completed Unknown if ever eCW2 ([facility] smoked smoked [facility]) Smoking Unknown if ever completed Unknown if ever eCW2 ([place] smoked smoked [facility]) Smoking Never Smoker completed Never Smoker eCW2 ([facility]) Smoking Never Smoker completed Never Smoker eCW2 ([facility]) Never Smoker completed Never Smoker eCW3 ([facility]) Vital Signs ID Date Data Source UNK Name Value Range Interpretation Code Description Data Source(s) Heart rate 86 /min 86 /min [facility] ([facility] , ) Inhaled oxygen 98 % 98 % MEDGEN ([facility], ) Body mass index 36.6 kg/m2 36.6 kg/m2 MEDGEN (S t (BMI) [Ratio] [facility], ) Diastolic blood 70 mm[Hg] 70 mm[Hg] MEDGEN (S pressure [facility]) Systolic blood 120 mm[Hg] 120 mm[Hg] MED[facility] ([facility]) Body weight 213 lb 213 lb [facility] ([facility] Body height 64 in 64 in [facility] ([facility]) Heart rate 90 /min 90 /min [facility] ([facility] Respiratory rate 18 /min 18 /min [facility] ( [facility] Body mass index 37.4 kg/m2 37.4 kg/m2 MEDGEN (S t (BMI) [Ratio] [facility], ) Diastolic blood 90 mm[Hg] 90 mm[Hg] MEDGEN (S t pressure [facility]) Systolic blood 150 mm[Hg] 150 mm[Hg] MEDGEN ([facility] , ) Body weight 218 lb 218 lb [facility] ([facility] Body height 64 in 64 in [facility] ([facility]) Heart rate 100 /min 100 /min [facility] ([facility] Respiratory rate 18 /min 18 /min [facility] ( [facility] Inhaled oxygen 98 % 98 % MEDGEN ([facility], ) Body mass index 37.4 kg/m2 37.4 kg/m2 MEDGEN (S t (BMI) [Ratio] [facility], ) Diastolic blood 90 mm[Hg] 90 mm[Hg] MEDGEN (S t pressure [facility]) Systolic blood 130 mm[Hg] 130 mm[Hg] MED[facility] ([facility]) Body weight 218 lb 218 lb [facility] ([facility] Body height 64 in 64 in [facility] ([facility] Body temperature 97.6 F 97.6 F [facility] ( [facility] Body mass index 37.4 kg/m2 37.4 kg/m2 MEDGEN (S t (BMI) [Ratio] [facility], ) Diastolic blood 98 mm[Hg] 98 mm[Hg] MEDGEN (S t [facility]) Systolic blood 140 mm[Hg] 140 mm[Hg] MEDGEN ([facility]) Body weight 218 lb 218 lb [facility] ([facility] Body height 64 in 64 in [facility] ([facility] Heart rate 92 /min 92 /min [facility] ([facility] Respiratory rate 16 /min 16 /min [facility] ( [facility] Body temperature 97.6 F 97.6 F [facility] ( [facility] Inhaled oxygen 99 % 99 % MEDGEN ([facility]) Body mass index 37.8 kg/m2 37.8 kg/m2 MEDGEN (S t (BMI) [Ratio] [facility], ) Diastolic blood 82 mm[Hg] 82 mm[Hg] MEDGEN (S t pressure [facility]) Systolic blood 126 mm[Hg] 126 mm[Hg] MEDGEN ([facility]) Body weight 220 lb 220 lb [facility] ([facility] Body height 64 in 64 in [facility] ([facility] Heart rate 91 /min 91 /min [facility] ([facility] Body temperature 97.6 F 97.6 F [facility] ( [facility] Inhaled oxygen 99 % 99 % MEDGEN ([facility]) Body mass index 37.8 kg/m2 37.8 kg/m2 MEDGEN (S t (BMI) [Ratio] [facility], ) Diastolic blood 84 mm[Hg] 84 mm[Hg] MEDGEN (S t [facility]) Systolic blood 127 mm[Hg] 127 mm[Hg] MEDGEN ([facility]) Body weight 220 lb 220 lb [facility] ([facility] Body height 64 in 64 in [facility] ([facility]) Heart rate 89 /min 89 /min [facility] ([facility] Respiratory rate 12 /min 12 /min [facility] ( [facility] Inhaled oxygen 98 % 98 % MEDGEN ([facility]) Body mass index 38.6 kg/m2 38.6 kg/m2 MEDGEN (S t (BMI) [Ratio] [facility], ) Diastolic blood 80 mm[Hg] 80 mm[Hg] MEDGEN ([facility]) Systolic blood 132 mm[Hg] 132 mm[Hg] MEDGEN ([facility]) Body weight 225 lb 225 lb [facility] ([facility] Body height 64 in 64 in [facility] ([facility]) Heart rate 90 /min 90 /min [facility] ([facility] Respiratory rate 12 /min 12 /min [facility] ( [facility] Body temperature 98.2 F 98.2 F [facility] ( [facility] Inhaled oxygen 98 % 98 % MEDGEN ([facility]) Body mass index 38.6 kg/m2 38.6 kg/m2 MEDGEN (S t (BMI) [Ratio] [facility], ) Diastolic blood 80 mm[Hg] 80 mm[Hg] MEDGEN (S t [facility]) Systolic blood 126 mm[Hg] 126 mm[Hg] MEDGEN ([facility]) Body weight 225 lb 225 lb [facility] ([facility] Body height 64 in 64 in [facility] ([facility] Diastolic blood 82 mm[Hg] 82 mm[Hg] eCW3 ([facility]) Systolic blood 130 mm[Hg] 130 mm[Hg] eCW3 ([facility]) Body temperature 98.0 [degF] 98.0 [degF] eCW3 ( [facility]) Heart rate 20 /min 20 /min eCW3 ([facility]) Body mass index 38.70 kg/m2 38.70 kg/m2 eCW3 (H [facility] (BMI) [Ratio] [facility]) Body weight 222 [lb_av] 222 [lb_av] eCW3 ([facility]) Body height 63.50 63.50 [in_i] eCW3 ([facility] [in_i] [facility]) Heart rate 95 /min 95 /min MEDGEN ([facility] [place] , ) Inhaled oxygen 98 % 98 % MEDGEN ([facility], ) Body mass index -1 kg/m2 -1 kg/m2 MEDGEN (S t (BMI) [Ratio] [facility], ) Diastolic blood 100 mm[Hg] 100 mm[Hg] MEDGEN (S t [facility]) Systolic blood 160 mm[Hg] 160 mm[Hg] MEDGEN ([facility]) Heart rate 75 /min 75 /min MEDGEN ([facility] [place] , ) Inhaled oxygen 99 % 99 % MEDGEN ([facility], ) Diastolic blood 83 mm[Hg] 83 mm[Hg] MEDGEN (S t [facility] , ) Systolic blood 131 mm[Hg] 131 mm[Hg] MEDGEN ([facility] , ) Diastolic blood 94 mm[Hg] 94 mm[Hg] eCW3 ([facility]) Systolic blood 137 mm[Hg] 137 mm[Hg] eCW3 ([facility]) Body temperature 98.1 [degF] 98.1 [degF] eCW3 ( [facility]) Heart rate 20 /min 20 /min eCW3 ([facility]) Body mass index 39.23 kg/m2 39.23 kg/m2 eCW3 (H [facility] (BMI) [Ratio] [facility]) Body weight 225 [lb_av] 225 [lb_av] eCW3 ([facility]) Body height 63.50 63.50 [in_i] eCW3 ([facility] [in_i] [facility]) Diastolic blood 71 mm[Hg] 71 mm[Hg] eCW3 ([facility]) Systolic blood 110 mm[Hg] 110 mm[Hg] eCW3 ([facility]) Body temperature 98.2 [degF] 98.2 [degF] eCW3 ( [facility]) Heart rate 20 /min 20 /min eCW3 ([facility]) Body mass index 39.23 kg/m2 39.23 kg/m2 eCW3 ([facility] (BMI) [Ratio] [facility]) Body weight 225 [lb_av] 225 [lb_av] eCW3 ([facility]) Body height 63.50 63.50 [in_i] eCW3 ([facility] [in_i] [facility]) Respiratory rate 14 /min 14 /min MEDGEN ( [facility] [place] [facility] ) Body temperature 98 F 98 F [facility] ( [facility] Body mass index 38.1 kg/m2 38.1 kg/m2 MEDGEN (S t (BMI) [Ratio] [facility], ) Diastolic blood 100 mm[Hg] 100 mm[Hg] MEDGEN (S pressure [facility]) Systolic blood 140 mm[Hg] 140 mm[Hg] MEDGEN ([facility]) Body weight 222 lb 222 lb [facility] ([facility] Body height 64 in 64 in [facility] ([facility] Heart rate 82 /min 82 /min [facility] ([facility]) Respiratory rate 14 /min 14 /min MED[facility] ( [facility] Body temperature 98 F 98 F MED[facility] ( [facility] Inhaled oxygen 100 % 100 % MEDGEN ([facility], ) Body mass index 38.4 kg/m2 38.4 kg/m2 MEDGEN (S t (BMI) [Ratio] [facility], ) Diastolic blood 84 mm[Hg] 84 mm[Hg] MEDGEN ([facility]) Systolic blood 142 mm[Hg] 142 mm[Hg] MEDGEN ([facility]) Body weight 224 lb 224 lb [facility] ([facility] Body height 64 in 64 in [facility] ([facility] Diastolic blood 83 mm[Hg] 83 mm[Hg] eCW3 ([facility]) Systolic blood 134 mm[Hg] 134 mm[Hg] eCW3 ([facility]) Body temperature 98.2 [degF] 98.2 [degF] eCW3 ( [facility]) Heart rate 20 /min 20 /min eCW3 ([facility]) Body mass index 39.58 kg/m2 39.58 kg/m2 eCW3 ([facility] (BMI) [Ratio] [facility]) Body weight 227 [lb_av] 227 [lb_av] eCW3 ([facility]) Body height 63.5 [in_i] 63.5 [in_i] eCW3 ([facility]) Heart rate 105 /min 105 /min [facility] ([facility] Inhaled oxygen 97 % 97 % MEDGEN ([facility]) Body mass index 38.4 kg/m2 38.4 kg/m2 MEDGEN (S t (BMI) [Ratio] [facility]) Diastolic blood 86 mm[Hg] 86 mm[Hg] MEDGEN ([facility]) Systolic blood 134 mm[Hg] 134 mm[Hg] MEDGEN ([facility]) Body weight 224 lb 224 lb [facility] ([facility] Body height 64 in 64 in [facility] ([facility] Heart rate 94 /min 94 /min [facility] ([facility] Body temperature 98.6 F 98.6 F MED[facility] ( [facility] Inhaled oxygen 100 % 100 % MEDGEN ([facility]) Body mass index 38.4 kg/m2 38.4 kg/m2 MEDGEN (S t (BMI) [Ratio] [facility]) Diastolic blood 81 mm[Hg] 81 mm[Hg] MEDGEN (S t [facility]) Systolic blood 130 mm[Hg] 130 mm[Hg] MEDGEN ([facility]) Body weight 224 lb 224 lb MED[facility] ([facility] Body height 64 in 64 in [facility] ([facility] Heart rate 79 /min 79 /min [facility] ([facility] Respiratory rate 14 /min 14 /min MED[facility] ( [facility] Body temperature 97.4 F 97.4 F MED[facility] ( [facility] Inhaled oxygen 98 % 98 % MEDGEN ([facility]) Body mass index 38.4 kg/m2 38.4 kg/m2 MEDGEN (S t (BMI) [Ratio] [facility]) Diastolic blood 104 mm[Hg] 104 mm[Hg] MEDGEN (S t [facility]) Systolic blood 151 mm[Hg] 151 mm[Hg] MEDGEN ([facility]) Body weight 224 lb 224 lb MED[facility] ([facility] Body height 64 in 64 in [facility] ([facility] Diastolic blood 74 mm[Hg] 74 mm[Hg] eCW3 ([facility]) Systolic blood 114 mm[Hg] 114 mm[Hg] eCW3 ([facility]) Body temperature 98.1 [degF] 98.1 [degF] eCW3 ( [facility]) Heart rate 20 /min 20 /min eCW3 ([facility]) Body mass index 38.10 kg/m2 38.10 kg/m2 eCW3 ([facility] (BMI) [Ratio] [facility]) Body weight 222 [lb_av] 222 [lb_av] eCW3 ([facility]) Body height 64 [in_i] 64 [in_i] eCW3 ([facility]) Heart rate 93 /min 93 /min MED[facility] ([facility] Respiratory rate 14 /min 14 /min [facility] ( [facility] Body temperature 98.7 F 98.7 F MED[facility] ( [facility] Inhaled oxygen 98 % 98 % MEDGEN ([facility], ) Diastolic blood 83 mm[Hg] 83 mm[Hg] MEDGEN (S t pressure [facility] [place] , ) Systolic blood 136 mm[Hg] 136 mm[Hg] MEDGEN ([facility] , ) Heart rate 105 /min 105 /min MEDGEN ([facility] [place] , ) Respiratory rate 14 /min 14 /min MEDGEN ( [facility] [place] , ) Inhaled oxygen 98 % 98 % MEDGEN ( concentration [facility] [place], ) Diastolic blood 82 mm[Hg] 82 mm[Hg] MEDGEN (S t pressure [facility] [place] , ) Systolic blood 128 mm[Hg] 128 mm[Hg] MEDGEN ([facility] , ) Body height 65 in 65 in MEDGEN ([facility] [place] , ) Diastolic blood 78 mm[Hg] 78 mm[Hg] eCW3 ([facility]) Systolic blood 120 mm[Hg] 120 mm[Hg] eCW3 ([facility]) Body temperature 98.4 [degF] 98.4 [degF] eCW3 ( [facility]) Heart rate 20 /min 20 /min eCW3 ([facility]) Body mass index 37.93 kg/m2 37.93 kg/m2 eCW3 (H udson (BMI) [Ratio] [facility]) Body weight 221 [lb_av] 221 [lb_av] eCW3 ([facility]) Body height 64 [in_i] 64 [in_i] eCW3 ([facility]) Heart rate 117 /min 117 /min MEDGEN ([facility] [place] , ) Inhaled oxygen 97 % 97 % MEDGEN ([facility], ) Body mass index 37.9 kg/m2 37.9 kg/m2 MEDGEN (S t (BMI) [Ratio] [facility] [place], ) Diastolic blood 88 mm[Hg] 88 mm[Hg] MEDGEN (S t pressure [facility] [place] , ) Systolic blood 124 mm[Hg] 124 mm[Hg] MEDGEN ([facility] , ) Body weight 228 lb 228 lb MEDGEN ([facility] [place] , ) Body height 65 in 65 in [facility] ([facility] Diastolic blood 76 mm[Hg] 76 mm[Hg] eCW3 ([facility]) Systolic blood 116 mm[Hg] 116 mm[Hg] eCW3 ([facility]) Body temperature 98.2 [degF] 98.2 [degF] eCW3 ( [facility]) Heart rate 20 /min 20 /min eCW3 ([facility]) Body mass index 37.24 kg/m2 37.24 kg/m2 eCW3 ([facility] (BMI) [Ratio] [facility]) Body weight 217 [lb_av] 217 [lb_av] eCW3 ([facility]) Body height 64 [in_i] 64 [in_i] eCW3 ([facility]) Heart rate 112 /min 112 /min MED[facility] ([facility] Body temperature 98 F 98 F MED[facility] ( [facility] Inhaled oxygen 96 % 96 % MEDGEN ([facility]) Body mass index 37.9 kg/m2 37.9 kg/m2 MEDGEN (S (BMI) [Ratio] [facility]) Diastolic blood 74 mm[Hg] 74 mm[Hg] MEDGEN ([facility]) Systolic blood 124 mm[Hg] 124 mm[Hg] MEDGEN ([facility] [place]) Body weight 228 lb 228 lb MED[facility] ([facility] Body height 65 in 65 in MEDGEN ([facility] Diastolic blood 81 mm[Hg] 81 mm[Hg] eCW3 ([facility]) Systolic blood 129 mm[Hg] 129 mm[Hg] eCW3 ([facility]) Body temperature 98.4 [degF] 98.4 [degF] eCW3 ( [facility]) Heart rate 20 /min 20 /min eCW3 ([facility]) Body mass index 37.59 kg/m2 37.59 kg/m2 eCW3 ([facility] (BMI) [Ratio] [facility]) Body weight 219 [lb_av] 219 [lb_av] eCW3 ([facility]) Body height 64 [in_i] 64 [in_i] eCW3 ([facility]) Diastolic blood 78 mm[Hg] 78 mm[Hg] eCW3 ([facility]) Systolic blood 128 mm[Hg] 128 mm[Hg] eCW3 ([facility]) Body temperature 97.9 [degF] 97.9 [degF] eCW3 ( [facility]) Heart rate 20 /min 20 /min eCW3 ([facility]) Body mass index 37.59 kg/m2 37.59 kg/m2 eCW3 ([facility] (BMI) [Ratio] [facility]) Body weight 219 [lb_av] 219 [lb_av] eCW3 ([facility]) Body height 64 [in_i] 64 [in_i] eCW3 ([facility]) Diastolic blood 84 mm[Hg] 84 mm[Hg] eCW3 ([facility]) Systolic blood 134 mm[Hg] 134 mm[Hg] eCW3 ([facility]) Body temperature 98 [degF] 98 [degF] eCW3 ([facility]) Heart rate 20 /min 20 /min eCW3 ([facility]) Body mass index 37.59 kg/m2 37.59 kg/m2 eCW3 ([facility] (BMI) [Ratio] [facility]) Body weight 219 [lb_av] 219 [lb_av] eCW3 ([facility]) Body height 64 [in_i] 64 [in_i] eCW3 ([facility]) Heart rate 84 /min 84 /min MEDGEN ([facility] [place] , ) Body temperature 98 F 98 F MEDGEN ( [facility] [place] , ) Inhaled oxygen 99 % 99 % MEDGEN ([facility], ) Body mass index 37.9 kg/m2 37.9 kg/m2 MEDGEN (S t (BMI) [Ratio] [facility] [place], ) Diastolic blood 80 mm[Hg] 80 mm[Hg] MEDGEN (S t [facility] , ) Systolic blood 153 mm[Hg] 153 mm[Hg] MEDGEN ([facility] [place]) Body weight 228 lb 228 lb MED[facility] ([facility] Body height 65 in 65 in MEDGEN ([facility] Diastolic blood 81 mm[Hg] 81 mm[Hg] eCW3 ([facility]) Systolic blood 136 mm[Hg] 136 mm[Hg] eCW3 ([facility]) Body temperature 98.2 [degF] 98.2 [degF] eCW3 ( [facility]) Heart rate 20 /min 20 /min eCW3 ([facility]) Body mass index 37.93 kg/m2 37.93 kg/m2 eCW3 (H yana (BMI) [Ratio] [facility]) Body weight 221 [lb_av] 221 [lb_av] eCW3 ([facility]) Body height 64 [in_i] 64 [in_i] eCW3 ([facility]) Heart rate 72 /min 72 /min MED[facility] ([facility] Respiratory rate 16 /min 16 /min MEDGEN ( [facility] Body temperature 98 F 98 F MEDGEN ( [facility]) Diastolic blood 80 mm[Hg] 80 mm[Hg] MEDGEN ([facility]) Systolic blood 121 mm[Hg] 121 mm[Hg] MEDGEN ([facility]) Body weight 221 lb 221 lb MEDGEN ([facility] Heart rate 92 /min 92 /min MEDGEN ([facility] Inhaled oxygen 96 % 96 % MEDGEN ([facility]) Diastolic blood 82 mm[Hg] 82 mm[Hg] MEDGEN ([facility]) Systolic blood 139 mm[Hg] 139 mm[Hg] MEDGEN ([facility]) Diastolic blood 74 mm[Hg] 74 mm[Hg] eCW3 ([facility]) Systolic blood 123 mm[Hg] 123 mm[Hg] eCW3 ([facility]) Body temperature 98.9 [degF] 98.9 [degF] eCW3 ( [facility]) Heart rate 20 /min 20 /min eCW3 ([facility]) Body mass index 38.51 kg/m2 38.51 kg/m2 eCW3 (Janel millan (BMI) [Ratio] [facility]) Body weight 224.4 224.4 [lb_av] eCW3 ([facility] on [lb_av] [facility]) Body height 64 [in_i] 64 [in_i] eCW3 ([facility]) Diastolic blood 73 mm[Hg] 73 mm[Hg] eCW3 ([facility]) Systolic blood 121 mm[Hg] 121 mm[Hg] eCW3 ([facility]) Body temperature 98.3 [degF] 98.3 [degF] eCW3 ( [facility]) Heart rate 20 /min 20 /min eCW3 ([facility]) Body mass index 38.10 kg/m2 38.10 kg/m2 eCW3 (Janel millan (BMI) [Ratio] [facility]) Body weight 222 [lb_av] 222 [lb_av] eCW3 ([facility]) Body height 64 [in_i] 64 [in_i] eCW3 ([facility]) Heart rate 84 /min 84 /min MEDGEN ([facility] [place] , ) Respiratory rate 18 /min 18 /min MEDGEN ( [facility] Body temperature 97.8 F 97.8 F MEDGEN ( [facility] Inhaled oxygen 94 % 94 % MEDGEN ([facility]) Diastolic blood 80 mm[Hg] 80 mm[Hg] MEDGEN ([facility]) Systolic blood 130 mm[Hg] 130 mm[Hg] MEDGEN ([facility] , ) Body weight 220 lb 220 lb MEDGEN ([facility] Diastolic blood 59 mm[Hg] 59 mm[Hg] eCW3 ([facility]) Systolic blood 120 mm[Hg] 120 mm[Hg] eCW3 ([facility]) Body temperature 97.9 [degF] 97.9 [degF] eCW3 ( [facility]) Heart rate 20 /min 20 /min eCW3 ([facility]) Body mass index 37.59 kg/m2 37.59 kg/m2 eCW3 (H udgirish (BMI) [Ratio] [facility]) Body weight 219 [lb_av] 219 [lb_av] eCW3 ([facility]) Body height 64 [in_i] 64 [in_i] eCW3 ([facility]) Heart rate 92 /min 92 /min MEDGEN ([facility] , ) Body temperature 97.8 F 97.8 F MEDGEN ( [facility] , ) Inhaled oxygen 98 % 98 % MEDGEN ([facility], ) Diastolic blood 94 mm[Hg] 94 mm[Hg] MEDGEN (S t pressure [facility] [place] , ) Systolic blood 138 mm[Hg] 138 mm[Hg] MEDGEN (St pressure [facility] [place] , ) Heart rate 86 /min 86 /min MEDGEN ([facility] , ) Body temperature 98.5 F 98.5 F MEDGEN ( [facility] , ) Inhaled oxygen 98 % 98 % MEDGEN (St concentration [facility], ) Diastolic blood 90 mm[Hg] 90 mm[Hg] MEDGEN (S t pressure [facility] [place] , ) Systolic blood 130 mm[Hg] 130 mm[Hg] MEDGEN ([facility] , ) Diastolic blood 79 mm[Hg] 79 mm[Hg] eCW3 ([facility]) Systolic blood 124 mm[Hg] 124 mm[Hg] eCW3 ([facility]) Body temperature 98.1 [degF] 98.1 [degF] eCW3 ( [facility]) Heart rate 20 /min 20 /min eCW3 ([facility]) Body mass index 37.07 kg/m2 37.07 kg/m2 eCW3 (H yana (BMI) [Ratio] [facility]) Body weight 216 [lb_av] 216 [lb_av] eCW3 ([facility]) Body height 64 [in_i] 64 [in_i] eCW3 ([facility]) Heart rate 93 /min 93 /min MED[facility] ([facility] Respiratory rate 22 /min 22 /min MEDGEN ( [facility] Inhaled oxygen 99 % 99 % MEDGEN ([facility]) Body mass index 36.4 kg/m2 36.4 kg/m2 MEDGEN (S t (BMI) [Ratio] [facility]) Diastolic blood 82 mm[Hg] 82 mm[Hg] MEDGEN ([facility]) Systolic blood 130 mm[Hg] 130 mm[Hg] MEDGEN ([facility]) Body weight 212 lb 212 lb MEDGEN ([facility] Body height 64 in 64 in MEDGEN ([facility] Heart rate 95 /min 95 /min MEDGEN ([facility] Inhaled oxygen 99 % 99 % MEDGEN ([facility]) Body mass index 36.4 kg/m2 36.4 kg/m2 MEDGEN (S t (BMI) [Ratio] [facility] [place], ) Diastolic blood 98 mm[Hg] 98 mm[Hg] MEDGEN ([facility]) Systolic blood 140 mm[Hg] 140 mm[Hg] MEDGEN ([facility]) Body weight 212 lb 212 lb MEDGEN ([facility] Body height 64 in 64 in MEDGEN ([facility] Heart rate 89 /min 89 /min MEDGEN ([facility] Inhaled oxygen 99 % 99 % MEDGEN ([facility], ) Body mass index 34 kg/m2 34 kg/m2 MEDGEN (S t (BMI) [Ratio] [facility]) Diastolic blood 70 mm[Hg] 70 mm[Hg] MEDGEN ([facility]) Systolic blood 125 mm[Hg] 125 mm[Hg] MEDGEN ([facility]) Body weight 198 lb 198 lb MEDGEN ([facility] Body height 64 in 64 in MEDGEN ([facility] Heart rate 85 /min 85 /min MED[facility] Inhaled oxygen 99 % 99 % MEDGEN ([facility], ) Body mass index 36 kg/m2 36 kg/m2 MEDGEN (S t (BMI) [Ratio] [facility]) Diastolic blood 82 mm[Hg] 82 mm[Hg] MEDGEN (S t [facility]) Systolic blood 130 mm[Hg] 130 mm[Hg] MEDGEN ([facility]) Body weight 210 lb 210 lb MEDGEN ([facility] Body height 64 in 64 in MEDGEN ([facility] Diastolic blood 77 mm[Hg] 77 mm[Hg] eCW2 ([facility]) Systolic blood 125 mm[Hg] 125 mm[Hg] eCW2 ([facility]) Body temperature 98.0 [degF] 98.0 [degF] eCW2 ( [facility]) Body mass index 35.53 kg/m2 35.53 kg/m2 eCW2 ([facility] (BMI) [Ratio] [facility]) Body weight 207 [lb_av] 207 [lb_av] eCW2 ([facility]) Body height 64 [in_us] 64 [in_us] eCW2 ([facility]) Diastolic blood 68 mm[Hg] 68 mm[Hg] eCW2 ([facility]) Systolic blood 108 mm[Hg] 108 mm[Hg] eCW2 ([facility]) Body temperature 98.2 [degF] 98.2 [degF] eCW2 ( [facility]) Heart rate 20 /min 20 /min eCW2 ([facility]) Body mass index 35.53 kg/m2 35.53 kg/m2 eCW2 ([facility] (BMI) [Ratio] [facility]) Body weight 207 [lb_av] 207 [lb_av] eCW2 ([facility]) Body height 64 [in_us] 64 [in_us] eCW2 ([facility]) Heart rate 90 /min 90 /min MEDGEN ([facility] Respiratory rate 18 /min 18 /min MEDGEN ( [facility] [facility]haled oxygen 97 % 97 % MEDGEN ([facility], ) Body mass index 36 kg/m2 36 kg/m2 MEDGEN (S t (BMI) [Ratio] [facility] [place], ) Diastolic blood 80 mm[Hg] 80 mm[Hg] MEDGEN (S t pressure [facility] [place]) Systolic blood 130 mm[Hg] 130 mm[Hg] MEDGEN ([facility]) Body weight 210 lb 210 lb MEDGEN ([facility] Body height 64 in 64 in MEDGEN ([facility] Heart rate 89 /min 89 /min MEDGEN ([facility] Inhaled oxygen 91 % 91 % MEDGEN ([facility], ) Body mass index 36.4 kg/m2 36.4 kg/m2 MEDGEN (S t (BMI) [Ratio] [facility] [place], ) Diastolic blood 82 mm[Hg] 82 mm[Hg] MEDGEN (S pressure [facility] [place]) Systolic blood 132 mm[Hg] 132 mm[Hg] MEDGEN ([facility]) Body weight 212 lb 212 lb MEDGEN ([facility] Body height 64 in 64 in MEDGEN ([facility] Heart rate 84 /min 84 /min MED[facility] ([facility] Respiratory rate 20 /min 20 /min MEDGEN ( [facility] Inhaled oxygen 98 % 98 % MEDGEN ([facility], ) Body mass index 36.4 kg/m2 36.4 kg/m2 MEDGEN (S t (BMI) [Ratio] [facility] [place], ) Diastolic blood 70 mm[Hg] 70 mm[Hg] MEDGEN (S t pressure [facility] [place]) Systolic blood 126 mm[Hg] 126 mm[Hg] MEDGEN ([facility]) Body weight 212 lb 212 lb MED[facility] ([facility] Body height 64 in 64 in MED[facility] ([facility] Heart rate 72 /min 72 /min MED[facility] ([facility] Respiratory rate 18 /min 18 /min MEDGEN ( [facility] Inhaled oxygen 97 % 97 % MEDGEN ([facility], ) Body mass index 36.4 kg/m2 36.4 kg/m2 MEDGEN (S t (BMI) [Ratio] [facility] [place], ) Diastolic blood 80 mm[Hg] 80 mm[Hg] MEDGEN (S t pressure [facility] [place]) Systolic blood 118 mm[Hg] 118 mm[Hg] MEDGEN ([facility] , ) Body weight 212 lb 212 lb MEDGEN ([facility] Body height 64 in 64 in MEDGEN ([facility] Heart rate 72 /min 72 /min MEDGEN ([facility] Respiratory rate 14 /min 14 /min MEDGEN ( [facility] Inhaled oxygen 97 % 97 % MEDGEN ([facility], ) Body mass index 36.4 kg/m2 36.4 kg/m2 MEDGEN (S t (BMI) [Ratio] [facility], ) Diastolic blood 80 mm[Hg] 80 mm[Hg] MEDGEN (S t pressure [facility] [place]) Systolic blood 122 mm[Hg] 122 mm[Hg] MEDGEN ([facility]) Body weight 212 lb 212 lb MEDGEN ([facility] Body height 64 in 64 in MEDGEN ([facility] Heart rate 72 /min 72 /min MEDGEN ([facility] Respiratory rate 14 /min 14 /min MEDGEN ( [facility]) Inhaled oxygen 97 % 97 % MEDGEN ([facility], ) Diastolic blood 84 mm[Hg] 84 mm[Hg] MEDGEN (S t [facility]) Systolic blood 130 mm[Hg] 130 mm[Hg] MEDGEN ([facility]) Respiratory rate 16 /min 16 /min MEDGEN ( [facility]) Inhaled oxygen 98 % 98 % MEDGEN ([facility], ) Systolic blood 120 mm[Hg] 120 mm[Hg] MEDGEN ([facility]) Heart rate 86 /min 86 /min MEDGEN ([facility]) Inhaled oxygen 97 % 97 % MEDGEN ([facility], ) Diastolic blood 88 mm[Hg] 88 mm[Hg] MEDGEN (S t pressure [facility] [place] , ) Systolic blood 140 mm[Hg] 140 mm[Hg] MEDGEN ([facility] , ) Patient Treatment Plan of Care Planned Activity Planned Date Details Description Data Source (s) cetirizine hydrochloride 03/13/2020 12:00:00 eCW3 ([place] 10 MG Oral Tablet AM [facility] e) [Zyrtec] Cimetidine 200 MG Oral 02/09/2020 12:00:00 eCW3 ([place] Tablet [facility]) Cimetidine 200 MG Oral 02/09/2020 12:00:00 eCW3 ([place] Tablet [facility]) Dymista 137-50 MCG/ACT 12/18/2019 12:00:00 eCW3 ([place] [facility]) Flonase Sensimist 27.5 12/18/2019 12:00:00 eCW3 ([place] MCG/SPRAY [facility]) Naproxen 500 MG Oral 11/23/2019 12:00:00 eCW3 ([place] Tablet [facility]) Naproxen 500 MG Oral 11/23/2019 12:00:00 eCW3 ([place] Tablet [facility]) Naproxen 500 MG Oral 11/23/2019 12:00:00 eCW3 ([place] Tablet [facility]) benzonatate 100 MG Oral 09/14/2019 12:00:00 eCW3 ([place] Capsule [Tessalon Perles] Pending sale to [facility]) Artificial Tears 1-0.3 % 09/11/2019 12:00:00 eCW3 ([place] [facility]) benzonatate 100 MG Oral 06/18/2018 12:00:00 eCW2 ([place] Capsule [Tessalon Perles] [facility]) Naproxen 500 MG Oral 06/14/2018 12:00:00 eCW2 ([place] Tablet [facility]) cetirizine hydrochloride 04/06/2017 12:00:00 eCW3 ([place] 10 MG Oral Tablet AM [facility]) [Zyrtec] ZyrTEC Allergy 10 mg 04/06/2017 12:00:00 eCW2 ([place] [facility]) ZyrTEC Allergy 10 mg 04/06/2017 12:00:00 eCW2 ([place] [facility]) cetirizine hydrochloride 04/06/2017 12:00:00 eCW3 ([place] 10 MG Oral Tablet AM [facility]) [Zyrtec] 60 ACTUAT Fluticasone 04/12/2014 12:00:00 eCW3 ([place] propionate 0.5 MG/ACTUAT AM EDT [facility]) / salmeterol 0.05 MG/ACTUAT Dry Powder Inhaler [Advair] Omeprazole 40 MG Delayed eCW 3 ([place] Release [facility]) Omeprazole 40 MG Delayed eCW 3 ([place] [facility]) montelukast 10 MG Oral eCW3 ([facility] Tablet [Singula] Health Ca re) Omeprazole 40 MG Delayed eCW 3 ([place] [facility]) Omeprazole 40 MG Delayed eCW 3 ([place] [facility]) olopatadine 1 MG/ML eCW3 ([facility] Ophthalmic [facility]) [Patanol] Omeprazole 40 MG Delayed eCW 3 ([place] Release [facility])
[2020-06-01] MEDS ORDERED: ALBUTEROL SO4 2.5/IPRATROPIUM 0.5 INH SOL 3 ML VIAL.NEB. NEB ONE ×3 (11:26→12:03)
--- NOTE | 2020-06-01 12:08 | PDOC ---
Documentation entered by Kamran Love SCRIBE, acting as scribe for Maia Leonard MD. Maia Leonard MD: This documentation has been prepared by the Ivan zepeda Aaron, SCRIBE, under my direction and personally reviewed by me in its entirety. I confirm that the documentation accurately reflects all work, treatment, procedures, and medical decision making performed by me. Attending Attestation - Resident Resident Name: LeoJavi - ED Attending Attestation I have performed the following: I have examined & evaluated the patient, The case was reviewed & discussed with the resident, I agree w/resident's findings & plan, Exceptions are as noted - HPI HPI: 06/01/20 11:32 The patient is a 49 year old female with a significant PMH of bronchial asthma, anemia, obesity, and seasonal allergies who presents to the emergency department after 2 days of increasing SOB. Patient reports that SOB and subjective wheezing began two days ago, and notes that wheezing is normal with her seasonal allergies. Patient was seen by [facility] 1 week prior for similar symptoms to rule out ACS. Patient endorses chest tightness. The patient denies chest pain, nausea, vomiting, fever, and chills. Patient denies any other symptoms. Allergies: NKDA Past surgical history: Cholecystectomy. Left knee replacement. Social Hx: non-smoker PCP: Kimberly Neff - Physicial Exam PE: 06/01/20 12:01 General: well appearing HEENT: NCAT, MMM Chest: very mild coarse breath sounds, good air entry, speaking in full sentences, no accessory muscle use CVS: + s1 s2, RRR - Medical Decision Making 06/01/20 12:04 49 yo F with SOB and chest tightness, possible asthma exacerbation vs. msk pain vs. much lower suspicion for ACS PE or PNA and EKG NSR rate 72, without ischemic changes. Plan: -labs -cxr -trial of albuterol nebs -reassess This clinical encounter is taking place during a federal and state health care emergency attributable to the novel [place] Virus pandemic. The [place] of the Department of Health and Human Services has declared, pursuant to the Public Health Service Act 319F-3 (42 U.S.C. 247d-6d), that a covered persons activities related to medical countermeasures against COVID-19 will be immune from liability under Federal and State law. 06/01/20 17:34 Patient with resolution of symptoms s/p albuterol nebs x2. Ambulatory in ED withotu any respiratory complaints. Labs and imaging reviewed. Will d/c with retunr precautions, recommend PMD f/u. Discharge - Discharge Information Problems reviewed: Yes Clinical Impression/Diagnosis: Asthma Qualifiers: Asthma severity: mild Asthma persistence: unspecified Asthma complication type: with acute exacerbation Qualified Code(s): J45.901 - Unspecified asthma with (acute) exacerbation Condition: Stable Disposition: HOME - Follow up/Referral Referrals: Kimberly Neff NP [Primary Care Provider] - - Patient Discharge Instructions Patient Printed Discharge Instructions: DI for Asthma -- Adult Additional Instructions: You were seen in the ER for shortness of breath and wheezing. Your symptoms improved with nebulizer treatments. Follow up with your primary care provider as soon as possible, in the next 4-5 days. Return to the ER if you develop difficulty breathing, chest pain, or high fevers. - Post Discharge Activity Work/Back to School Note: Back to Work
[2020-06-01 12:13] LABS: BASO % 0.2 % (0-2.0); EOS % 0.9 % (0-4.5); HEMATOCRIT 35.2 % (32.4-45.2); HEMOGLOBIN 11.8 GM/dL (10.7-15.3); MCH 31.4 pg (25.7-33.7); MCHC 33.4 g/dl (32.0-36.0); MEAN CELL VOLUME 94.2 fl (80-96); MEAN PLT VOLUME 8.2 fl (7.5-11.1); MONO % 7.1 % (3.8-10.2); NEUT % 69.8 % (42.8-82.8); PLATELET COUNT 220 K/MM3 (134-434); RBC 3.74 M/mm3 (3.60-5.2); WHITE BLOOD COUNT 9.8 K/mm3 (4.0-10.0)
[2020-06-01 12:42] LABS: ALBUMIN 3.6 g/dl (3.4-5.0); ALK PHOS 81 U/L (45-117); ANION GAP 5 MMOL/L (8-16); BILIRUBIN,TOTAL 0.4 mg/dL (0.2-1); BLOOD UREA NITROGEN 7.8 mg/dL (7-18); CALCIUM 9.5 mg/dL (8.5-10.1); CHLORIDE 106 mmol/L (98-107); CO2 34 mmol/L (21-32); CREATININE 0.8 mg/dL (0.55-1.3); GLUCOSE,RANDOM 90 mg/dL (74-106); POTASSIUM 3.6 mmol/L (3.5-5.1); SGOT/AST 14 U/L (15-37); SGPT/ALT 19 U/L (13-61); SODIUM 144 mmol/L (136-145)
--- NOTE | 2020-06-01 12:56 | PDOC ---
History of Present Illness - General Chief Complaint: Chest Pain Stated Complaint: ASTHMA Time Seen by Provider: 06/01/20 11:11 History Source: Patient - History of Present Illness Initial Comments: 06/01/20 13:01 49F w/hx asthma, HTN p/w 2 days of chest tightness, shortness of breath. She reports that symptoms began while at rest, and feel similar to prior asthma exacerbations. Past History - Medical History Allergies/Adverse Reactions: Allergies Allergy/AdvReac Type Severity Reaction Status Date / Time No Known Allergies Allergy Verified 06/01/20 10:34 Home Medications: Ambulatory Orders Cetirizine HCl [Zyrtec] 10 mg PO DAILY 05/18/12 Albuterol Sulfate Inhaler - [Ventolin HFA Inhaler -] 2 inh IH Q4H PRN #1 inh 09/15/12 Famotidine [Pepcid -] 40 mg PO DAILY 05/21/20 Fluticasone Prop 0.05% Nasal [Flonase -] 1 spray NS DAILY 05/21/20 Montelukast Sodium [Singulair] 10 mg PO DAILY 05/21/20 Salmeterol/Fluticasone [Advair 500Mcg/50Mcg -] 1 inh IH BID 05/21/20 Anemia: No Asthma: Yes Cancer: No Cardiac Disorders: No CVA: No COPD: No CHF: No Dementia: No Diabetes: No GI Disorders: No Disorders: No HTN: No Hypercholesterolemia: No Liver Disease: No Seizures: No Thyroid Disease: No - Surgical History Abdominal Surgery: Yes Appendectomy: No Cardiac Surgery: No Cholecystectomy: Yes Lung Surgery: No Neurologic Surgery: No Orthopedic Surgery: Yes (left knee 01/07/2018, right bunion) - Reproductive History Is Patient Now?: No - Psycho-Social/Smoking History Smoking Status: No Smoking History: Never smoked Have you smoked in the past 12 months: No Number of Cigarettes Smoked Daily: 0 - Substance Abuse Hx (Audit-C & DAST Scrn) How often the patient has a drink containing alcohol: Never Score: In Men: 4 or > Positive; In Women: 3 or > Positive: 0 Screen Result (Pos requires Nsg. Audit-10AR): Negative In the last yr the pt used illegal drug/Rx for NonMed reason: No Score: Yes response is considered Positive: 0 Screen Result (Positive result requires Nsg. DAST-10): Negative *Physical Exam - Vital Signs Last Vital Signs Temp Pulse Resp BP Pulse Ox 98.4 F 88 22 H 143/98 100 06/01/20 10:34 06/01/20 10:34 06/01/20 10:34 06/01/20 10:34 06/01/20 11:00 ED Treatment Course - LABORATORY CBC & Chemistry Diagram: 06/01/20 11:35 06/01/20 11:35 - ADDITIONAL ORDERS Additional order review: Laboratory Results 06/01/20 11:35 Sodium 144 Potassium 3.6 Chloride 106 Carbon Dioxide 34 H Anion Gap 5 L BUN 7.8 Creatinine 0.8 Est GFR (CKD-EPI)AfAm 101.04 Est GFR (CKD-EPI)NonAf 87.18 Random Glucose 90 Calcium 9.5 Total Bilirubin 0.4 AST 14 L ALT 19 Alkaline Phosphatase 81 Troponin I < 0.02 Total Protein 7.0 Albumin 3.6 06/01/20 11:35 RBC 3.74 MCV 94.2 MCHC 33.4 RDW 15.0 MPV 8.2 Neutrophils % 69.8 D Lymphocytes % 22.0 D Monocytes % 7.1 D Eosinophils % 0.9 D Basophils % 0.2 - RADIOLOGY Radiology Studies Ordered: Category Date Time Status CHEST X-RAY PORTABLE* [RAD] Stat Radiology 06/01/20 11:26 Taken - Medications Given in the ED: ED Medications Discontinued Medications Generic Name Dose Route Start Last Admin Trade Name Freq PRN Reason Stop Dose Admin Albuterol/Ipratropium 1 amp 06/01/20 11:26 06/01/20 11:48 Duoneb - NEB 06/01/20 11:27 1 amp ONCE ONE Administration Albuterol/Ipratropium 1 amp 06/01/20 12:03 06/01/20 12:10 Duoneb - NEB 06/01/20 12:04 1 amp ONCE ONE Administration Discharge - Discharge Information Problems reviewed: Yes Clinical Impression/Diagnosis: Asthma Qualifiers: Asthma severity: mild Asthma persistence: unspecified Asthma complication type: with acute exacerbation Qualified Code(s): J45.901 - Unspecified asthma with (acute) exacerbation Condition: Stable Disposition: HOME - Admission No - Follow up/Referral Referrals: Kimberly Neff NP [Primary Care Provider] - - Patient Discharge Instructions Patient Printed Discharge Instructions: DI for Asthma -- Adult Additional Instructions: You were seen in the ER for shortness of breath and wheezing. Your symptoms improved with nebulizer treatments. Follow up with your primary care provider as soon as possible, in the next 4-5 days. Return to the ER if you develop difficulty breathing, chest pain, or high fevers. - Post Discharge Activity
[2020-06-01 13:41] VITALS: BP 132/94; PULSE 70
--- NOTE | 2020-06-01 16:08 | EKG ---
Test Reason : Blood Pressure : / mmHG Vent. Rate : 072 BPM Atrial Rate : 072 BPM P-R Int : 166 ms QRS Dur : 098 ms QT Int : 370 ms P-R-T Axes : 051 -09 021 degrees QTc Int : 405 ms NORMAL SINUS RHYTHM MINIMAL VOLTAGE CRITERIA FOR LVH, MAY BE NORMAL VARIANT BORDERLINE ECG WHEN COMPARED WITH ECG OF 20-MAY-2020 21:10, T WAVE INVERSION NO LONGER EVIDENT IN ANTERIOR LEADS Confirmed by MD Mickey, Lincoln ([id number]) on 06/01/2020 4:08:23 PM Referred By: Confirmed By:Lincoln Arevalo MD
== END 2020-06-01 13:46 | disposition home or self-care (01) ==
LOC: JER 10:32
PROC: 3E0F7GC Introduction of Other Therapeutic Substance into Respiratory Tract, Via Natural or Artificial Opening (ICD-10-PCS; principal; 2020-06-01)
DX: J45.901 Unspecified asthma with (acute) exacerbation (principal)
CPT/HCPCS: 36415; 71045-TC-FY; 80053; 84484; 85025; 93005; 93010; 99285-25

== ENCOUNTER 2020-08-08 19:12 | Emergency (ER) | payer MEDICARE, OTHER ==
[2020-08-08 20:17] VITALS: TEMP 97.1; BMI 36.3
[2020-08-08] MEDS ORDERED: ALBUTEROL SO4 HFA INHALER IH ONE ×2 (21:17→21:20)
[2020-08-08] MEDS ORDERED: predniSONE 20 MG TABLET (UD) PO ONE (21:17)
[2020-08-08] MEDS ORDERED: predniSONE 20 MG TABLET (UD) ONE (21:20)
[2020-08-08 21:33] LABS: BASO % 0.3 % (0-2.0); EOS % 0.4 % (0-4.5); HEMATOCRIT 33.1 % (32.4-45.2); HEMOGLOBIN 11.2 GM/dL (10.7-15.3); LYMPH % 28.2 % (8-40); MCH 31.9 pg (25.7-33.7); MCHC 33.8 g/dl (32.0-36.0); MEAN CELL VOLUME 94.3 fl (80-96); MEAN PLT VOLUME 8.3 fl (7.5-11.1); MONO % 7.2 % (3.8-10.2); NEUT % 63.9 % (42.8-82.8); PLATELET COUNT 217 K/MM3 (134-434); RBC 3.51 M/mm3 (3.60-5.2); RDW 15.2 % (11.6-15.6); WHITE BLOOD COUNT 7.5 K/mm3 (4.0-10.0)
[2020-08-08 22:03] LABS: CHLORIDE 110 mmol/L (98-107); POTASSIUM 3.5 mmol/L (3.5-5.1); SODIUM 144 mmol/L (136-145)
[2020-08-08 22:05] LABS: ANION GAP 6 MMOL/L (8-16); BLOOD UREA NITROGEN 9.4 mg/dL (7-18); CALCIUM 9.2 mg/dL (8.5-10.1); CO2 29 mmol/L (21-32)
[2020-08-08 22:06] LABS: GLUCOSE,RANDOM 89 mg/dL (74-106)
[2020-08-08 22:08] LABS: SGOT/AST 15 U/L (15-37); SGPT/ALT 15 U/L (13-61)
[2020-08-08 22:09] LABS: CREATININE 0.9 mg/dL (0.55-1.3)
[2020-08-08 22:10] LABS: BILIRUBIN,TOTAL 0.7 mg/dL (0.2-1); TOT PROT 7.1 g/dl (6.4-8.2)
[2020-08-08 22:11] LABS: ALK PHOS 63 U/L (45-117)
[2020-08-09] MEDS ORDERED: ACETAMINOPHEN 325 MG TABLET (FP) PO ONE (01:25)
[2020-08-09] MEDS ORDERED: ACETAMINOPHEN 325 MG TABLET (FP) ONE (01:48)
[2020-08-09 02:22] VITALS: BP 131/91; PULSE 71
== END 2020-08-09 02:22 | disposition home or self-care (01) ==
LOC: JER 19:12
DX: R06.02 Shortness of breath (principal); R07.89 Other chest pain
CPT/HCPCS: 36415; 71046-TC-FY; 80053; 82550; 84484; 85025; 93005; 93010; 99285-25

== ENCOUNTER → 2022-04-07 | Emergency (ER) | payer MEDICARE, OTHER ==
[2022-04-07 16:26] VITALS: BP 160/83; PULSE 76; RESP 20; TEMP 98.9; BMI 35.3
== END | disposition left against medical advice (07) ==
LOC: JER 16:00
DX: M25.562 Pain in left knee (principal)
CPT/HCPCS: 73564-TC-LT-FY; 99283-25

== ENCOUNTER 2023-10-15 03:58 | Day surgery (SDC) | payer OTHER ==
[2023-10-13 12:53] VITALS: BMI 35.3
[2023-10-15] MEDS ORDERED: LIDOCAINE HCL/PF 1% SDV 5ML VIAL ONE (07:33)
[2023-10-15] MEDS ORDERED: DEXAMETHASONE SOD PHOSPHATE 10 MG/1 ML VIAL ONE (07:33)
[2023-10-15] MEDS ORDERED: ACETAMINOPHEN 500 MG TABLET (FP) PO PRN (12:38)
[2023-10-15 13:11] VITALS: RESP 18
[2023-10-15] MEDS: LIDOCAINE 1% P/F 10 MG/ML VIAL INF ONE ×2 (14:22)
[2023-10-15] MEDS: IOHEXOL 180 MG/1 ML ML IJ ONE ×2 (14:22)
[2023-10-15] MEDS: DEXAMETHASONE SOD PHOSPHATE 10 MG/1 ML VIAL IVPUSH ONE ×2 (14:22)
[2023-10-15 15:15] VITALS: BP 148/80; PULSE 88; TEMP 98.4
== END 2023-10-15 15:25 | disposition home or self-care (01) ==
LOC: JASU-SURG 03:58
PROVIDERS: ATTEND Pain Medicine Pain Medicine
PROC: 3E0R3BZ Introduction of Anesthetic Agent into Spinal Canal, Percutaneous Approach (ICD-10-PCS; 2023-10-15)
PROC: 3E0R33Z Introduction of Anti-inflammatory into Spinal Canal, Percutaneous Approach (ICD-10-PCS; principal; 2023-10-15 11:00)
DX: M54.16 Radiculopathy, lumbar region (principal)
CPT/HCPCS: 76000-TC-FY; J1100

== ENCOUNTER 2024-02-17 04:10 | Day surgery (SDC) | payer OTHER ==
[2024-02-11 17:17] VITALS: BMI 38.5
[2024-02-17] MEDS ORDERED: LIDOCAINE HCL/PF 1% SDV 5ML VIAL ONE (07:14)
[2024-02-17] MEDS ORDERED: DEXAMETHASONE SOD PHOSPHATE 10 MG/1 ML VIAL ONE (07:14)
[2024-02-17] MEDS: LIDOCAINE HCL 1% PRESERVATIVE FREE - 30ML VIAL IJ ONE (13:51)
[2024-02-17] MEDS: DEXAMETHASONE SOD PHOSPHATE 10 MG/1 ML VIAL IM ONE (13:52)
[2024-02-17] MEDS: IOHEXOL 180 MG/1 ML ML IJ ONE (13:53)
[2024-02-17 14:11] VITALS: RESP 16
[2024-02-17 14:27] VITALS: BP 170/60; PULSE 78; TEMP 97.8
[2024-02-17] MEDS ORDERED: ACETAMINOPHEN 500 MG TABLET (FP) PO PRN (15:37)
== END 2024-02-17 14:28 | disposition home or self-care (01) ==
LOC: JASU-SURG 04:10
PROVIDERS: ATTEND Pain Medicine Pain Medicine
PROC: 3E0R3BZ Introduction of Anesthetic Agent into Spinal Canal, Percutaneous Approach (ICD-10-PCS; 2024-02-17)
PROC: 3E0R33Z Introduction of Anti-inflammatory into Spinal Canal, Percutaneous Approach (ICD-10-PCS; principal; 2024-02-17 13:00)
DX: M48.061 Spinal stenosis, lumbar region without neurogenic claudication (principal); M54.16 Radiculopathy, lumbar region
CPT/HCPCS: 76000-TC-FY; J1100

== ENCOUNTER 2024-04-13 04:10 | Day surgery (SDC) | payer OTHER ==
[2024-04-12 15:18] VITALS: BMI 36.2
[2024-04-13] MEDS ORDERED: BACITRACIN ZINC 15 GM TUBE TOPICAL OINTMENT ONE (13:38)
[2024-04-13] MEDS ORDERED: MIDAZOLAM HCL 2 MG/2 ML SINGLE DOSE VIAL ONE (13:57)
[2024-04-13] MEDS ORDERED: PROPOFOL 40 ML ONE (13:57)
[2024-04-13] MEDS ORDERED: ALBUTEROL SO4 HFA INHALER IH ONE (14:00)
[2024-04-13] MEDS ORDERED: ROCURONIUM BROMIDE 50 MG/5 ML SYRINGE ONE (14:01)
[2024-04-13] MEDS ORDERED: SUCCINYLCHOLINE CHLORIDE 200 MG/10 ML SYRINGE ONE (14:01)
[2024-04-13] MEDS ORDERED: DEXAMETHASONE SOD PHOSPHATE 4 MG/1 ML VIAL ONE (14:14)
[2024-04-13] MEDS ORDERED: ceFAZolin SODIUM 1 GM VIAL ONE (14:14)
[2024-04-13] MEDS: ceFAZolin 2 GRAM PREMIX BAG IVPB ONE (14:25)
[2024-04-13] MEDS: LIDOCAINE 1%/EPI 1:100000 (20 ML MULTI DOSE VIAL) IJ ONE (15:00)
[2024-04-13] MEDS ORDERED: hydrALAZINE HCL 20 MG/ML VIAL ONE (15:04)
[2024-04-13] MEDS ORDERED: NEOSTIGMINE METHYLSULFATE 0.5 MG/1 ML - 10 ML MDV ONE (15:07)
[2024-04-13] MEDS ORDERED: GLYCOPYRROLATE 0.2 MG/1 ML VIAL ONE (15:08)
[2024-04-13] MEDS ORDERED: oxyCODONE HCL 5 MG TABLET PO PRN ×2 (15:27)
[2024-04-13] MEDS ORDERED: PROMETHAZINE HCL 25 MG/1 ML VIAL IVPB PRN (15:27)
[2024-04-13] MEDS ORDERED: LACTATED RINGERS SOLUTION 1,000 ML IV SCH (15:30)
[2024-04-13] MEDS ORDERED: ACETAMINOPHEN INJECTION 100 ML IVPB ONE (16:05)
[2024-04-13] MEDS: ACETAMINOPHEN 1000 MG/100 ML BAG IVPB ONE (16:09)
[2024-04-13] MEDS ORDERED: ONDANSETRON 4 MG/2 ML VIAL ONE (16:45)
[2024-04-13] MEDS: ONDANSETRON 4 MG/2 ML VIAL IVPUSH PRN (16:47)
[2024-04-13 17:30] VITALS: TEMP 97.8
[2024-04-13 18:48] VITALS: BP 130/72; PULSE 90; RESP 20
== END 2024-04-13 18:15 | disposition home or self-care (01) ==
LOC: JASU-SURG 04:10
PROVIDERS: ATTEND Otolaryngology
PROC: 09BU8ZZ Excision of Right Ethmoid Sinus, Via Natural or Artificial Opening Endoscopic (ICD-10-PCS; 2024-04-13)
PROC: 09BV8ZZ Excision of Left Ethmoid Sinus, Via Natural or Artificial Opening Endoscopic (ICD-10-PCS; principal; 2024-04-13 13:45)
DX: J32.9 Chronic sinusitis, unspecified (principal); J34.3 Hypertrophy of nasal turbinates; R09.81 Nasal congestion; J34.2 Deviated nasal septum
CPT/HCPCS: 88304-TC; 94760; J0131

== ENCOUNTER 2024-07-13 05:03 | Day surgery (SDC) | payer OTHER ==
[2024-07-11 18:37] VITALS: BMI 36.2
[2024-07-13] MEDS ORDERED: LIDOCAINE HCL/PF 1% SDV 5ML VIAL ONE (07:25)
[2024-07-13] MEDS: LIDOCAINE HCL 1% PRESERVATIVE FREE - 30ML VIAL IJ ONE ×2 (11:30)
[2024-07-13 12:08] VITALS: RESP 18
[2024-07-13 12:35] VITALS: BP 147/78; PULSE 82; TEMP 98
== END 2024-07-13 12:30 | disposition home or self-care (01) ==
LOC: JASU-SURG 05:03
PROVIDERS: ATTEND Pain Medicine Pain Medicine
PROC: 01HY3MZ Insertion of Neurostimulator Lead into Peripheral Nerve, Percutaneous Approach (ICD-10-PCS; principal; 2024-07-13 11:15)
DX: G89.4 Chronic pain syndrome (principal); M25.562 Pain in left knee
CPT/HCPCS: C1778

== ENCOUNTER 2024-09-07 04:05 | Day surgery (SDC) | payer OTHER ==
[2024-09-01 14:12] VITALS: BMI 36.2
[2024-09-07 07:55] VITALS: RESP 16; TEMP 97.6
[2024-09-07] MEDS ORDERED: ACETAMINOPHEN 500 MG TABLET (FP) PO PRN (09:17)
[2024-09-07 09:21] VITALS: BP 140/70; PULSE 76
== END 2024-09-07 09:51 | disposition home or self-care (01) ==
LOC: JASU-SURG 04:05
PROVIDERS: ATTEND Pain Medicine Pain Medicine
PROC: 01HY3MZ Insertion of Neurostimulator Lead into Peripheral Nerve, Percutaneous Approach (ICD-10-PCS; principal; 2024-09-07 09:00)
DX: G89.4 Chronic pain syndrome (principal); M25.562 Pain in left knee
CPT/HCPCS: 64555; C1778; 81025

== ENCOUNTER 2025-01-18 07:15 | Day surgery (SDC) | payer OTHER ==
[2025-01-16 14:39] VITALS: BMI 36.2
[2025-01-18 12:30] VITALS: BP 143/66; PULSE 79; RESP 16; TEMP 96.6
[2025-01-18] MEDS ORDERED: CEFAZOLIN 2 GM/D5W 2 GM/50 ML ML IVPB ONE (12:36)
[2025-01-18] MEDS: CEFAZOLIN SODIUM 2 GM in DEXTROSE 5%-WATER 100 ML IVPB ONE (13:05)
[2025-01-18] MEDS: LIDOCAINE HCL 2% (50ML VIAL) INF ONE (15:30)
[2025-01-18] MEDS: LIDOCAINE HCL 1%, 10 MG/ML (50 mL VIAL) INF ONE (15:30)
[2025-01-18] MEDS: LIDOCAINE HCL 1% PRESERVATIVE FREE - 30ML VIAL INF ONE (15:30)
[2025-01-18] MEDS: BUPIVACAINE HCL/PF 0.25% (2.5MG/ML) 10 ML VIAL IJ ONE (15:30)
== END 2025-01-18 17:00 | disposition home or self-care (01) ==
LOC: JASU-SURG 07:15
PROVIDERS: ATTEND Pain Medicine Pain Medicine
PROC: 01HY0MZ Insertion of Neurostimulator Lead into Peripheral Nerve, Open Approach (ICD-10-PCS; principal; 2025-01-18 13:45)
DX: G89.4 Chronic pain syndrome (principal)
CPT/HCPCS: 64575; C1778; 81025